=== PATIENT | female | born 1935 | race Caucasian/White ===

== ENCOUNTER 2019-09-18 09:57 | Outpatient (CLI) | payer MEDICARE, OTHER, SELFPAY ==
--- NOTE | 2019-09-18 09:59 | MM_ITS ---
WS: [id number] SCREENING DIGITAL MAMMOGRAM WITH CAD HISTORY: SCREENING COMPARISON: 08/20/2018, 07/25/2017 and 07/13/2016 Bilateral CC and MLO views submitted. Computer aided detection analyzed. Breast composition: The breasts are heterogeneously dense, which may obscure small masses. Biopsy cli p upper outer quadrant RIGHT breast. Benign breast arterial calcifications. MM/[place] [id number] IMPRESSION: BI-RADS: 2-Benign FOLLOW UP: 1 Year Follow-up
== END 2019-09-18 09:58 | disposition home or self-care (01) ==
LOC: RADSHAW 09:57
PROVIDERS: Family Provider Family Medicine; PCP Family Medicine; Visit Provider Family Medicine
DX: Z12.31 Encounter for screening mammogram for malignant neoplasm of breast (principal)
CPT/HCPCS: 77067

== ENCOUNTER 2020-02-05 11:27 | Emergency (ER) | payer MEDICARE, OTHER, SELFPAY ==
[2020-02-05] VITALS (12 sets, daily range): BP systolic 108–210; BP diastolic 47–86; PULSE 70–89; RESP 16–18; TEMP 36.6–36.8; O2SAT 94–98
--- NOTE | 2020-02-05 11:37 | CT_ITS ---
WS: [id number] CT HEAD TECHNIQUE: Noncontrast CT of the head obtained from the skullbase to the vertex. CLINICAL INFORMATION: Symptoms of Acute Stroke COMPARISON: None. DLP: 718.[address] scans at [facility] use at least one of these dose optimization techniques: automat ed exposure control; mA and/or kV adjustment per patient size (includes targeted exams where dose is matched to clinical indication); or iterative reconstruction. FINDINGS: No evidence of intracranial hemorrhage or mass effect. Ventricular system and basal cisterns are poe nt. Mild small vessel changes with moderate parenchymal volume loss. No extra-axial fluid collections . No evidence of mass or mass effect. Normal montanez-white differentiation. Paranasal sinuses and mastoid air cells are well aerated. .Normal visualized soft tissues. Attempted notification Miki Montanez DO at 02/05/2020 11:[address]/CT head wo con* [id number] IMPRESSION: 1. No evidence of intracranial hemorrhage or mass effect. 2. Mild small vessel changes moderate parenchymal volume loss. 3. No acute intracranial findings.
--- NOTE | 2020-02-05 11:37 | ECG_ITS ---
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 Measurements Intervals [place] Rate: 78 P: 45 [place]: 158 QRS: -44 QRSD: 92 T: 52 QT: 379 QTc: 433 Interpretive Statements SINUS RHYTHM LEFT AXIS DEVIATION [QRS AXIS < -30] MODERATE VOLTAGE CRITERIA FOR LVH, CONSIDER NORMAL VARIANT [MEETS CRITERIA IN ONE OF: R(aVL), S(V1), R(V5), R(V5/V6)+S(V1)] No previous ECG available for comparison Electronically Signed On 02-05-2020 23:33:22 CDT by Sallie Moon M.D. [id number] damion
--- NOTE | 2020-02-05 11:37 | XR_ITS ---
WS: [id number] Portable AP upright chest, 02/05/2020 Clinical Data: stroke symptoms Comparison: PA and lateral chest, 03/28/2006. Findings: No nodules, masses or effusions are seen. The heart is normal. The pulmonary vascularity is not increased. No pneumonia or pneumothorax is seen. The aortic arch and descending aorta are minima lly tortuous. There are monitor leads on the chest wall. XR/XR chest 1V portable [id number] Impression: Atherosclerosis.
--- NOTE | 2020-02-05 11:43 | ED_ITS ---
HPI - Weakness General: Chief complaint: Weakness Stated complaint: Possible stroke Time Seen by Provider: 02/05/20 11:37 History of Present Illness: HPI Narrative: 84 year old female in with stroke like symptoms. Just before 11:00 while shopping at [employer] she developed left sided weakness and inability to walk. She reports sensory loss on the left side as well. No facial droop or vision changes. MD Complaint: focal weakness, numbness and difficulty walking Onset (ago): minute(s) Duration: constant and improved Location: LUE, LLE and face Migration: none Severity: mild Quality: tingling and numbness Relieving factors: none Exacerbating factors: none Associated symptoms: Reports headache(s); Denies chest pain, confusion, decreased appetite, diaphoresis, fever(s), myalgias, nausea, rash or syncope Review of Systems General: Reports: 10 or more systems reviewed and unremarkable except in HPI and below Const: Denies: fever(s) or diaphoresis Eyes: Denies: change in vision or blurry vision ENMT: Denies: throat pain, enlarged tonsils or swelling of lips/tongue Card: Denies: chest pain or syncope GI: Denies: nausea Neuro: Reports: headache(s); Denies: confusion Physical Exam Const: COMMON NORMALS: no acute distress, average body habitus, patient oriented x3, no limitations, healthy appearing, alert and well nourished ORIENTATION/CONSCIOUSNESS: Yes oriented to person, Yes oriented to place and Yes oriented to time HENMT: COMMON NORMALS: normocephalic HEAD & SCALP: normocephalic Eye: COMMON NORMALS: Equal, round and reactive pupils present, EOMs intact bilaterally and conjunctivae normal CONJUNCTIVA: Yes conjunctivae normal PUPIL: Yes Equal, round and reactive pupils present Neck/C-Spine: COMMON NORMALS: full ROM, no lymphadenopathy, supple, no meningeal signs, no JVD, Thyroid normal and No carotid bruits THYROID: Thyroid normal Chest: COMMONS NORMALS: normal inspection of the chest and normal palpation of entire chest wall Resp: COMMON NORMALS: normal respiratory effort, No retractions, No use of accessory muscles, clear to auscultation bilaterally and percussion normal AUSCULTATION: clear to auscultation bilaterally PERCUSSION: percussion normal Cardio: COMMON NORMALS: no JVD GI: COMMON NORMALS: Normal to inspection, nondistended, normoactive bowel sounds present, Soft to palpation, non-tender, No hepatosplenomegaly present, no masses and no bruits PALPATION: Yes Soft to palpation and Yes No hepatosplenomegaly present : COMMON NORMALS: Yes no CVA tenderness BLADDER/KIDNEY EXAM: Yes no CVA tenderness Back/Pelvis: COMMON NORMALS: no CVA tenderness Extremity: COMMON NORMALS: normal to inspection, full ROM, capillary refill normal, no joint enlargement, no clubbing, cyanosis or edema, no calf tenderness and no pedal edema Neuro: COMMON NORMALS: patient oriented x3; negative for moves all extremities (Motor weakness on the left, sensory loss on the left upper and lower ext), negative for no focal motor deficits and negative for no sensory deficits noted SENSORIUM/ORIENTATION: Yes alert, Yes oriented to person, Yes oriented to place and Yes oriented to time MENINGEAL SIGNS: Yes no meningeal signs CRANIAL NERVES: Yes CN normal except as noted COORDINATION/BALANCE: No [id number] test normal GAIT: Yes Unable to assess gait SENSORY EXAM: Yes sensory level loss detected COORDINATION: [id number] test abnormal Skin: COMMON NORMALS: no rashes or lesions noted, no wounds, turgor normal, no jaundice, no petechiae and no mottling GENERAL SKIN EXAM: no rashes or lesions noted and turgor normal Course Vital Signs: Vital signs: Vital Signs Temperature 97.9 F 02/05/20 11:53 Pulse Rate 71 02/05/20 13:02 Respiratory Rate 16 02/05/20 13:17 Blood Pressure 180/80 02/05/20 13:17 Pulse Oximetry 95 02/05/20 13:17 MDM - Weakness MDM Narrative: Medical decision making narrative: 84-year-old female with abrupt onset of neurologic symptoms consistent with acute stroke. Immediate CT and neurology consultation via telemedicine will be obtained while we check labs. I talked with Dr. Maat neurologist from [facility] and he agreed that she was a good candidate her blood pressure came down without any intervention and we administer TPA and then subsequently sent her for a CTA that showed some focal stenosis of the cerebral artery but there is no large vessel occlusion. The patient was then transferred to [facility] under the care of Dr. Irene as we do not have neurology services here currently. The patient had total resolution of her symptoms on repeat examination. Lab Data: Labs: Lab Results 02/05/20 02/05/20 02/05/20 Range/Units 11:50 11:50 11:50 WBC 8.4 (4.0-10.0) 10^3/ uL RBC 4.63 (4.1-5.3) 10^6/u L Hgb 14.0 (11.5-15.3) g/dL Hct 43.1 (37.0-47.0) % MCV 93.1 (81-99) fL MCH 30.2 (28.0-34.0) pg MCHC 32.5 (30.0-36.0) g/dL RDW 12.9 (12.1-15.1) % Plt Count 248 (130-400) 10^3/c mm MPV 9.5 (7.4-10.4) fL Neut % (Auto) 50.4 % Lymph % (Auto) 38.9 % [place] % (Auto) 7.0 % Eos % (Auto) 3.0 % Baso % (Auto) 0.5 % Neut # (Auto) 4.23 (1.8-7.7) 10^3/u L Lymph # (Auto) 3.3 (0.8-4.8) 10^3/u L [place] # (Auto) 0.6 (0.2-0.9) 10^3/u L Eos # (Auto) 0.3 (0.0-0.8) 10^3/u L Baso # (Auto) 0.0 (0.0-0.1) 10^3/u L Nucleated RBC % (a uto) 0 % Nucleated RBCs # 0.0 /100WBC PT 12.00 (10.5-13.3) SECO NDS INR 0.86 (0.8-1.2) APTT 24.4 (23.9-36.7) SECO NDS Sodium 138 (136-145) mmol/L Potassium 4.1 (3.5-5.1) mmol/L Chloride 102 (98-107) mmol/L Carbon Dioxide 24 (22-29) mmol/L Anion Gap 16.1 (5-19) BUN 20 (8-23) mg/dL Creatinine 1.0 H (0.5-0.9) mg/dL Glucose 102 (65-115) mg/dL Calculated Osmolal ity 283 L (285-295) mOsm/k g Calcium 8.8 (8.5-10.5) mg/dL Total Bilirubin 0.4 (0.15-1.2) mg/dL AST 22 (0-32) U/L ALT 17 (0-33) U/L Alkaline Phosphata se 66 (35-105) IU/L Total Protein 6.7 (6.6-8.7) g/dL Albumin 4.1 (3.5-5.2) g/dL Globulin 2.6 (1.3-4.6) g/dL Urine Color (Yellow) Urine Appearance (CLEAR) Urine pH (5-7) Ur Specific Gravit y (1.005-1.030) Urine Protein (Negative) Urine Glucose (UA) (Normal) Urine Ketones (Negative) Urine Blood (Negative) Urine Nitrate (Negative) Urine Bilirubin (NEGATIVE) Urine Urobilinogen (Negative) mg/dL Ur Leukocyte Edda ase (Negative) Urine RBC (0-2) /hpf Urine WBC (0-5) /hpf Ur Squamous Epith Cells (0-5) Amorphous Sediment Urine Bacteria (NONE) Urine Mucus 02/05/20 Range/Units 12:23 WBC (4.0-10.0) 10^3/ uL RBC (4.1-5.3) 10^6/u L Hgb (11.5-15.3) g/dL Hct (37.0-47.0) % MCV (81-99) fL MCH (28.0-34.0) pg MCHC (30.0-36.0) g/dL RDW (12.1-15.1) % Plt Count (130-400) 10^3/c mm MPV (7.4-10.4) fL Neut % (Auto) % Lymph % (Auto) % [place] % (Auto) % Eos % (Auto) % Baso % (Auto) % Neut # (Auto) (1.8-7.7) 10^3/u L Lymph # (Auto) (0.8-4.8) 10^3/u L [place] # (Auto) (0.2-0.9) 10^3/u L Eos # (Auto) (0.0-0.8) 10^3/u L Baso # (Auto) (0.0-0.1) 10^3/u L Nucleated RBC % (a uto) % Nucleated RBCs # /100WBC PT (10.5-13.3) SECO NDS INR (0.8-1.2) APTT (23.9-36.7) SECO NDS Sodium (136-145) mmol/L Potassium (3.5-5.1) mmol/L Chloride (98-107) mmol/L Carbon Dioxide (22-29) mmol/L Anion Gap (5-19) BUN (8-23) mg/dL Creatinine (0.5-0.9) mg/dL Glucose (65-115) mg/dL Calculated Osmolal ity (285-295) mOsm/k g Calcium (8.5-10.5) mg/dL Total Bilirubin (0.15-1.2) mg/dL AST (0-32) U/L ALT (0-33) U/L Alkaline Phosphata se (35-105) IU/L Total Protein (6.6-8.7) g/dL Albumin (3.5-5.2) g/dL Globulin (1.3-4.6) g/dL Urine Color Yellow (Yellow) Urine Appearance Sl hazy (CLEAR) Urine pH 7 (5-7) Ur Specific Gravit y 1.005 (1.005-1.030) Urine Protein Neg (Negative) Urine Glucose (UA) Norm (Normal) Urine Ketones Negative (Negative) Urine Blood Neg (Negative) Urine Nitrate Negative (Negative) Urine Bilirubin Neg (NEGATIVE) Urine Urobilinogen Norm (Negative) mg/dL Ur Leukocyte Edda ase 1+ H (Negative) Urine RBC 0-4 H (0-2) /hpf Urine WBC 0-4 H (0-5) /hpf Ur Squamous Epith Cells 5-10 H (0-5) Amorphous Sediment Not Reportable Urine Bacteria 1+ H (NONE) Urine Mucus Trace Discharge Plan Discharge Patient Disposition: Transfer to ED Clinical Impression: Acute ischemic right MCA stroke Condition: Stable Referrals: Montana Carrington Jr, MD [Primary Care Provider] - Coding Level of Care Code ED Technical Sales Representatives for Chg Fwd Exam Comprehensive
[2020-02-05 11:58] LABS: Basophils % 0.5 %; Eosinophils # 0.3 10^3/uL (0.0-0.8); Hematocrit 43.1 % (37.0-47.0); Lymphocytes # 3.3 10^3/uL (0.8-4.8); Lymphocytes % 38.9 %; Mean Corpuscular HGB Conc 32.5 g/dL (30.0-36.0); Mean Corpuscular Hemoglobin 30.2 pg (28.0-34.0); Mean Corpuscular Volume 93.1 fL (81-99); Mean Platelet Volume 9.5 fL (7.4-10.4); Monocytes # 0.6 10^3/uL (0.2-0.9); Neutrophils # 4.23 10^3/uL (1.8-7.7); Neutrophils % 50.4 %; Nucleated Red Blood Cells % 0 %; Platelet Count 248 10^3/cmm (130-400); Red Blood Count 4.63 10^6/uL (4.1-5.3); Red Cell Distribution Width 12.9 % (12.1-15.1); White Blood Count 8.4 10^3/uL (4.0-10.0)
--- NOTE | 2020-02-05 12:00 | PC.NURSE ---
blood glucose is 103, nurse and doctor are aware
[2020-02-05 12:07] LABS: INR 0.86 (0.8-1.2)
[2020-02-05 12:08] LABS: Partial Thromboplastin Time 24.4 SECONDS (23.9-36.7)
[2020-02-05 12:12] LABS: Alanine Aminotransferase 17 U/L (0-33); Albumin Level 4.1 g/dL (3.5-5.2); Alkaline Phosphatase 66 IU/L (35-105); Anion Gap 16.1 (5-19); Aspartate Amino Transferase 22 U/L (0-32); Blood Urea Nitrogen 20 mg/dL (8-23); Calcium 8.8 mg/dL (8.5-10.5); Carbon Dioxide 24 mmol/L (22-29); Chloride 102 mmol/L (98-107); Globulin 2.6 g/dL (1.3-4.6); Glucose 102 mg/dL (65-115); Osmolality Calculated 283 mOsm/kg (285-295); Potassium 4.1 mmol/L (3.5-5.1); Sodium 138 mmol/L (136-145); Total Bilirubin 0.4 mg/dL (0.15-1.2); Total Protein 6.7 g/dL (6.6-8.7)
--- NOTE | 2020-02-05 12:12 | CTR_ITS ---
PROCEDURE INFORMATION: Exam: CT Angiography Head With Contrast Exam date and time: 02/05/2020 12:42 PM Age: 84 years old Clinical indication: Weakness; Additional info: Stroke S/P tpa TECHNIQUE: Imaging protocol: Computed tomography angiography of the head with intravenous contrast. 3D rendering: MIP and/or 3D reconstructed images were created by the technologist. Radiation optimization: All CT scans at this facility use at least one of these dose optimization techniques: automated exposure control; mA and/or kV adjustment per patient size (includes targeted exams where dose is matched to clinical indication); or iterative reconstruction. Contrast material: VISI; Contrast volume: 95 ml; Contrast route: INTRAVENOUS (IV); COMPARISON: CT head wo con* [id number] 02/05/2020 11:33 AM RADIATION DOSE METRICS: Total DLP (mGy-cm): 1835.97 FINDINGS: Anterior cerebral arteries: No occlusion or significant stenosis. No aneurysm. Right internal carotid artery: Intracranial segment is patent with no significant stenosis or occlusion. No aneurysm. Right middle cerebral artery: There is severe stenosis of the mid to distal M1 segment of the right middle cerebral artery. Right posterior cerebral artery: There is a origin of the right posterior cerebral artery. There is severe focal stenosis of the mid P2 segment of the right posterior cerebral artery. Right vertebral artery: No occlusion or significant stenosis. No aneurysm. Left internal carotid artery: Intracranial segment is patent with no significant stenosis or occlusion. No aneurysm. Left middle cerebral artery: No occlusion or significant stenosis. No aneurysm. Left posterior cerebral artery: No occlusion or significant stenosis. No aneurysm. Left vertebral artery: No occlusion or significant stenosis. No aneurysm. Basilar artery: No occlusion or significant stenosis. No aneurysm. IMPRESSION: 1. 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 2. Severe, focal stenosis of the mid P2 segment of the right posterior cerebral artery. PROCEDURE INFORMATION: Exam: CT Angiography Neck With Contrast Exam date and time: 02/05/2020 12:42 PM Age: 84 years old Clinical indication: Weakness; Additional info: Stroke S/P tpa TECHNIQUE: Imaging protocol: Computed tomography angiography of the neck with intravenous contrast. 3D rendering: MIP and/or 3D reconstructed images were created by the technologist. Radiation optimization: All CT scans at this facility use at least one of these dose optimization techniques: automated exposure control; mA and/or kV adjustment per patient size (includes targeted exams where dose is matched to clinical indication); or iterative reconstruction. Contrast material: VISI; Contrast volume: 95 ml; Contrast route: INTRAVENOUS (IV); COMPARISON: CT head wo con* [id number] 02/05/2020 11:33 AM RADIATION DOSE METRICS: Total DLP (mGy-cm): 1835.97 FINDINGS: Right common carotid artery: No stenosis. No dissection or occlusion. Right internal carotid artery: There are coarse calcific atherosclerotic changes of the right carotid bulb. Right external carotid artery: No occlusion or stenosis of the origin. Right vertebral artery: No stenosis. No dissection or occlusion. Left common carotid artery: No stenosis. No dissection or occlusion. Left internal carotid artery: There are coarse calcific atherosclerotic changes of the left carotid bulb. There is 30% stenosis of the left proximal internal carotid artery. Left external carotid artery: No occlusion or stenosis of the origin. Left vertebral artery: No stenosis. No dissection or occlusion. Thyroid: The left thyroid lobe is absent. The right thyroid lobe is heterogeneous. Bones/joints: No acute fracture. Soft tissues: Normal. No significant soft tissue swelling. Lymph nodes: Mild prevascular and AP window lymphadenopathy. CT/CT angio headneck* [id number] IMPRESSION: 30% stenosis of the left proximal internal carotid artery. REFERENCES: NASCET CRITERIA. The degree of internal carotid artery stenosis is based on NASCET criteria. Normal is no stenosis. Mild is less than 50% stenosis. Moderate is 50-69% stenosis. Severe is 70% to 99% stenosis. Total occlusion is no detectable patent lumen. Radiation Dose CTDIVOL = (mGy): DLP = 1835.97~1835.97 (mGy-cm)
[2020-02-05] MEDS: iodixanol 320 mg/mL 100mL Btl 95 ML IV (12:41)
[2020-02-05 12:59] LABS: Urine Appearance SL Hazy (CLEAR); Urine Color Yellow (Yellow); pH Urine 7 (5-7)
[2020-02-05 13:00] LABS: Add Urine Microscopic? YES; Bilirubin Urine Neg (NEGATIVE); Blood Urine Neg (Negative); Glucose Urine UA Norm (Normal); Ketones Urine Negative (Negative); Leukocyte Esterase Urine 1+ (Negative); Nitrate Urine Negative (Negative); Protein Urine Neg (Negative); Specific Gravity, Urine 1.005 (1.005-1.030); Urobilinogen Urine Norm (Negative)
--- NOTE | 2020-02-05 13:13 | PC.NURSE ---
Bolus 5.4 given at 1209 for one minute, then infused the rest at 54.0 over an hour.
[2020-02-05 13:20] LABS: Add Urine Culture? No; Bacteria Urine 1+; Mucus Urine TRACE; RBC Urine 0-4 /hpf (0-2); WBC Urine 0-4 /hpf (0-5)
== END 2020-02-05 19:05 ==
PROVIDERS: Emergency Provider Family Medicine; Family Provider Family Medicine; PCP Family Medicine
DX: I63.89 Other cerebral infarction (principal)
CPT/HCPCS: 12345; 70450; 70496; 70498; 71045; 80053; 81001; 81003; 85025; 85610; 85730; 93005; 96374; 99284; 99291; J2997; Q9967

== ENCOUNTER 2020-03-28 08:59 | Emergency (ER) | payer MEDICARE, OTHER, SELFPAY ==
[2020-03-28 09:06] VITALS: BP 168/52; PULSE 68; RESP 18; TEMP 36.6; O2SAT 96; BMI 23.8
--- NOTE | 2020-03-28 09:10 | XRR_ITS ---
PROCEDURE INFORMATION: Exam: XR Chest, 1 View Exam date and time: 03/28/2020 9:26 AM Age: 84 years old Clinical indication: Shortness of breath; Patient HX: SOB and hypertensive. History of colon cancer. ; Additional info: Dyspnea/cough TECHNIQUE: Imaging protocol: XR of the chest Views: 1 view. COMPARISON: CR XR chest 1V portable [id number] 02/05/2020 11:51 AM FINDINGS: Lungs: Emphysematous change and interstitial prominence. Pleural space: No pleural effusion. Heart/Mediastinum: No cardiomegaly. Bones/joints: Osteopenia and degenerative change. When correlating with the previous study, no significant interval changes are present. XR/XR chest 1V portable [id number] IMPRESSION: Stable appearance of the chest, not significantly changed from 02/05/20.
--- NOTE | 2020-03-28 09:10 | ECG_ITS ---
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 Measurements Intervals [place] Rate: 61 P: 44 [place]: 158 QRS: -38 QRSD: 97 T: 49 QT: 408 QTc: 414 Interpretive Statements SINUS RHYTHM LEFT AXIS DEVIATION [QRS AXIS < -30] Compared to ECG 02/05/2020 11:41:08 No significant changes Electronically Signed On 03-29-2020 17:17:27 CDT by Mary Kate Posada M.D. [id number] f
[2020-03-28 09:13] VITALS: BP 168/52; PULSE 67; RESP 18; O2SAT 96
--- NOTE | 2020-03-28 09:26 | PC.NURSE ---
Blood drawn at bedside by this nurse, labeled and sent to lab. EKG being done by tech at bedside. Pt with no needs, call light in reach.
--- NOTE | 2020-03-28 09:31 | ED_ITS ---
HPI - General Adult General: Chief complaint: General Medical Stated complaint: bp issues Time Seen by Provider: 03/28/20 09:06 History of Present Illness: HPI narrative: 84-year-old female presents to the emergency room with complaint of elevated blood pressure. She took hydrochloric thiazide and hydralazine as well as doxazosin before coming in today. Her blood pressure at home was recorded in the 190 systolic. She denies any chest pain any weakness in her arms or legs any difficulty speech or swallowing. Blood pressure on arrival here is 168/52 systolic. She did have a headache earlier. Onset (ago): hour(s) Location: head Radiation: non-radiation Severity: moderate Pain Consistency: intermittent Relieving factors: none Exacerbating factors: none Associated symptoms: Reports headache(s); Deny chest pain, confusion, cough, diaphoresis, decreased appetite, dyspnea, fevers/chills, malaise, nausea, rash, palpitations, seizures, short of breath, syncope, vomiting, weakness or other Treatments prior to arrival: none Review of Systems Const: Denies: malaise or diaphoresis Eyes: Denies: change in vision or blurry vision ENMT: Denies: throat pain, oral sores, dental pain, nasal discharge or nasal congestion Card: Denies: chest pain, palpitations or syncope Resp: Denies: dyspnea GI: Denies: nausea or vomiting : Denies: flank pain, dysuria, urinary frequency, urinary urgency, urinary incontinence or hematuria Musc: Denies: neck pain, back pain, extremity pain, extremity swelling, joint pain or joint swelling Skin/Breast: Denies: rash Neuro: Reports: headache(s); Denies: confusion Psych: Denies: anxiety, depression, loss of interest, visual hallucinations, auditory hallucinations, suicidal ideation or homicidal ideation Endo: Denies: polyuria, polydipsia, tired all the time or cold intolerance Justus/Lymph: Denies: easy bruising, easy bleeding, petechiae, enlarged lymph nodes or tender lymph nodes [facility] ED PFSH: Medical History (Updated 03/28/20 @ 09:51 by Cr Marie DO) Acute cystitis with hematuria Basal cell carcinoma of right forehead Female bladder prolapse Frequency of micturition History of colon cancer HTN (hypertension) Hyperlipidemia Hypothyroidism 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 Tendonitis Surgical History (Updated 03/28/20 @ 09:34 by Cr Marie DO) History of back surgery History of colon surgery RECONNECTED COLON Hx of bilateral cataract extraction Hx of hemorrhoidectomy Hx of hysterectomy Hx of partial thyroidectomy Social History Smoking and tobacco status: never smoked Alcohol intake: never Adopted: No Caregiver/support person: No Lives independently: No Household members: spouse Marital status: Current occupational status: retired Physical Exam Const: COMMON NORMALS: no acute distress GENERAL APPEARANCE: cooperative and comfortable ORIENTATION/CONSCIOUSNESS: Yes awake, Yes oriented to person, Yes oriented to place and Yes oriented to time HENMT: COMMON NORMALS: normocephalic, atraumatic, hearing grossly normal bilaterally, external ears normal, EAC's normal, TM's normal bilaterally, Normal nasal mucous membranes and turbinates present, moist oral mucous membranes and oropharynx normal HEAD & SCALP: normocephalic and atraumatic NOSE: Normal nasal mucous membranes and turbinates present EXTERNAL EAR: Yes external ears normal EXTERNAL AUDITORY CANAL: EAC's normal TYMPANIC MEMBRANE: TM's normal bilaterally Eye: COMMON NORMALS: Equal, round and reactive pupils present, EOMs intact bilaterally, conjunctivae normal and no scleral icterus CONJUNCTIVA: Yes conjunctivae normal PUPIL: Yes Equal, round and reactive pupils present Neck/C-Spine: COMMON NORMALS: full ROM, no lymphadenopathy, supple and no JVD Lymph: LYMPHATIC: no lymphadenopathy noted and no lymphedema noted Resp: COMMON NORMALS: normal respiratory effort, No retractions, No use of accessory muscles and clear to auscultation bilaterally AUSCULTATION: clear to auscultation bilaterally Cardio: COMMON NORMALS: no JVD, regular rate, regular rhythm and No murmurs present (Cardio) RATE: regular rate RHYTHM: regular rhythm GI: COMMON NORMALS: Soft to palpation and No hepatosplenomegaly present AUSCULTATION: Yes normoactive bowel sounds PALPATION: Yes Soft to palpation, No Tenderness to palpation present (GI), No Guarding due to palpation present (GI) and Yes No hepatosplenomegaly present Extremity: COMMON NORMALS: normal to inspection, capillary refill normal, no clubbing, cyanosis or edema, no calf tenderness and no pedal edema Neuro: SENSORIUM/ORIENTATION: Yes oriented to person, Yes oriented to place and Yes oriented to time Skin: COMMON NORMALS: no rashes or lesions noted GENERAL SKIN EXAM: no rashes or lesions noted Course Vital Signs: Vital signs: Vital Signs Temperature 97.8 F 03/28/20 09:06 Pulse Rate 65 03/28/20 09:41 Respiratory Rate 17 03/28/20 09:41 Blood Pressure 128/62 03/28/20 09:41 Pulse Oximetry 97 03/28/20 09:41 MDM - General Adult MDM Narrative: Medical decision making narrative: That she be better with off with her overall blood pressure management of avoiding the as needed's and using something regularly. We will start off on amlodipine 5 mg daily discontinue the hydrochlorothiazide also avoid the hydralazine. Recheck blood pressure with primary care doctor within the week. Lab Data: Labs: Lab Results 03/28/20 03/28/20 Range/Units 09:23 09:23 WBC 6.8 (4.0-10.0) 10^3/ uL RBC 4.46 (4.1-5.3) 10^6/u L Hgb 13.7 (11.5-15.3) g/dL Hct 42.1 (37.0-47.0) % MCV 94.4 (81-99) fL MCH 30.7 (28.0-34.0) pg MCHC 32.5 (30.0-36.0) g/dL RDW 13.5 (12.1-15.1) % Plt Count 226 (130-400) 10^3/c mm MPV 9.6 (7.4-10.4) fL Neut % (Auto) 65.5 % Lymph % (Auto) 24.2 % [place] % (Auto) 7.5 % Eos % (Auto) 2.2 % Baso % (Auto) 0.3 % Neut # (Auto) 4.43 (1.8-7.7) 10^3/u L Lymph # (Auto) 1.6 (0.8-4.8) 10^3/u L [place] # (Auto) 0.5 (0.2-0.9) 10^3/u L Eos # (Auto) 0.2 (0.0-0.8) 10^3/u L Baso # (Auto) 0.0 (0.0-0.1) 10^3/u L Nucleated RBC % (a uto) 0 % Nucleated RBCs # 0.0 /100WBC Sodium 140 (136-145) mmol/L Potassium 4.0 (3.5-5.1) mmol/L Chloride 105 (98-107) mmol/L Carbon Dioxide 26 (22-29) mmol/L Anion Gap 13.0 (5-19) BUN 35 H (8-23) mg/dL Creatinine 1.0 H (0.5-0.9) mg/dL GFR Calculation Not Reportable Glucose 120 H (65-115) mg/dL Calculated Osmolal ity 289 (285-295) mOsm/k g Calcium 8.8 (8.5-10.5) mg/dL Total Bilirubin 0.4 (0.15-1.2) mg/dL AST 20 (0-32) U/L ALT 27 (0-33) U/L Alkaline Phosphata se 61 (35-105) IU/L Total Protein 6.5 L (6.6-8.7) g/dL Albumin 4.1 (3.5-5.2) g/dL Globulin 2.4 (1.3-4.6) g/dL Discharge Plan Discharge Patient Disposition: Home Clinical Impression: Hypertension Condition: Stable Prescriptions: New amlodipine 5 mg tablet 5 mg PO DAILY Qty: 30 RF: 0 Discontinued hydrochlorothiazide 12.5 mg capsule 12.5 mg PO QAM RF: 0 No Action lorazepam 0.5 mg tablet 0.5 mg PO TID PRN (Reason: Anxiety) RF: 0 levothyroxine [Synthroid] 50 mcg tablet 50 mcg PO DAILY RF: 0 ezetimibe 10 mg tablet 10 mg PO DAILY RF: 0 Multiple Vitamins Tablet 1 tab PO DAILY RF: 0 Vitamin B-12 1,000 mcg tablet extended release 1,000 mcg PO DAILY RF: 0 Miralax 17 gram Powder In Packet 17 g PO DAILY PRN (Reason: Constipation) RF: 0 Stimulant Laxative Plus 8.6-50 mg tablet 1 tab PO BID PRN (Reason: Constipation) RF: 0 Plavix 75 mg Tablet 75 mg PO DAILY RF: 0 aspirin 81 mg Tablet,Delayed Release (Dr/Ec) 81 mg PO DAILY RF: 0 Zoloft 25 mg Tablet 25 mg PO DAILY RF: 0 doxazosin 4 mg tablet 4 mg PO DAILY RF: 0 gabapentin 100 mg capsule 100 mg PO TID RF: 0 Systane Complete 0.6 % Drops 1 drp OPHTHALMIC (EYE) TID PRN (Reason: unknown) RF: 0 baclofen 5 mg Tablet 5 mg PO DAILY RF: 0 Discharge Orders: Discharge Order (Routine); Ordered 03/28/20 Ordered By: Cr Marie Referrals: Montana Carrington Jr, MD [Primary Care Provider] - Discharge Diet: Usual diet Discharge Activity: Resume usual activity Activity Restrictions/Additional Instructions: Recheck blood pressure with your primary care physician within the next week. Start amlodipine 5 mg daily Coding Level of Care Code ED Roll Edge Stitcher Hand for Chg Fwd Exam Comprehensive
[2020-03-28 09:36] LABS: Basophils % 0.3 %; Eosinophils # 0.2 10^3/uL (0.0-0.8); Eosinophils % 2.2 %; Hematocrit 42.1 % (37.0-47.0); Hemoglobin 13.7 g/dL (11.5-15.3); Lymphocytes # 1.6 10^3/uL (0.8-4.8); Lymphocytes % 24.2 %; Mean Corpuscular HGB Conc 32.5 g/dL (30.0-36.0); Mean Corpuscular Hemoglobin 30.7 pg (28.0-34.0); Mean Corpuscular Volume 94.4 fL (81-99); Mean Platelet Volume 9.6 fL (7.4-10.4); Monocytes # 0.5 10^3/uL (0.2-0.9); Monocytes % 7.5 %; Neutrophils # 4.43 10^3/uL (1.8-7.7); Neutrophils % 65.5 %; Nucleated Red Blood Cells % 0 %; Platelet Count 226 10^3/cmm (130-400); Red Blood Count 4.46 10^6/uL (4.1-5.3); Red Cell Distribution Width 13.5 % (12.1-15.1); White Blood Count 6.8 10^3/uL (4.0-10.0)
[2020-03-28 09:41] VITALS: BP 128/62; PULSE 65; RESP 17; O2SAT 97
--- NOTE | 2020-03-28 09:41 | PC.NURSE ---
XR performed at bedside
[2020-03-28 09:58] LABS: Alanine Aminotransferase 27 U/L (0-33); Albumin Level 4.1 g/dL (3.5-5.2); Alkaline Phosphatase 61 IU/L (35-105); Aspartate Amino Transferase 20 U/L (0-32); Blood Urea Nitrogen 35 mg/dL (8-23); Calcium 8.8 mg/dL (8.5-10.5); Carbon Dioxide 26 mmol/L (22-29); Chloride 105 mmol/L (98-107); Globulin 2.4 g/dL (1.3-4.6); Glucose 120 mg/dL (65-115); Osmolality Calculated 289 mOsm/kg (285-295); Sodium 140 mmol/L (136-145); Total Bilirubin 0.4 mg/dL (0.15-1.2); Total Protein 6.5 g/dL (6.6-8.7)
[2020-03-28 10:38] VITALS: BP 149/74; PULSE 65; RESP 15; O2SAT 95
== END 2020-03-28 10:40 | disposition home or self-care (01) ==
PROVIDERS: Emergency Provider Family Medicine; PCP Family Medicine
DX: I10 Essential (primary) hypertension (principal); Z79.02 Long term (current) use of antithrombotics/antiplatelets; Z79.82 Long term (current) use of aspirin; Z85.828 Personal history of other malignant neoplasm of skin; E78.5 Hyperlipidemia, unspecified
CPT/HCPCS: 12345; 36415; 71045; 80053; 85025; 93005; 99282; 99283

== ENCOUNTER 2020-03-29 02:36 | Emergency (ER) | payer MEDICARE, OTHER, SELFPAY ==
[2020-03-29 02:46] VITALS: BP 139/66; PULSE 72; RESP 18; TEMP 36.8; O2SAT 97
--- NOTE | 2020-03-29 02:47 | CTR_ITS ---
PROCEDURE INFORMATION: Exam: CT Head Without Contrast Exam date and time: 03/29/2020 2:49 AM Age: 84 years old Clinical indication: Weakness, extremity; Left; Additional info: CVA TECHNIQUE: Imaging protocol: Computed tomography of the head without contrast. Radiation optimization: All CT scans at this facility use at least one of these dose optimization techniques: automated exposure control; mA and/or kV adjustment per patient size (includes targeted exams where dose is matched to clinical indication); or iterative reconstruction. Other technique: STROKE PROTOCOL was implemented. COMPARISON: CT head wo con* [id number] 02/05/2020 11:33 AM RADIATION DOSE METRICS: Total DLP (mGy-cm): 740.63 FINDINGS: Brain: Interval development of encephalomalacia right occipital lobe , right thalamus, and posterior limb right internal capsule. No findings of intracranial hemorrhage. Ventricles: Normal. No ventriculomegaly. Bones/joints: No acute findings. Sinuses: Visualized sinuses are unremarkable. No fluid levels. Mastoid air cells: Visualized mastoid air cells are well aerated. Soft tissues: Unremarkable. CT/CT head wo con* [id number] IMPRESSION: No findings of intracranial hemorrhage. New encephalomalacia right occipital lobe, right thalamus, and posterior limb right internal capsule. ASSESSMENT: ASPECTS ([place] Stroke Program Early CT Score) is 10. Radiation Dose CTDIVOL = (mGy): DLP = 740.63 (mGy-cm)
--- NOTE | 2020-03-29 02:47 | XR_ITS ---
WS: [id number] CHEST XRAY TECHNIQUE: Portable chest. CLINICAL INFORMATION: cva COMPARISON: March 28, 2020 FINDINGS: Heart: Normal cardiac silhouette. Aortic calcification. Tortuous thoracic aorta. Lungs: Chronic emphysematous changes. No acute pulmonary infiltrates. No focal pneumonia. Bones: Thoracic scoliosis convex left. Postoperative changes partially visualized and lumbar spine. O steopenia. XR/XR chest 1V portable [id number] IMPRESSION: No acute chest findings
--- NOTE | 2020-03-29 02:48 | CTR_ITS ---
PROCEDURE INFORMATION: Exam: CT Angiography Head With Contrast Exam date and time: 03/29/2020 2:49 AM Age: 84 years old Clinical indication: Weakness; Additional info: CVA TECHNIQUE: Imaging protocol: Computed tomography angiography of the head with intravenous contrast. 3D rendering (Not supervised by radiologist): MIP and/or 3D reconstructed images were created by the technologist. Radiation optimization: All CT scans at this facility use at least one of these dose optimization techniques: automated exposure control; mA and/or kV adjustment per patient size (includes targeted exams where dose is matched to clinical indication); or iterative reconstruction. Contrast material: VISI; Contrast volume: 95 ml; Contrast route: INTRAVENOUS (IV); COMPARISON: CT angio headneck* [id number] 02/05/2020 12:32 PM RADIATION DOSE METRICS: Total DLP (mGy-cm): 4103.85 FINDINGS: ANTERIOR CIRCULATION: Right internal carotid artery: Unremarkable. Intracranial segment is patent with no significant stenosis. No aneurysm. Right middle cerebral artery: Marked narrowing distal M1 segment right middle cerebral artery unchanged. Right anterior cerebral artery: Unremarkable. No occlusion or significant stenosis. No aneurysm. Left internal carotid artery: Unremarkable. Intracranial segment is patent with no significant stenosis. No aneurysm. Left middle cerebral artery: Moderate narrowing distal M1 segment left middle cerebral artery. Left anterior cerebral artery: Unremarkable. No occlusion or significant stenosis. No aneurysm. POSTERIOR CIRCULATION: Right vertebral artery: Hypoplastic segment of distal right vertebral artery unchanged. Left vertebral artery: Unremarkable. No occlusion or significant stenosis. No aneurysm. Basilar artery: Unremarkable. No occlusion or significant stenosis. No aneurysm. Right posterior cerebral artery: Mild narrowing in right posterior cerebral artery; interval improvement in caliber P2 segment right posterior cerebral artery. Left posterior cerebral artery: Moderate to marked narrowing proximal P1 segment left posterior cerebral artery. IMPRESSION: Interval improvement in caliber at the P2 segment right posterior cerebral artery. Areas of narrowing seen on today's exam are otherwise unchanged. No new abnormalities. PROCEDURE INFORMATION: Exam: CT Angiography Neck With Contrast Exam date and time: 03/29/2020 2:49 AM Age: 84 years old Clinical indication: Weakness; Additional info: CVA TECHNIQUE: Imaging protocol: Computed tomography angiography of the neck with intravenous contrast. 3D rendering (Not supervised by radiologist): MIP and/or 3D reconstructed images were created by the technologist. Radiation optimization: All CT scans at this facility use at least one of these dose optimization techniques: automated exposure control; mA and/or kV adjustment per patient size (includes targeted exams where dose is matched to clinical indication); or iterative reconstruction. Contrast material: VISI; Contrast volume: 95 ml; Contrast route: INTRAVENOUS (IV); COMPARISON: CT angio headneck* [id number] 02/05/2020 12:32 PM RADIATION DOSE METRICS: Total DLP (mGy-cm): 4103.85 FINDINGS: Right common carotid artery: No stenosis. No dissection or occlusion. Right internal carotid artery: No stenosis of the extracranial segment. No dissection or occlusion. Right external carotid artery: No occlusion or stenosis of the origin. Right vertebral artery: No stenosis. No dissection or occlusion. Left common carotid artery: No stenosis. No dissection or occlusion. Left internal carotid artery: Mild narrowing of proximal left internal carotid artery is less than 50% and unchanged . Left external carotid artery: No occlusion or stenosis of the origin. Left vertebral artery: No stenosis. No dissection or occlusion. Bones/joints: No acute fracture. Soft tissues: Normal. No significant soft tissue swelling. CT/CT angio headneck* [id number] IMPRESSION: No occlusion or interval change. REFERENCES: NASCET CRITERIA. The degree of internal carotid artery stenosis is based on NASCET criteria. Normal is no stenosis. Mild is less than 50% stenosis. Moderate is 50-69% stenosis. Severe is 70% to 99% stenosis. Total occlusion is no detectable patent lumen. Radiation Dose CTDIVOL = (mGy): DLP = 4103.85~4103.85 (mGy-cm)
--- NOTE | 2020-03-29 02:50 | W.ED.NEUROSD ---
HPI - Neuro Symptoms/Deficit General: Chief Complaint: Neuro Symptoms/Deficit Stated Complaint: numbing on left side Time Seen by Provider: 03/29/20 02:38 Source: patient Mode of arrival: ambulatory Limitations: no limitations History of Present Illness: HPI Narrative: 84-year-old female has a history of a stroke in January. Patient received TPA at that time. States went to bed at 9:00 and woke up this morning her left leg has felt heavy and she has had increased numbness in her left arm and leg. Denies any vomiting or diarrhea. She had a headache earlier but denies any headache currently. States she is having some chest fullness and felt like the water in her lungs. Patient states she always has numbness in her left extremity states it just seems worse tonight.. Associated symptoms: Deny chest pain, nausea or vomiting Review of Systems Const: Denies: fever(s), chills, body aches or change in appetite Eyes: Denies: blurry vision or eye discomfort ENMT: Denies: throat pain or dental pain Card: Denies: chest pain Resp: Denies: dyspnea GI: Denies: abdominal pain, nausea, vomiting or diarrhea : Denies: dysuria Musc: Denies: neck pain or back pain Skin/Breast: Denies: rash Neuro: Reports: numbness in extremities Psych: Denies: depression [place]/Lymph: Denies: easy bruising All/Imm: Denies: urticaria PFSH ED PFSH: Medical History (Updated 03/29/20 @ 05:07 by Inez Reece MD) Acute cystitis with hematuria Basal cell carcinoma of right forehead Female bladder prolapse Frequency of micturition History of colon cancer HTN (hypertension) Hyperlipidemia Hypothyroidism 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 Tendonitis Surgical History (Updated 03/28/20 @ 09:34 by Cr Marie DO) History of back surgery History of colon surgery RECONNECTED COLON Hx of bilateral cataract extraction Hx of hemorrhoidectomy Hx of hysterectomy Hx of partial thyroidectomy Social History Smoking and tobacco status: never smoked Alcohol intake: never Adopted: No Caregiver/support person: No Lives independently: No Household members: spouse Marital status: Current occupational status: retired NIH stroke score NIHSS: Level Of Consciousness - 1a: 0 Level Of Consciousness Questions - 1b: Both Correct Level Of Consciousness Commands - 1c: Both Correct Best Gaze - 2: Normal Visual Gomes - 3: No Visual Loss Facial Palsy - 4: Normal Motor Arm Right - 5: No Drift Motor Arm Left - 5: No Drift Motor Leg Right - 6: No Drift Motor Leg Left - 6: Effort Against [place] Limb Ataxia - 7: Absent Sensory - 8: Mild To Moderate Loss Best Language - 9: No Aphasia Dysarthia - 10: Normal Extinction And Inattention - 11: 0 Score: Total Score: 3 Physical Exam Const: COMMON NORMALS: no acute distress, patient oriented x3 and healthy appearing HENMT: COMMON NORMALS: normocephalic and atraumatic HEAD & SCALP: normocephalic and atraumatic Eye: COMMON NORMALS: Equal, round and reactive pupils present and EOMs intact bilaterally PUPIL: Yes Equal, round and reactive pupils present Neck/C-Spine: COMMON NORMALS: full ROM and supple Chest: COMMONS NORMALS: normal inspection of the chest and normal palpation of entire chest wall Resp: COMMON NORMALS: normal respiratory effort, No retractions, No use of accessory muscles and clear to auscultation bilaterally AUSCULTATION: clear to auscultation bilaterally Cardio: COMMON NORMALS: regular rate, regular rhythm and No murmurs present (Cardio) RATE: regular rate RHYTHM: regular rhythm GI: COMMON NORMALS: Normal to inspection, nondistended, normoactive bowel sounds present, Soft to palpation, non-tender and no masses PALPATION: Yes Soft to palpation Extremity: COMMON NORMALS: normal to inspection and full ROM Neuro: COMMON NORMALS: patient oriented x3, moves all extremities and no focal motor deficits Psych: COMMON NORMALS: mental status grossly normal, Normal thought process present and cooperative THOUGHT PROCESS: Normal thought process present Skin: COMMON NORMALS: no rashes or lesions noted and no wounds GENERAL SKIN EXAM: no rashes or lesions noted Course Vital Signs: Vital signs: Vital Signs Temperature 98.2 F 03/29/20 02:46 Pulse Rate 72 03/29/20 04:54 Respiratory Rate 20 H 03/29/20 04:54 Blood Pressure 129/60 03/29/20 04:54 Pulse Oximetry 97 03/29/20 04:54 MDM - Neuro Symptoms/Deficit MDM Narrative: Medical decision making narrative: Patient presents here with paresthesias to her left arm and leg. She states they have improved while she has been here. She states she has had periods of paresthesias to her left side after her stroke and has a constant numbness to that side. CT and CTA are normal and has no signs of acute stroke. Patient had also some mild chest pains and troponins are normal. Patient is stable for discharge and is to follow-up with primary care doctor in 3 to 5 days and return if worsening. Lab Data: Labs: Lab Results 03/29/20 03/29/20 03/29/20 Range/Units 02:46 02:53 02:53 WBC 8.5 (4.0-10.0) 10^3/ uL RBC 4.54 (4.1-5.3) 10^6/u L Hgb 13.9 (11.5-15.3) g/dL Hct 42.8 (37.0-47.0) % MCV 94.3 (81-99) fL MCH 30.6 (28.0-34.0) pg MCHC 32.5 (30.0-36.0) g/dL RDW 13.5 (12.1-15.1) % Plt Count 225 (130-400) 10^3/c mm MPV 9.6 (7.4-10.4) fL Neut % (Auto) 68.0 % Lymph % (Auto) 22.7 % [place] % (Auto) 7.0 % Eos % (Auto) 1.9 % Baso % (Auto) 0.2 % Neut # (Auto) 5.74 (1.8-7.7) 10^3/u L Lymph # (Auto) 1.9 (0.8-4.8) 10^3/u L [place] # (Auto) 0.6 (0.2-0.9) 10^3/u L Eos # (Auto) 0.2 (0.0-0.8) 10^3/u L Baso # (Auto) 0.0 (0.0-0.1) 10^3/u L Nucleated RBC % (a uto) 0 % Nucleated RBCs # 0.0 /100WBC PT 12.60 (12.1-14.9) SECO NDS INR 0.92 (0.8-1.2) Sodium (136-145) mmol/L Potassium (3.5-5.1) mmol/L Chloride (98-107) mmol/L Carbon Dioxide (22-29) mmol/L Anion Gap (5-19) BUN (8-23) mg/dL Creatinine (0.5-0.9) mg/dL GFR Calculation Glucose (65-115) mg/dL POC Glucose 97 (70-110) mg/dL Calculated Osmolal ity (285-295) mOsm/k g Calcium (8.5-10.5) mg/dL Total Bilirubin (0.15-1.2) mg/dL AST (0-32) U/L ALT (0-33) U/L Alkaline Phosphata se (35-105) IU/L Troponin T Baselin e (0-10) ng/L Troponin T 120 Min [place] (0-10) ng/L Delta Troponin T (0-10) ABS# Total Protein (6.6-8.7) g/dL Albumin (3.5-5.2) g/dL Globulin (1.3-4.6) g/dL 03/29/20 03/29/20 03/29/20 Range/Units 02:53 02:53 04:35 WBC (4.0-10.0) 10^3/ uL RBC (4.1-5.3) 10^6/u L Hgb (11.5-15.3) g/dL Hct (37.0-47.0) % MCV (81-99) fL MCH (28.0-34.0) pg MCHC (30.0-36.0) g/dL RDW (12.1-15.1) % Plt Count (130-400) 10^3/c mm MPV (7.4-10.4) fL Neut % (Auto) % Lymph % (Auto) % [place] % (Auto) % Eos % (Auto) % Baso % (Auto) % Neut # (Auto) (1.8-7.7) 10^3/u L Lymph # (Auto) (0.8-4.8) 10^3/u L [place] # (Auto) (0.2-0.9) 10^3/u L Eos # (Auto) (0.0-0.8) 10^3/u L Baso # (Auto) (0.0-0.1) 10^3/u L Nucleated RBC % (a uto) % Nucleated RBCs # /100WBC PT (12.1-14.9) SECO NDS INR (0.8-1.2) Sodium 141 (136-145) mmol/L Potassium 4.0 (3.5-5.1) mmol/L Chloride 104 (98-107) mmol/L Carbon Dioxide 25 (22-29) mmol/L Anion Gap 16.0 (5-19) BUN 29 H (8-23) mg/dL Creatinine 1.2 H (0.5-0.9) mg/dL GFR Calculation Not Reportable Glucose 108 (65-115) mg/dL POC Glucose (70-110) mg/dL Calculated Osmolal ity 290 (285-295) mOsm/k g Calcium 9.7 (8.5-10.5) mg/dL Total Bilirubin 0.5 (0.15-1.2) mg/dL AST 26 (0-32) U/L ALT 26 (0-33) U/L Alkaline Phosphata se 64 (35-105) IU/L Troponin T Baselin e 24 H (0-10) ng/L Troponin T 120 Min [place] 22.68 H (0-10) ng/L Delta Troponin T -1.32 L (0-10) ABS# Total Protein 6.4 L (6.6-8.7) g/dL Albumin 4.3 (3.5-5.2) g/dL Globulin 2.1 (1.3-4.6) g/dL Imaging Data^: CXR: Attestation: I personally reviewed and interpreted this imaging study as follows: My impression: no acute abnormality CT Head: Radiologist's impression: [address] [address] [address] Scan Report Signed Patient: Deanne Hankins Unit #: [id number] : 1935 Age/Sex: 84 / F ADM Date: 03/29/20 Loc: ER Room/Bed: Attending Dr: Ordering Provider/Ordering MD: Inez Reece MD Date of Service: 03/29/20 Procedure(s): CT head wo con* [id number] Accession Number(s): [id number] Report Number: [id number] PROCEDURE INFORMATION: Exam: CT Head Without Contrast Exam date and time: 03/29/2020 2:49 AM Age: 84 years old Clinical indication: Weakness, extremity; Left; Additional info: CVA TECHNIQUE: Imaging protocol: Computed tomography of the head without contrast. Radiation optimization: All CT scans at this facility use at least one of these dose optimization techniques: automated exposure control; mA and/or kV adjustment per patient size (includes targeted exams where dose is matched to clinical indication); or iterative reconstruction. Other technique: STROKE PROTOCOL was implemented. COMPARISON: CT head wo con* [id number] 02/05/2020 11:33 AM RADIATION DOSE METRICS: Total DLP (mGy-cm): 740.63 FINDINGS: Brain: Interval development of encephalomalacia right occipital lobe , right thalamus, and posterior limb right internal capsule. No findings of intracranial hemorrhage. Ventricles: Normal. No ventriculomegaly. Bones/joints: No acute findings. Sinuses: Visualized sinuses are unremarkable. No fluid levels. Mastoid air cells: Visualized mastoid air cells are well aerated. Soft tissues: Unremarkable. CT/CT head wo con* [id number] IMPRESSION: No findings of intracranial hemorrhage. New encephalomalacia right occipital lobe, right thalamus, and posterior limb right internal capsule. cta head: Attestation: I personally reviewed and interpreted this imaging study as follows: Radiologist's impression: [place] [address] CT Scan Report Signed Patient: Deanne Hankins Unit #: [id number] : 1935 Age/Sex: 84 / F ADM Date: 03/29/20 Loc: ER Room/Bed: Attending Dr: Ordering Provider/Ordering MD: Inez Reece MD Date of Service: 03/29/20 Procedure(s): CT angio headneck* [id number] Accession Number(s): [id number] Report Number: [id number] PROCEDURE INFORMATION: Exam: CT Angiography Head With Contrast Exam date and time: 03/29/2020 2:49 AM Age: 84 years old Clinical indication: Weakness; Additional info: CVA TECHNIQUE: Imaging protocol: Computed tomography angiography of the head with intravenous contrast. 3D rendering (Not supervised by radiologist): MIP and/or 3D reconstructed images were created by the technologist. Radiation optimization: All CT scans at this facility use at least one of these dose optimization techniques: automated exposure control; mA and/or kV adjustment per patient size (includes targeted exams where dose is matched to clinical indication); or iterative reconstruction. Contrast material: VISI; Contrast volume: 95 ml; Contrast route: INTRAVENOUS (IV); COMPARISON: CT angio headneck* [id number] 02/05/2020 12:32 PM RADIATION DOSE METRICS: Total DLP (mGy-cm): 4103.85 FINDINGS: ANTERIOR CIRCULATION: Right internal carotid artery: Unremarkable. Intracranial segment is patent with no significant stenosis. No aneurysm. Right middle cerebral artery: Marked narrowing distal M1 segment right middle cerebral artery unchanged. Right anterior cerebral artery: Unremarkable. No occlusion or significant stenosis. No aneurysm. Left internal carotid artery: Unremarkable. Intracranial segment is patent with no significant stenosis. No aneurysm. Left middle cerebral artery: Moderate narrowing distal M1 segment left middle cerebral artery. Left anterior cerebral artery: Unremarkable. No occlusion or significant stenosis. No aneurysm. POSTERIOR CIRCULATION: Right vertebral artery: Hypoplastic segment of distal right vertebral artery unchanged. Left vertebral artery: Unremarkable. No occlusion or significant stenosis. No aneurysm. Basilar artery: Unremarkable. No occlusion or significant stenosis. No aneurysm. Right posterior cerebral artery: Mild narrowing in right posterior cerebral artery; interval improvement in caliber P2 segment right posterior cerebral artery. Left posterior cerebral artery: Moderate to marked narrowing proximal P1 segment left posterior cerebral artery. IMPRESSION: Interval improvement in caliber at the P2 segment right posterior cerebral artery. Areas of narrowing seen on today's exam are otherwise unchanged. No new abnormalities. PROCEDURE INFORMATION: Exam: CT Angiography Neck With Contrast Exam date and time: 03/29/2020 2:49 AM Age: 84 years old Clinical indication: Weakness; Additional info: CVA TECHNIQUE: Imaging protocol: Computed tomography angiography of the neck with intravenous contrast. 3D rendering (Not supervised by radiologist): MIP and/or 3D reconstructed images were created by the technologist. Radiation optimization: All CT scans at this facility use at least one of these dose optimization techniques: automated exposure control; mA and/or kV adjustment per patient size (includes targeted exams where dose is matched to clinical indication); or iterative reconstruction. Contrast material: VISI; Contrast volume: 95 ml; Contrast route: INTRAVENOUS (IV); COMPARISON: CT angio headneck* [id number] 02/05/2020 12:32 PM RADIATION DOSE METRICS: Total DLP (mGy-cm): 4103.85 FINDINGS: Right common carotid artery: No stenosis. No dissection or occlusion. Right internal carotid artery: No stenosis of the extracranial segment. No dissection or occlusion. Right external carotid artery: No occlusion or stenosis of the origin. Right vertebral artery: No stenosis. No dissection or occlusion. Left common carotid artery: No stenosis. No dissection or occlusion. Left internal carotid artery: Mild narrowing of proximal left internal carotid artery is less than 50% and unchanged . Left external carotid artery: No occlusion or stenosis of the origin. Left vertebral artery: No stenosis. No dissection or occlusion. Bones/joints: No acute fracture. Soft tissues: Normal. No significant soft tissue swelling. CT/CT angio headneck* [id number] IMPRESSION: No occlusion or interval change. EKG Data^: EKG 1: Attestation: I personally reviewed and interpreted this EKG as follows: EKG interpretation date: 03/29/20 EKG interpretation time: 02:49 Interpretation: nsr hr [address] or t wave abnormalities qrs 93 qtc 408 Discharge Plan Discharge Patient Disposition: Home Clinical Impression: Paresthesia Condition: Stable Prescriptions: No Action lorazepam 0.5 mg tablet 0.5 mg PO TID PRN (Reason: Anxiety) RF: 0 levothyroxine [Synthroid] 50 mcg tablet 50 mcg PO DAILY RF: 0 ezetimibe 10 mg tablet 10 mg PO DAILY RF: 0 amlodipine 5 mg tablet 5 mg PO DAILY Qty: 30 RF: 0 Multiple Vitamins Tablet 1 tab PO DAILY RF: 0 Vitamin B-12 1,000 mcg tablet extended release 1,000 mcg PO DAILY RF: 0 Miralax 17 gram Powder In Packet 17 g PO DAILY PRN (Reason: Constipation) RF: 0 Stimulant Laxative Plus 8.6-50 mg tablet 1 tab PO BID PRN (Reason: Constipation) RF: 0 Plavix 75 mg Tablet 75 mg PO DAILY RF: 0 aspirin 81 mg Tablet,Delayed Release (Dr/Ec) 81 mg PO DAILY RF: 0 Zoloft 25 mg Tablet 25 mg PO DAILY RF: 0 doxazosin 4 mg tablet 4 mg PO DAILY RF: 0 gabapentin 100 mg capsule 100 mg PO TID RF: 0 Systane Complete 0.6 % Drops 1 drp OPHTHALMIC (EYE) TID PRN (Reason: unknown) RF: 0 baclofen 5 mg Tablet 5 mg PO DAILY RF: 0 Discharge Orders: Discharge Order (Routine); Ordered 03/29/20 Ordered By: Inez Reece Referrals: Montana Carrington Jr, MD [Primary Care Provider] - 1-3 days Discharge Diet: Advance as tolerated Discharge Activity: Resume usual activity Patient Instructions: Paresthesia (ED) Coding Level of Care Code ED Bryologist for [place] Fwd Exam Comprehensive
[2020-03-29 02:56] LABS: Glucose Point of Care 97 mg/dL (70-110)
[2020-03-29 03:01] LABS: Basophils % 0.2 %; Eosinophils # 0.2 10^3/uL (0.0-0.8); Eosinophils % 1.9 %; Hematocrit 42.8 % (37.0-47.0); Hemoglobin 13.9 g/dL (11.5-15.3); Lymphocytes # 1.9 10^3/uL (0.8-4.8); Lymphocytes % 22.7 %; Mean Corpuscular HGB Conc 32.5 g/dL (30.0-36.0); Mean Corpuscular Hemoglobin 30.6 pg (28.0-34.0); Mean Corpuscular Volume 94.3 fL (81-99); Mean Platelet Volume 9.6 fL (7.4-10.4); Monocytes # 0.6 10^3/uL (0.2-0.9); Neutrophils # 5.74 10^3/uL (1.8-7.7); Nucleated Red Blood Cells % 0 %; Platelet Count 225 10^3/cmm (130-400); Red Blood Count 4.54 10^6/uL (4.1-5.3); Red Cell Distribution Width 13.5 % (12.1-15.1); White Blood Count 8.5 10^3/uL (4.0-10.0)
[2020-03-29 03:18] LABS: INR 0.92 (0.8-1.2)
[2020-03-29 03:26] LABS: Troponin(5th) Baseline 24 ng/L (0-10)
[2020-03-29 03:27] LABS: Alanine Aminotransferase 26 U/L (0-33); Albumin Level 4.3 g/dL (3.5-5.2); Alkaline Phosphatase 64 IU/L (35-105); Aspartate Amino Transferase 26 U/L (0-32); Blood Urea Nitrogen 29 mg/dL (8-23); Calcium 9.7 mg/dL (8.5-10.5); Carbon Dioxide 25 mmol/L (22-29); Chloride 104 mmol/L (98-107); Globulin 2.1 g/dL (1.3-4.6); Glucose 108 mg/dL (65-115); Osmolality Calculated 290 mOsm/kg (285-295); Sodium 141 mmol/L (136-145); Total Bilirubin 0.5 mg/dL (0.15-1.2); Total Protein 6.4 g/dL (6.6-8.7)
[2020-03-29 03:47] VITALS: BP 126/63; PULSE 64; RESP 18; O2SAT 94
[2020-03-29 04:54] VITALS: BP 129/60; PULSE 72; RESP 20; O2SAT 97
[2020-03-29 05:00] LABS: Troponin 5 2HR 22.68 ng/L (0-10); Troponin 5 2HR Delta -1.32 ABS# (0-10)
== END 2020-03-29 05:19 | disposition home or self-care (01) ==
PROVIDERS: Emergency Provider Emergency Medicine; PCP Family Medicine
DX: R20.2 Paresthesia of skin (principal); Z79.82 Long term (current) use of aspirin; Z79.02 Long term (current) use of antithrombotics/antiplatelets; Z85.038 Personal history of other malignant neoplasm of large intestine; I10 Essential (primary) hypertension; E78.5 Hyperlipidemia, unspecified; I70.0 Atherosclerosis of aorta
CPT/HCPCS: 12345; 36416; 70450; 70496; 70498; 71045; 80053; 82962; 84484; 85025; 85610; 99283; 99284; Q9967

== ENCOUNTER 2020-04-15 00:38 | Emergency (ER) | payer MEDICARE, OTHER, SELFPAY ==
[2020-04-15 00:53] VITALS: BP 111/73; PULSE 68; RESP 16; TEMP 36.8; O2SAT 94; BMI 23.8
--- NOTE | 2020-04-15 01:11 | XR_ITS ---
WS: [id number] KUB, portable supine, 04/15/2020 Clinical Data: diarrhea Comparison: KUB, 08/07/2006. Findings: There are numerous right upper quadrant calcifications which have the appearance of gallstones. No genaro wel dilatation is seen. There is no evidence of obstruction. There are no abnormal intra-abdominal ma sses. There are surgical rola in the pelvis from colon surgery. There is a posterior fusion of the L3-L5 vertebral bodies bilaterally with laminectomies at L3 and L4. Degenerative change with disc space na rrowing at 1-L2 and L2-L3 is present. There is a levoscoliosis. XR/XR KUB portable [id number] Impression: 1. Cholelithiasis. 2. Intact posterior lumbar fusion L3-L5. 3. [place] from colon surgery in the pelvis.
--- NOTE | 2020-04-15 01:13 | ED_ITS ---
HPI - Nausea/Vomiting/Diarrhea General: Chief complaint: Nausea/Vomiting/Diarrhea Stated complaint: DIARRHEA X 3 DAYS Time Seen by Provider: 04/15/20 00:48 History of Present Illness: HPI Narrative: 84-year-old female who tested positive for COVID-19 earlier this week. Her only symptom has been diarrhea. She seemed to be doing well until last night, when she had more stool. She had had several stools throughout the day, and has become mildly weak. She denies any belly pain. States she had some nausea, but no vomiting. She denies any fever. No cough or shortness of breath MD elicited complaint: nausea and diarrhea Onset (ago): day(s) Description of vomiting: watery Description of diarrhea: watery Associated nausea: Yes Associated abdominal pain: No Location of pain: None Severity: moderate Associated symtoms: Reports fecal incontinence, anorexia, nausea and weakness; Denies altered mental status, anxiety, change in vision, chest pain, dizziness, dysuria, fevers/chills, headache(s), palpitations or short of breath Review of Systems Const: Denies: fever(s) or chills Eyes: Denies: change in vision ENMT: Denies: swelling of lips/tongue or sinus pain Card: Denies: chest pain or palpitations Resp: Denies: dyspnea, productive cough, non-productive cough or wheezing GI: Reports: nausea and fecal incontinence : Denies: dysuria or hematuria Musc: Denies: neck pain or back pain Skin/Breast: Denies: rash or erythema Neuro: Denies: headache(s), dizziness or vertigo Psych: Denies: anxiety PFSH ED PFSH: Medical History (Updated 04/15/20 @ 04:02 by Fausto Tristan DO) Acute cystitis with hematuria Basal cell carcinoma of right forehead Female bladder prolapse Frequency of micturition History of colon cancer HTN (hypertension) Hyperlipidemia Hypothyroidism 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 Tendonitis Surgical History (Updated 03/28/20 @ 09:34 by Cr Marie DO) History of back surgery History of colon surgery RECONNECTED COLON Hx of bilateral cataract extraction Hx of hemorrhoidectomy Hx of hysterectomy Hx of partial thyroidectomy Social History Smoking and tobacco status: never smoked Alcohol intake: never Adopted: No Caregiver/support person: No Lives independently: No Household members: spouse Marital status: Current occupational status: retired Physical Exam Const: EXAM LIMITATIONS: no altered mental status GENERAL APPEARANCE: well developed ORIENTATION/CONSCIOUSNESS: Yes oriented to person, Yes oriented to place and Yes oriented to time HENMT: COMMON NORMALS: normocephalic, external ears normal and Normal external nose present HEAD & SCALP: normocephalic NOSE: Normal external nose present and No nasal discharge present EXTERNAL EAR: Yes external ears normal Eye: COMMON NORMALS: Equal, round and reactive pupils present, EOMs intact bilaterally and conjunctivae normal EYELID: eyelids normal CONJUNCTIVA: Yes conjunctivae normal PUPIL: Yes Equal, round and reactive pupils present Neck/C-Spine: COMMON NORMALS: full ROM GENERAL: No tracheal deviation CERVICAL SPINE: Yes normal cervical lordosis and No Cervical spine tenderness Chest: COMMONS NORMALS: normal inspection of the chest CHEST: No tenderness Resp: EFFORT & INSPECTION: No tachypneic, No respiratory distress, No retractions, No uses accessory muscles and No tracheal deviation Cardio: COMMON NORMALS: regular rate and regular rhythm RATE: regular rate RHYTHM: regular rhythm HEART SOUNDS: no murmurs PERIPHERAL PULSES: radial pulses present GI: INSPECTION: No abdominal distension AUSCULTATION: No Hyperactive bowel sounds present and No Hypoactive bowel sounds present PALPATION: No Guarding due to palpation present (GI) and No Rigid due to palpation PERCUSSION: no dullness to percussion and no tympanic to percussion Neuro: SENSORIUM/ORIENTATION: Yes oriented to person, Yes oriented to place and Yes oriented to time Psych: COMMON NORMALS: mental status grossly normal Skin: COMMON NORMALS: no rashes or lesions noted GENERAL SKIN EXAM: no rashes or lesions noted Course Vital Signs: Vital signs: Vital Signs Temperature 98.2 F 04/15/20 00:53 Pulse Rate 65 04/15/20 04:40 Respiratory Rate 16 04/15/20 04:40 Blood Pressure 113/56 04/15/20 04:40 Pulse Oximetry 91 04/15/20 04:40 MDM - Nausea/Vomiting/Diarrhea MDM Narrative: Medical decision making narrative: 84-year-old female with a history of COVID-19. She presents with multiple episodes of diarrhea. She has had no diarrhea after administration of Lomotil here. She is feeling much better after IV fluid, less weak. Her laboratory is fairly benign. With improvement in her symptoms, and ability to treat the diarrhea at home, we will allow her home, with close observation by her to return for any worsening symptoms. Lab Data: Labs: Lab Results 04/15/20 04/15/20 04/15/20 Range/Units 01:56 01:56 01:56 WBC 6.8 (4.0-10.0) 10^3/ uL RBC 4.30 (4.1-5.3) 10^6/u L Hgb 12.9 (11.5-15.3) g/dL Hct 39.9 (37.0-47.0) % MCV 92.8 (81-99) fL MCH 30.0 (28.0-34.0) pg MCHC 32.3 (30.0-36.0) g/dL RDW 13.1 (12.1-15.1) % Plt Count 170 (130-400) 10^3/c mm MPV 10.0 (7.4-10.4) fL Neut % (Auto) 77.6 % Lymph % (Auto) 13.5 % [place] % (Auto) 7.5 % Eos % (Auto) 0.9 % Baso % (Auto) 0.1 % Neut # (Auto) 5.26 (1.8-7.7) 10^3/u L Lymph # (Auto) 0.9 (0.8-4.8) 10^3/u L [place] # (Auto) 0.5 (0.2-0.9) 10^3/u L Eos # (Auto) 0.1 (0.0-0.8) 10^3/u L Baso # (Auto) 0.0 (0.0-0.1) 10^3/u L Nucleated RBC % (a uto) 0 % Nucleated RBCs # 0.0 /100WBC Sodium 137 (136-145) mmol/L Potassium 3.7 (3.5-5.1) mmol/L Chloride 103 (98-107) mmol/L Carbon Dioxide 22 (22-29) mmol/L Anion Gap 15.7 (5-19) BUN 34 H (8-23) mg/dL Creatinine 1.0 H (0.5-0.9) mg/dL GFR Calculation Not Reportable Glucose 129 H (65-115) mg/dL Calculated Osmolal ity 293 (285-295) mOsm/k g Lactate 1.2 (0.5-2.2) mmol/L Calcium 9.0 (8.5-10.5) mg/dL Magnesium 1.9 (1.7-2.3) mg/dL Total Bilirubin 0.2 (0.15-1.2) mg/dL AST 18 (0-32) U/L ALT 12 (0-33) U/L Alkaline Phosphata se 65 (35-105) IU/L Total Protein 5.8 L (6.6-8.7) g/dL Albumin 3.6 (3.5-5.2) g/dL Globulin 2.2 (1.3-4.6) g/dL Lipase 57 (13-60) U/L Urine Color (Yellow) Urine Appearance (CLEAR) Urine pH (5-7) Ur Specific Gravit y (1.005-1.030) Urine Protein (Negative) Urine Glucose (UA) (Normal) Urine Ketones (Negative) Urine Blood (Negative) Urine Nitrate (Negative) Urine Bilirubin (Negative) Urine Urobilinogen (Negative) mg/dL Ur Leukocyte Edda ase (Negative) Urine RBC (0-2) /hpf Urine WBC (0-5) /hpf Ur Squamous Epith Cells (0-5) /hpf Amorphous Sediment Urine Bacteria (NONE) /hpf 04/15/ Range/Units 01:56 WBC (4.0-10.0) 10^3/ uL RBC (4.1-5.3) 10^6/u L Hgb (11.5-15.3) g/dL Hct (37.0-47.0) % MCV (81-99) fL MCH (28.0-34.0) pg MCHC (30.0-36.0) g/dL RDW (12.1-15.1) % Plt Count (130-400) 10^3/c mm MPV (7.4-10.4) fL Neut % (Auto) % Lymph % (Auto) % [place] % (Auto) % Eos % (Auto) % Baso % (Auto) % Neut # (Auto) (1.8-7.7) 10^3/u L Lymph # (Auto) (0.8-4.8) 10^3/u L [place] # (Auto) (0.2-0.9) 10^3/u L Eos # (Auto) (0.0-0.8) 10^3/u L Baso # (Auto) (0.0-0.1) 10^3/u L Nucleated RBC % (a uto) % Nucleated RBCs # /100WBC Sodium (136-145) mmol/L Potassium (3.5-5.1) mmol/L Chloride (98-107) mmol/L Carbon Dioxide (22-29) mmol/L Anion Gap (5-19) BUN (8-23) mg/dL Creatinine (0.5-0.9) mg/dL GFR Calculation Glucose (65-115) mg/dL Calculated Osmolal ity (285-295) mOsm/k g Lactate (0.5-2.2) mmol/L Calcium (8.5-10.5) mg/dL Magnesium (1.7-2.3) mg/dL Total Bilirubin (0.15-1.2) mg/dL AST (0-32) U/L ALT (0-33) U/L Alkaline Phosphata se (35-105) IU/L Total Protein (6.6-8.7) g/dL Albumin (3.5-5.2) g/dL Globulin (1.3-4.6) g/dL Lipase (13-60) U/L Urine Color Yellow (Yellow) Urine Appearance Cloudy (CLEAR) Urine pH 5 (5-7) Ur Specific Gravit y 1.020 (1.005-1.030) Urine Protein Neg (Negative) Urine Glucose (UA) Norm (Normal) Urine Ketones Negative (Negative) Urine Blood Neg (Negative) Urine Nitrate Negative (Negative) Urine Bilirubin Neg (Negative) Urine Urobilinogen Norm (Negative) mg/dL Ur Leukocyte Edda ase 2+ H (Negative) Urine RBC 0-4 H (0-2) /hpf Urine WBC 15-25 H (0-5) /hpf Ur Squamous Epith Cells 25-40 H (0-5) /hpf Amorphous Sediment Not Reportable Urine Bacteria 1+ H (NONE) /hpf Discharge Plan Discharge Patient Disposition: Home Clinical Impression: Diarrhea due to COVID-19 Condition: Stable Prescriptions: New Lomotil 2.5-0.025 mg tablet 1 tab PO Q6H PRN (Reason: diarrhea) Qty: 20 RF: 0 Zofran 4 mg tablet 4 mg PO Q6H PRN (Reason: nausea and vomiting) Qty: 10 RF: 0 No Action lorazepam 0.5 mg tablet 0.5 mg PO TID PRN (Reason: Anxiety) RF: 0 levothyroxine [Synthroid] 50 mcg tablet 50 mcg PO DAILY RF: 0 ezetimibe 10 mg tablet 10 mg PO DAILY RF: 0 amlodipine 5 mg tablet 5 mg PO DAILY Qty: 30 RF: 0 Multiple Vitamins Tablet 1 tab PO DAILY RF: 0 Vitamin B-12 1,000 mcg tablet extended release 1,000 mcg PO DAILY RF: 0 Miralax 17 gram Powder In Packet 17 g PO DAILY PRN (Reason: Constipation) RF: 0 Stimulant Laxative Plus 8.6-50 mg tablet 1 tab PO BID PRN (Reason: Constipation) RF: 0 Plavix 75 mg Tablet 75 mg PO DAILY RF: 0 aspirin 81 mg Tablet,Delayed Release (Dr/Ec) 81 mg PO DAILY RF: 0 Zoloft 25 mg Tablet 25 mg PO DAILY RF: 0 doxazosin 4 mg tablet 4 mg PO DAILY RF: 0 gabapentin 100 mg capsule 100 mg PO TID RF: 0 Systane Complete 0.6 % Drops 1 drp OPHTHALMIC (EYE) TID PRN (Reason: unknown) RF: 0 baclofen 5 mg Tablet 5 mg PO DAILY RF: 0 Discharge Orders: Discharge Order (Routine); Ordered 04/15/20 Ordered By: Fausto Tristan Referrals: Montana Carrington Jr, MD [Primary Care Provider] - 1-3 days Discharge Diet: Advance as tolerated Discharge Activity: Increase activity as tolerated Patient Instructions: Acute Diarrhea (ED) Activity Restrictions/Additional Instructions: Return for worsening diarrhea despite treatment, vomiting liquids or medications, development of belly pain, fever greater than 100, shortness of breath, other concerning symptoms. Discharge Date/Time: 04/15/20 04:41 Coding Level of Care Code ED Volunteer Patient Representative for Chg Fwd Exam Comprehensive
[2020-04-15] MEDS: diphenoxylate/atropine Tablet 2 TAB PO (01:36)
[2020-04-15] MEDS: ondansetron 2 mg/ML SDV 2 mL 4 MG IVP (01:36)
[2020-04-15] MEDS: sodium chloride 0.9% 1,000 ML 999 ML IV (01:37)
[2020-04-15 01:56] VITALS: BP 124/56; PULSE 65; RESP 18; O2SAT 93
[2020-04-15 02:07] LABS: Basophils % 0.1 %; Eosinophils # 0.1 10^3/uL (0.0-0.8); Eosinophils % 0.9 %; Hematocrit 39.9 % (37.0-47.0); Hemoglobin 12.9 g/dL (11.5-15.3); Lymphocytes # 0.9 10^3/uL (0.8-4.8); Lymphocytes % 13.5 %; Mean Corpuscular HGB Conc 32.3 g/dL (30.0-36.0); Mean Corpuscular Volume 92.8 fL (81-99); Monocytes # 0.5 10^3/uL (0.2-0.9); Monocytes % 7.5 %; Neutrophils # 5.26 10^3/uL (1.8-7.7); Neutrophils % 77.6 %; Nucleated Red Blood Cells % 0 %; Platelet Count 170 10^3/cmm (130-400); Red Cell Distribution Width 13.1 % (12.1-15.1); White Blood Count 6.8 10^3/uL (4.0-10.0)
[2020-04-15 02:27] LABS: Alanine Aminotransferase 12 U/L (0-33); Albumin Level 3.6 g/dL (3.5-5.2); Alkaline Phosphatase 65 IU/L (35-105); Anion Gap 15.7 (5-19); Aspartate Amino Transferase 18 U/L (0-32); Blood Urea Nitrogen 34 mg/dL (8-23); Carbon Dioxide 22 mmol/L (22-29); Chloride 103 mmol/L (98-107); Globulin 2.2 g/dL (1.3-4.6); Glucose 129 mg/dL (65-115); Lipase 57 U/L (13-60); Magnesium 1.9 mg/dL (1.7-2.3); Osmolality Calculated 293 mOsm/kg (285-295); Potassium 3.7 mmol/L (3.5-5.1); Sodium 137 mmol/L (136-145); Total Bilirubin 0.2 mg/dL (0.15-1.2); Total Protein 5.8 g/dL (6.6-8.7)
[2020-04-15 02:28] LABS: Lactate (Lactic Acid level) 1.2 mmol/L (0.5-2.2)
[2020-04-15 02:29] LABS: Add Urine Microscopic? YES; Bilirubin Urine Neg (Negative); Blood Urine Neg (Negative); Glucose Urine UA Norm (Normal); Ketones Urine Negative (Negative); Leukocyte Esterase Urine 2+ (Negative); Nitrate Urine Negative (Negative); Protein Urine Neg (Negative); Urine Appearance Cloudy (CLEAR); Urine Color Yellow (Yellow); Urobilinogen Urine Norm (Negative); pH Urine 5 (5-7)
[2020-04-15 02:34] LABS: Bacteria Urine 1+ /hpf; RBC Urine 0-4 /hpf (0-2); Squamous Epithelial Cell Urine 25-40 /hpf (0-5); WBC Urine 15-25 /hpf (0-5)
[2020-04-15 03:00] VITALS: BP 147/59; PULSE 78; RESP 16; O2SAT 95
--- NOTE | 2020-04-15 03:06 | PC.NURSE ---
pt assisted to commode with ED staff. New brief changed, pt assisted back to bed without difficulites
[2020-04-15 04:40] VITALS: BP 113/56; PULSE 65; RESP 16; O2SAT 91
== END 2020-04-15 04:41 | disposition home or self-care (01) ==
PROVIDERS: Emergency Provider Emergency Medicine; PCP Family Medicine
DX: U07.1 COVID-19 (principal); R19.7 Diarrhea, unspecified; Z79.02 Long term (current) use of antithrombotics/antiplatelets; Z79.82 Long term (current) use of aspirin; Z85.038 Personal history of other malignant neoplasm of large intestine; I10 Essential (primary) hypertension; E78.5 Hyperlipidemia, unspecified
CPT/HCPCS: 12345; 74018; 80053; 81001; 83605; 83690; 83735; 85025; 96361; 96374; 99283; J2405; J7030

== ENCOUNTER 2020-10-25 09:46 | Outpatient (CLI) | payer MEDICARE, OTHER, SELFPAY ==
--- NOTE | 2020-10-25 09:57 | MM_ITS ---
WS: [id number] BILATERAL SCREENING DIGITAL MAMMOGRAM WITH CAD HISTORY: SCREENING COMPARISON: 09/18/2019 and 08/20/2018 Bilateral CC and MLO views submitted. Computer aided detection analyzed. Breast composition: The breasts are heterogeneously dense, which may obscure small masses. No suspici ous masses, microcalcifications or architectural distortion. Biopsy clip upper outer quadrant of the RIGHT breast. Benign vascular calcifications. No interval change. MM/[place] [id number] IMPRESSION: BI-RADS: 2-Benign FOLLOW UP: 1 Year Follow-up
== END 2020-10-25 09:47 | disposition home or self-care (01) ==
PROVIDERS: PCP Nurse Practitioner Family; Visit Provider Family Medicine
DX: Z12.31 Encounter for screening mammogram for malignant neoplasm of breast (principal)
CPT/HCPCS: 77067

== ENCOUNTER 2020-11-29 06:00 | Outpatient (RCR) | payer MEDICARE, OTHER, SELFPAY | END 2020-12-19 23:59 | disposition home or self-care (01) | LOC: SPT 06:00 | PROVIDERS: PCP Nurse Practitioner Family; Referring Provider Psychiatry & Neurology Neurology; Visit Provider Psychiatry & Neurology Neurology | DX: R26.89 Other abnormalities of gait and mobility (principal) | CPT/HCPCS: 97110; 97162; 97530 ==

== ENCOUNTER 2020-12-20 06:00 | Outpatient (RCR) | payer MEDICARE, OTHER, SELFPAY | END 2021-01-18 23:59 | disposition home or self-care (01) | LOC: SPT 06:00 | PROVIDERS: PCP Nurse Practitioner Family; Referring Provider Psychiatry & Neurology Neurology; Visit Provider Psychiatry & Neurology Neurology | DX: R26.89 Other abnormalities of gait and mobility (principal) | CPT/HCPCS: 97110; 97530 ==

== ENCOUNTER 2021-01-07 20:01 | Emergency (ER) | payer MEDICARE, OTHER, SELFPAY ==
[2021-01-07 20:26] VITALS: BP 187/48; PULSE 66; RESP 16; TEMP 36.7; O2SAT 92; BMI 25.0
--- NOTE | 2021-01-07 22:59 | XRR_ITS ---
PROCEDURE INFORMATION: Exam: XR Right Hip Exam date and time: 01/07/2021 10:59 PM Age: 85 years old Clinical indication: Injury or trauma; Fall; Blunt trauma (contusions or hematomas); Right; Hip TECHNIQUE: Imaging protocol: XR Right hip. Views: 1 view hip with pelvis when performed. COMPARISON: CT Abdomen/Pelvis Renal [id number] 09/29/2016 11:10 AM FINDINGS: Bones/joints: No acute fractures. Unremarkable joint space alignment. 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 There is partial visualization of lower lumbar spine posterior fusion hardware. Soft tissues: Unremarkable. Gastrointestinal tract: Surgical anastomotic staple line in the midline of the lower pelvis. XR/XR hip RT 2-3V wo/w pel* [id number] IMPRESSION: Negative for acute right hip fracture.
--- NOTE | 2021-01-07 22:59 | XRR_ITS ---
PROCEDURE INFORMATION: Exam: XR Right Shoulder Exam date and time: 01/07/2021 10:59 PM Age: 85 years old Clinical indication: Injury or trauma; Fall; Blunt trauma (contusions or hematomas); Shoulder; Right TECHNIQUE: Imaging protocol: XR Right shoulder. Views: 2 or more views. COMPARISON: CR XR chest 1V portable [id number] 03/29/2020 2:51 AM FINDINGS: Bones/joints: No acute fractures. No joint space malalignment. Mild hypertrophic osseous spurring of the acromioclavicular joint. Narrowing of the lateral subacromial space. Bones are demineralized. 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 Soft tissues: Normal. XR/XR shoulder RT min 2V* [id number] IMPRESSION: Negative for acute fracture.
[2021-01-08 01:59] VITALS: BP 124/86; PULSE 80; RESP 16; TEMP 36.6; O2SAT 98
--- NOTE | 2021-01-08 02:33 | ED_ITS ---
HPI - Fall General: Chief Complaint: Fall Stated Complaint: Fall Time Seen by Provider: 01/07/21 22:36 History of Present Illness: HPI Narrative: 85-year-old female who fell in the bathroom tonight. She remembers the fall. She did not get knocked out. She jara d a brief head pain, which is gone. There were no tender spots on her head. She continues to complain of some right shoulder and right hip pain. She could bear weight. complaint: fall Onset (ago): hour(s) (7 PM) Fall from: standing Fall witnessed: no Place fall occurred: home Loss of consciousness: None Prolonged down time: no Symptoms prior to fall: none Context: tripped/slipped (She is unsure but believes) Location of injury - extremities: Right: shoulder and thigh Quality: aching Associated symptoms-after fall: Denies abdominal pain, chest pain, confusion, difficulty walking, headache(s) or neck pain Review of Systems Const: Denies: fever(s) or chills Card: Denies: chest pain GI: Denies: abdominal pain Musc: Denies: neck pain Neuro: Denies: headache(s), difficulty walking or confusion PFSH ED PFSH: Medical History (Updated 01/08/21 @ 00:18 by Fausto Tristan DO) Acute cystitis with hematuria Basal cell carcinoma of right forehead Female bladder prolapse Frequency of micturition History of colon cancer HTN (hypertension) Hyperlipidemia Hypothyroidism 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 Tendonitis Surgical History (Updated 03/28/20 @ 09:34 by Cr Marie DO) History of back surgery History of colon surgery RECONNECTED COLON Hx of bilateral cataract extraction Hx of hemorrhoidectomy Hx of hysterectomy Hx of partial thyroidectomy Social History Smoking and tobacco status: never smoked Alcohol intake: never Adopted: No Caregiver/support person: No Lives independently: No Household members: spouse Marital status: Current occupational status: retired Physical Exam Const: GENERAL APPEARANCE: well developed ORIENTATION/CONSCIOUSNESS: Yes oriented to person, Yes oriented to place and Yes oriented to time HENMT: COMMON NORMALS: external ears normal and Normal external nose present NOSE: Normal external nose present and No nasal discharge present EXTERNAL EAR: Yes external ears normal MOUTH: tongue normal TEETH & GINGIVA: no abnormal tooth and associated gingiva THROAT: posterior oropharynx normal; no peritonsillar mass Eye: COMMON NORMALS: Equal, round and reactive pupils present and EOMs intact bilaterally PUPIL: Yes Equal, round and reactive pupils present Neck/C-Spine: COMMON NORMALS: full ROM GENERAL: No tracheal deviation CERVICAL SPINE: Yes normal cervical lordosis and No Cervical spine tenderness Chest: COMMONS NORMALS: normal inspection of the chest CHEST: No tenderness Resp: COMMON NORMALS: clear to auscultation bilaterally EFFORT & INSPECTION: No tachypneic, No respiratory distress, No retractions, No uses accessory muscles and No tracheal deviation AUSCULTATION: clear to auscultation bilaterally, no rhonchi, no wheezes and lung sounds not diminished Cardio: COMMON NORMALS: regular rate and regular rhythm RATE: regular rate RHYTHM: regular rhythm HEART SOUNDS: no murmurs PERIPHERAL PULSES: radial pulses present GI: INSPECTION: No abdominal distension AUSCULTATION: No Hyperactive bowel sounds present and No Hypoactive bowel sounds present PALPATION: No Guarding due to palpation present (GI) and No Rigid due to palpation PERCUSSION: no dullness to percussion and no tympanic to percussion Neuro: SENSORIUM/ORIENTATION: Yes oriented to person, Yes oriented to place and Yes oriented to time Psych: COMMON NORMALS: mental status grossly normal Skin: COMMON NORMALS: no rashes or lesions noted GENERAL SKIN EXAM: no rashes or lesions noted Course Vital Signs: Vital signs: Vital Signs Temperature 98 F 01/08/21 01:59 Pulse Rate 80 01/08/21 01:59 Respiratory Rate 16 01/08/21 01:59 Blood Pressure 124/86 01/08/21 01:59 Pulse Oximetry 98 01/08/21 01:59 MDM - Fall MDM Narrative: Medical decision making narrative: Patient has no neurological symptoms. X-rays of the shoulder and hip are negative. She can bear weight. She will be allowed home. Discharge Plan Discharge Patient Disposition: Home Clinical Impression: Contusion of right shoulder Qualifiers: Encounter type: initial encounter Qualified Code(s): S40.011A - Contusion of right shoulder, initial encounter Contusion of hip, right Qualifiers: Encounter type: initial encounter Qualified Code(s): S70.01XA - Contusion of right hip, initial encounter Condition: Stable Prescriptions: No Action lorazepam 0.5 mg tablet 0.5 mg PO TID PRN (Reason: Anxiety) RF: 0 levothyroxine [Synthroid] 50 mcg tablet 50 mcg PO DAILY RF: 0 ezetimibe 10 mg tablet 10 mg PO DAILY RF: 0 Lomotil 2.5-0.025 mg tablet 1 tab PO Q6H PRN (Reason: diarrhea) Qty: 20 RF: 0 Zofran 4 mg tablet 4 mg PO Q6H PRN (Reason: nausea and vomiting) Qty: 10 RF: 0 amlodipine 5 mg tablet 5 mg PO DAILY Qty: 30 RF: 0 Multiple Vitamins Tablet 1 tab PO DAILY RF: 0 Vitamin B-12 1,000 mcg tablet extended release 1,000 mcg PO DAILY RF: 0 Miralax 17 gram Powder In Packet 17 g PO DAILY PRN (Reason: Constipation) RF: 0 Stimulant Laxative Plus 8.6-50 mg tablet 1 tab PO BID PRN (Reason: Constipation) RF: 0 Plavix 75 mg Tablet 75 mg PO DAILY RF: 0 aspirin 81 mg Tablet,Delayed Release (Dr/Ec) 81 mg PO DAILY RF: 0 Zoloft 25 mg Tablet 25 mg PO DAILY RF: 0 doxazosin 4 mg tablet 4 mg PO DAILY RF: 0 gabapentin 100 mg capsule 100 mg PO TID RF: 0 Systane Complete 0.6 % Drops 1 drp OPHTHALMIC (EYE) TID PRN (Reason: unknown) RF: 0 baclofen 5 mg Tablet 5 mg PO DAILY RF: 0 Discharge Orders: Discharge ED (Routine); Ordered 01/08/21 Ordered By: Fausto Tristan Referrals: Dior De La Garza CALENDER INSPECTOR [Primary Care Provider] - 4-7 days Discharge Diet: Advance as tolerated Discharge Activity: Increase activity as tolerated Patient Instructions: Contusion in Adults (ED) Activity Restrictions/Additional Instructions: Return for worsening frequency of falls, altered mental status, headache, weakness, any other concerning symptoms. Coding Level of Care Code ED International Controller for Uche Burnett
== END 2021-01-08 02:01 | disposition home or self-care (01) ==
PROVIDERS: Emergency Provider Emergency Medicine; PCP Nurse Practitioner Family
DX: S40.011A Contusion of right shoulder, initial encounter (principal); S70.01XA Contusion of right hip, initial encounter; Z79.82 Long term (current) use of aspirin; Z79.02 Long term (current) use of antithrombotics/antiplatelets; Z85.038 Personal history of other malignant neoplasm of large intestine; I10 Essential (primary) hypertension; E78.5 Hyperlipidemia, unspecified; W19.XXXA Unspecified fall, initial encounter
CPT/HCPCS: 73030; 73502; 99282

== ENCOUNTER 2021-01-18 15:45 | Outpatient (CLI) | payer MEDICARE, OTHER, SELFPAY ==
--- NOTE | 2021-01-18 | CT_ITS ---
WS: [id number] CT HEAD NONCONTRAST HISTORY: WEAKNESS, FALL TECHNIQUE: Contiguous axial imaging performed through the brain in 2.5 mm imaging. Bone and soft tiss ue windows. All CT scans at [facility] use at least one of these dose optimization techniq ues: automated exposure control; mA and/or kV adjustment per patient size (includes targeted exams wh ere dose is matched to clinical indication); or iterative reconstruction. DLP: 992.04 mGycm COMPARISON: 03/29/2020 No acute intracranial hemorrhage, midline shift or mass effect. Moderate atrophy is symmetric bilaterally. Focal area of encephalomalacia from a prior infarct in the RIGHT occipital lobe, RIGHT thalamus and posterior limb of the internal capsule. No significant prog ression of ischemia or encephalomalacia. Ventricles: Mild enlargement of the ventricles from encephalomalacia and atrophy. Paranasal sinuses: As visualized are clear. Mastoid air cells: Well pneumatized. Calvarium and scalp: Skull is intact with no soft tissue edema or swelling. Moderate atherosclerotic plaque in the intracranial carotid arteries. CT/CT head wo con* [id number] IMPRESSION: 1. Stable noncontrast head CT. No interval change since 03/29/2020. 2. 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 Prior infarct i n the RIGHT thalamus and posterior RIGHT internal capsule.
== END 2021-01-18 15:46 | disposition home or self-care (01) ==
LOC: RADWPI 15:57
PROVIDERS: PCP Nurse Practitioner Family; Visit Provider Nurse Practitioner Family
DX: R53.1 Weakness (principal); W19.XXXA Unspecified fall, initial encounter; G93.89 Other specified disorders of brain
CPT/HCPCS: 70450

== ENCOUNTER 2021-01-19 06:00 | Outpatient (RCR) | payer MEDICARE, OTHER, SELFPAY | END 2021-02-10 23:00 | disposition home or self-care (01) | LOC: SPT 06:00 | PROVIDERS: PCP Nurse Practitioner Family; Referring Provider Psychiatry & Neurology Neurology; Visit Provider Psychiatry & Neurology Neurology | DX: R26.89 Other abnormalities of gait and mobility (principal) | CPT/HCPCS: 97110 ==

== ENCOUNTER → 2021-05-08 13:32 | Outpatient (BNVA) | payer MEDICARE, OTHER, SELFPAY | PROVIDERS: PCP Nurse Practitioner Family; Referring Provider Nurse Practitioner Family; Visit Provider Nurse Practitioner Family | DX: R35.0 Frequency of micturition (principal); N39.41 Urge incontinence | CPT/HCPCS: 81003 ==

== ENCOUNTER 2021-06-22 08:55 | Outpatient (CLI) | payer MEDICARE, OTHER, SELFPAY ==
--- NOTE | 2021-06-22 | CT_ITS ---
WS: [id number] CT HEAD NONCONTRAST HISTORY: FALL WITH HEAD INJURY TECHNIQUE: Contiguous axial imaging performed through the brain in 2.5 mm imaging. Bone and soft tiss ue windows. All CT scans at [facility] use at least one of these dose optimization techniques: automated exposure control; mA and/or kV adjustment per patient size (includes targeted exams where dose is matched to clinical indication); or iterative reconstruction. DLP: 1172.07 mGycm COMPARISON: 01/18/2021, 03/29/2020 No acute intracranial hemorrhage, midline shift or mass effect. Moderate symmetric atrophy. Remote large RIGHT occipital lobe infarct with encephalomalacia. Prior la cunar infarct involving the RIGHT thalamus and posterior limb of the internal capsule. No new infarct s. Ventricles: There is mild diffuse ventriculomegaly based on central and peripheral atrophy. No inferior displacement of cerebellar tonsils. Paranasal sinuses: As visualized are clear. Mastoid air cells: Well pneumatized. Calvarium and scalp: Skull is intact with no soft tissue edema or swelling. CT/CT head wo con* [id number] IMPRESSION: 1. No acute intracranial hemorrhage or edema. 2. Moderate atrophy with a large RIGHT occipital lobe remote infarct and prior lacunar infarct in the RIGHT thalamus and posterior limb of internal capsule w hich are stable. 3. No skull fracture.
== END 2021-06-22 08:56 | disposition home or self-care (01) ==
PROVIDERS: PCP Nurse Practitioner Family; Visit Provider Nurse Practitioner Family
DX: S09.90XA Unspecified injury of head, initial encounter (principal); W19.XXXA Unspecified fall, initial encounter; G31.9 Degenerative disease of nervous system, unspecified; I63.81 Other cerebral infarction due to occlusion or stenosis of small artery
CPT/HCPCS: 70450

== ENCOUNTER → 2021-06-27 16:16 | Outpatient (BNVA) | payer MEDICARE, OTHER, SELFPAY | PROVIDERS: PCP Nurse Practitioner Family; Visit Provider Urology | DX: R35.0 Frequency of micturition (principal) | CPT/HCPCS: 81003 ==

== ENCOUNTER 2021-07-22 02:50 | Emergency (ER) | payer MEDICARE, OTHER, SELFPAY ==
[2021-07-22 02:51] VITALS: BP 143/59; PULSE 75; RESP 18; TEMP 36.8; O2SAT 96; BMI 24.7
--- NOTE | 2021-07-22 02:55 | ED_ITS ---
HPI - Nausea/Vomiting/Diarrhea General: Chief complaint: Abdominal Pain Stated complaint: N/V/D Time Seen by Provider: 07/22/21 02:52 Source: patient Mode of arrival: ambulatory Limitations: no limitations History of Present Illness: HPI Narrative: 86-year-old female states that she woke up this morning 2 hours ago with severe nausea vomiting and diarrhea. She states that yesterday her actually had the same symptoms but then improved. She states she has vomited multiple times. Patient called EMS they gave her Zofran in route she states she feels much improved her nausea is abated. She denies ever having any abdominal pain or chest pain denies any fevers. Associated nausea: Yes Associated symtoms: Reports nausea; Denies chest pain, dysuria or headache(s) Review of Systems Const: Denies: fever(s), chills, body aches or change in appetite Eyes: Denies: blurry vision or eye discomfort ENMT: Denies: throat pain or dental pain Card: Denies: chest pain Resp: Denies: dyspnea GI: Reports: nausea, vomiting and diarrhea : Denies: dysuria Musc: Denies: neck pain or back pain Skin/Breast: Denies: rash Neuro: Denies: headache(s) Psych: Denies: depression [place]/Lymph: Denies: easy bruising All/Imm: Denies: urticaria PFSH ED PFSH: Medical History Acute cystitis with hematuria Basal cell carcinoma of right forehead Female bladder prolapse History of colon cancer HTN (hypertension) Hyperlipidemia Hypothyroidism 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 Tendonitis Urgency incontinence Urinary frequency Surgical History History of back surgery History of colon surgery RECONNECTED COLON Hx of bilateral cataract extraction Hx of hemorrhoidectomy Hx of hysterectomy Hx of partial thyroidectomy Family History Father , AT AGE 91 Diabetes MOTHER AT AGE 95 NATURAL CAUSES Social History Alcohol intake: never Household members: spouse Marital status: Current occupational status: retired Physical Exam Const: COMMON NORMALS: no acute distress, patient oriented x3 and healthy appe maria HENMT: COMMON NORMALS: normocephalic and atraumatic HEAD & SCALP: normocephalic and atraumatic Eye: COMMON NORMALS: Equal, round and reactive pupils present and EOMs intact bilaterally PUPIL: Yes Equal, round and reactive pupils present Neck/C-Spine: COMMON NORMALS: full ROM and supple Chest: COMMONS NORMALS: normal inspection of the chest and normal palpation of entire chest wall Resp: COMMON NORMALS: normal respiratory effort, No retractions, No use of accessory muscles and clear to auscultation bilaterally AUSCULTATION: clear to auscultation bilaterally Cardio: COMMON NORMALS: regular rate, regular rhythm and No murmurs present (Cardio) RATE: regular rate RHYTHM: regular rhythm GI: COMMON NORMALS: Normal to inspection, nondistended, normoactive bowel sounds present, Soft to palpation, non-tender and no masses PALPATION: Yes Soft to palpation Extremity: COMMON NORMALS: normal to inspection and full ROM Neuro: COMMON NORMALS: patient oriented x3, moves all extremities and no focal motor deficits Psych: COMMON NORMALS: mental status grossly normal, Normal thought process present and cooperative THOUGHT PROCESS: Normal thought process present Skin: COMMON NORMALS: no rashes or lesions noted and no wounds GENERAL SKIN EXAM: no rashes or lesions noted Course Vital Signs: Vital signs: Vital Signs Temperature 98.3 F 07/22/21 02:51 Pulse Rate 88 07/22/21 04:35 Respiratory Rate 18 07/22/21 04:35 Blood Pressure 140/61 07/22/21 04:35 Pulse Oximetry 93 07/22/21 04:35 MDM - Nausea/Vomiting/Diarrhea MDM Narrative: Medical decision making narrative: Patient presents here with vomiting history sounds like a viral gastroenteritis and she been contacted same . Slightly elevated white count likely due to her vomiting as well. CT scan did show a 2 mm stone in the distal common bile duct no signs of common bile duct dilatation or blockage. Liver enzymes and bilirubin here are normal and she has no abdominal pain no abdominal tenderness I did speak to Dr. Moreland of surgery who recommended follow-up with him 2 to 3 days I did inform her she has any worsening vomiting or any pain at all she is to return to the ER she understands and agrees to plan Lab Data: Labs: Lab Results 07/22/21 07/22/21 07/22/21 02:59 02:59 04:44 WBC 16.6 10^3/uL H 10 ^3/uL (4.0-10.0) RBC 5.04 10^6/uL 10^6 /uL (4.1-5.3) Hgb 14.9 g/dL g/dL (11.5-15.3) Hct 46.8 % % (37.0-47.0) MCV 92.9 fl fl (81-99) MCH 29.6 pg pg (28.0-34.0) MCHC 31.8 g/dL g/dL (30.0-36.0) RDW 13.8 % % (12.1-15.1) Plt Count 247 10^3/cmm 10^3 /cmm (130-400) MPV 9.9 fL fL (7.4-10.4) Neut % (Auto) 84.4 % % Lymph % (Auto) 7.9 % % [place] % (Auto) 5.5 % % Eos % (Auto) 1.7 % % Baso % (Auto) 0.2 % % Neut # (Auto) 13.99 10^3/uL H 1 0^3/uL (1.8-7.7) Lymph # (Auto) 1.3 10^3/uL 10^3/ uL (0.8-4.8) [place] # (Auto) 0.9 10^3/uL 10^3/ uL (0.2-0.9) Eos # (Auto) 0.3 10^3/uL 10^3/ uL (0.0-0.8) Baso # (Auto) 0.0 10^3/uL 10^3/ uL (0.0-0.1) Nucleated RBC % (a uto) 0 % % Nucleated RBCs # 0.0 /100WBC /100W BC Sodium 141 mmol/L mmol/L (136-145) Potassium 4.2 mmol/L mmol/L (3.5-5.1) Chloride 105 mmol/L mmol/L (98-107) Carbon Dioxide 23 mmol/L mmol/L (22-29) Anion Gap 17.2 (5-19) BUN 28 mg/dL H mg/dL (8-23) Creatinine 1.0 mg/dL H mg/dL (0.5-0.9) GFR Calculation Not Reportable Glucose 153 mg/dL H mg/dL (65-115) Calculated Osmolal ity 301 mOsm/kg H mOs m/kg (285-295) Calcium 8.6 mg/dL mg/dL (8.5-10.5) Total Bilirubin 0.3 mg/dL mg/dL (0.15-1.2) AST 17 U/L U/L (0-32) ALT 14 U/L U/L (0-33) Alkaline Phosphata se 75 IU/L IU/L (35-105) Total Protein 6.8 g/dL g/dL (6.6-8.7) Albumin 4.2 g/dL g/dL (3.5-5.2) Globulin 2.6 g/dL g/dL (1.3-4.6) Lipase 193 U/L H U/L (13-60) Urine Color Yellow (Yellow) Urine Appearance Hazy A (CLEAR) Urine pH 5 (5-7) Ur Specific [place] y 1.020 (1.005-1.030) Urine Protein 2+ H (Negative) Urine Glucose (UA) Norm (Normal) Urine Ketones Negative (Negative) Urine Blood Neg (Negative) Urine Nitrate Negative (Negative) Urine Bilirubin Neg (Negative) Urine Urobilinogen Norm mg/dL mg/dL (Negative) Ur Leukocyte [place] ase 1+ H (Negative) Urine RBC 0-4 /hpf H /hpf (0-2) Urine WBC 10-15 /hpf H /hpf (0-5) Ur Squamous Epith Cells 25-40 /hpf H /hpf (0-5) Amorphous Sediment Not Reportable Urine Bacteria 2+ /hpf H /hpf (NONE) Discharge Plan Discharge Patient Disposition: Home Clinical Impression: Vomiting Qualifiers: Vomiting type: unspecified Nausea presence: with nausea Qualified Code(s): R11.2 - Nausea with vomiting, unspecified Gallstone Qualifiers: Cholecystitis presence: without cholecystitis Biliary obstruction: without biliary obstruction Qualified Code(s): K80.20 - Calculus of gallbladder without cholecystitis without obstruction Condition: Stable Prescriptions: New ondansetron 4 mg tablet,disintegrating 4 mg PO Q6H PRN (Reason: nausea and vomiting) Qty: 14 RF: 0 No Action amlodipine 5 mg tablet 2.5 mg PO DAILY RF: 0 levothyroxine [Synthroid] 50 mcg tablet 50 mcg PO DAILY RF: 0 ezetimibe 10 mg tablet 10 mg PO DAILY RF: 0 Multiple Vitamins Tablet 1 tab PO DAILY RF: 0 Vitamin B-12 1,000 mcg tablet extended release 1,000 mcg PO DAILY RF: 0 Miralax 17 gram Powder In Packet 17 g PO DAILY PRN (Reason: Constipation) RF: 0 Stimulant Laxative Plus 8.6-50 mg tablet 1 tab PO BID PRN (Reason: Constipation) RF: 0 aspirin 81 mg Tablet,Delayed Release (Dr/Ec) 81 mg PO DAILY RF: 0 Zoloft 25 mg Tablet 25 mg PO DAILY RF: 0 Systane Complete 0.6 % Drops 1 drp OPHTHALMIC (EYE) TID PRN (Reason: unknown) RF: 0 baclofen 5 mg Tablet 5 mg PO DAILY RF: 0 gabapentin 100 mg capsule 300 mg PO DAILY RF: 0 Discharge Orders: Discharge ED (Routine); Ordered 07/22/21 Ordered By: Inez Reece Referrals: Dior De La Garza BLOW TORCH BURNER [Primary Care Provider] - 1-3 days Discharge Diet: Advance as tolerated Discharge Activity: Resume usual activity Patient Instructions: Gallstones (ED), Acute Nausea and Vomiting (ED) Coding Level of Care Code ED Panel Flow Machine Operator for Chg Fwd Exam Comprehensive
[2021-07-22] MEDS: diphenoxylate/atropine Tablet 1 TAB PO (03:08)
[2021-07-22] MEDS: sodium chloride 0.9% 500 ML IV (03:08)
[2021-07-22 03:31] LABS: Basophils % 0.2 %; Eosinophils # 0.3 10^3/uL (0.0-0.8); Eosinophils % 1.7 %; Hematocrit 46.8 % (37.0-47.0); Hemoglobin 14.9 g/dL (11.5-15.3); Lymphocytes # 1.3 10^3/uL (0.8-4.8); Lymphocytes % 7.9 %; Mean Corpuscular HGB Conc 31.8 g/dL (30.0-36.0); Mean Corpuscular Hemoglobin 29.6 pg (28.0-34.0); Mean Corpuscular Volume 92.9 fl (81-99); Mean Platelet Volume 9.9 fL (7.4-10.4); Monocytes # 0.9 10^3/uL (0.2-0.9); Monocytes % 5.5 %; Neutrophils # 13.99 10^3/uL (1.8-7.7); Neutrophils % 84.4 %; Nucleated Red Blood Cells % 0 %; Platelet Count 247 10^3/cmm (130-400); Red Blood Count 5.04 10^6/uL (4.1-5.3); Red Cell Distribution Width 13.8 % (12.1-15.1); White Blood Count 16.6 10^3/uL (4.0-10.0)
--- NOTE | 2021-07-22 03:32 | CTR_ITS ---
PROCEDURE INFORMATION: Exam: CT Abdomen And Pelvis With Contrast Exam date and time: 07/22/2021 3:32 AM Age: 86 years old Clinical indication: Nausea and vomiting; Abdominal pain; Generalized; Prior surgery; Surgery type: Colon. Hysterectomy. Lumbar fusion. ; Patient HX: C/O diffuse abd pain with n/v/d. Elevated wbc and lipase. History of colon cancer. TECHNIQUE: Imaging protocol: Computed tomography of the abdomen and pelvis with contrast. Radiation optimization: All CT scans at this facility use at least one of these dose optimization techniques: automated exposure control; mA and/or kV adjustment per patient size (includes targeted exams where dose is matched to clinical indication); or iterative reconstruction. Contrast material: VISI 320; Contrast volume: 95 ml; Contrast route: INTRAVENOUS (IV); COMPARISON: CT Abdomen/Pelvis Renal [id number] 09/29/2016 11:10 AM RADIATION DOSE METRICS: Total DLP (mGy-cm): 1971.63 FINDINGS: Lungs: The lung bases are clear. No effusion Liver: Normal. No mass. Gallbladder and bile ducts: There is cholelithiasis without wall thickening or pericholecystic fluid. 2 mm stone present in the distal common bile duct. Pancreas: Normal. No ductal dilation. Spleen: Normal. No splenomegaly. Adrenal glands: Normal. No mass. Kidneys and ureters: There is a subcentimeter low-attenuation lesion/lesions, of the right kidney which are too small to accurately characterize by CT. Stomach and bowel: There are changes of prior rectosigmoid resection. Multiple loops of dilated small bowel are present in the abdomen with a relative caliber change in the right lower quadrant and fluid in the right side of the colon. Diverticulosis without diverticulitis. Appendix: No evidence of appendicitis. Intraperitoneal space: Unremarkable. No free air. No significant fluid collection. Vasculature: Unremarkable. No abdominal aortic aneurysm. Lymph nodes: Unremarkable. No enlarged lymph nodes. Urinary bladder: Unremarkable as visualized. Reproductive: There has been a hysterectomy. Bones/joints: Intact posterior fusion hardware L3-L5. Soft tissues: Unremarkable. CT/CT abdomen pelvis w con* [id number] IMPRESSION: 1. 2 mm stone present in the distal common bile duct. 2. Cholelithiasis without cholecystitis. 3. Ileus versus developing small bowel obstruction. 4. Diverticulosis without diverticulitis. COMMENTS: Consistent with the [employer]'s Incidental Findings Committee white paper (J Am Ted Radiol 2018): Any incidental renal lesion less than 1 cm or classified as too small to characterize, or any incidental cystic renal lesion characterized as simple-appearing, is likely benign. No follow-up imaging is recommended for these lesions per consensus recommendations based on imaging criteria.
[2021-07-22 03:47] VITALS: BP 143/59; PULSE 86; RESP 18; O2SAT 93
[2021-07-22 03:58] LABS: Alanine Aminotransferase 14 U/L (0-33); Albumin Level 4.2 g/dL (3.5-5.2); Alkaline Phosphatase 75 IU/L (35-105); Anion Gap 17.2 (5-19); Aspartate Amino Transferase 17 U/L (0-32); Blood Urea Nitrogen 28 mg/dL (8-23); Calcium 8.6 mg/dL (8.5-10.5); Carbon Dioxide 23 mmol/L (22-29); Chloride 105 mmol/L (98-107); Globulin 2.6 g/dL (1.3-4.6); Glucose 153 mg/dL (65-115); Lipase 193 U/L (13-60); Osmolality Calculated 301 mOsm/kg (285-295); Potassium 4.2 mmol/L (3.5-5.1); Sodium 141 mmol/L (136-145); Total Bilirubin 0.3 mg/dL (0.15-1.2); Total Protein 6.8 g/dL (6.6-8.7)
[2021-07-22] MEDS: iodixanol 320 mg/mL 100mL Btl IV (04:20)
[2021-07-22 04:35] VITALS: BP 140/61; PULSE 88; RESP 18; O2SAT 93
[2021-07-22] MEDS: ondansetron 4 MG Tablet 8 MG PO (05:31)
[2021-07-22 05:35] LABS: Add Urine Microscopic? YES; Bilirubin Urine Neg (Negative); Blood Urine Neg (Negative); Glucose Urine UA Norm (Normal); Ketones Urine Negative (Negative); Leukocyte Esterase Urine 1+ (Negative); Nitrate Urine Negative (Negative); Protein Urine 2+ (Negative); Urine Appearance Hazy (CLEAR); Urine Color Yellow (Yellow); Urobilinogen Urine Norm (Negative); pH Urine 5 (5-7)
[2021-07-22 05:36] LABS: Add Urine Culture? No; Bacteria Urine 2+ /hpf; RBC Urine 0-4 /hpf (0-2); Squamous Epithelial Cell Urine 25-40 /hpf (0-5)
== END 2021-07-22 05:32 | disposition home or self-care (01) ==
PROVIDERS: Emergency Provider Emergency Medicine; PCP Nurse Practitioner Family
DX: K80.20 Calculus of gallbladder without cholecystitis without obstruction (principal); R11.2 Nausea with vomiting, unspecified; I10 Essential (primary) hypertension; E78.5 Hyperlipidemia, unspecified; E03.9 Hypothyroidism, unspecified
CPT/HCPCS: 74177; 80053; 81001; 83690; 85025; 96360; 99284; J7040; Q0162; Q9967

== ENCOUNTER → 2021-09-05 15:35 | Outpatient (BNVA) | payer MEDICARE, OTHER, SELFPAY | PROVIDERS: PCP Nurse Practitioner Family; Visit Provider Nurse Practitioner Family | DX: R35.89 Other polyuria (principal); N39.41 Urge incontinence; R35.0 Frequency of micturition | CPT/HCPCS: 81003 ==

== ENCOUNTER 2021-10-18 22:45 | Emergency (ER) | payer MEDICARE, OTHER, SELFPAY ==
[2021-10-18 23:08] VITALS: BP 193/77; PULSE 86; RESP 16; TEMP 36.6; O2SAT 96; BMI 25.4
--- NOTE | 2021-10-18 23:26 | W.ED.GENADLT ---
HPI - General Adult General: Chief complaint: General Medical Stated complaint: Face feels swollen/pain after stroke History of Present Illness: Patient states that she has had swelling in her left ankle last few days. Also she did a lot activity today and then her face felt swelling on the left side for little while but now that feeling is gone. She denies any chest pain shortness of breath. She denies any change in her ability to do normal activities. Associated symptoms: Deny chest pain, dyspnea, headache(s), nausea, rash or vomiting Review of Systems Const: Denies: fever(s), chills or body aches Eyes: Denies: eye discomfort ENMT: Denies: throat pain Card: Reports: other (Edema to left foot x2 days); Denies: chest pain Resp: Denies: dyspnea GI: Denies: abdominal pain, nausea or vomiting Skin/Breast: Denies: rash Neuro: Reports: other (Face felt tingly earlier today.); Denies: headache(s) Psych: Denies: depression or suicidal ideation PFSH ED PFSH: Medical History Acute cystitis with hematuria Basal cell carcinoma of right forehead Female bladder prolapse History of colon cancer HTN (hypertension) Hyperlipidemia Hypothyroidism 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 Tendonitis Urgency incontinence Urinary frequency Surgical History History of back surgery History of colon surgery RECONNECTED COLON Hx of bilateral cataract extraction Hx of hemorrhoidectomy Hx of hysterectomy Hx of partial thyroidectomy Family History Father , AT AGE 91 Diabetes MOTHER AT AGE 95 NATURAL CAUSES Social History Smoking and tobacco status: never smoked Alcohol intake: never Household members: spouse Marital status: Current occupational status: retired Physical Exam Const: COMMON NORMALS: no acute distress, patient oriented x3 and alert HENMT: COMMON NORMALS: normocephalic and external ears normal HEAD & SCALP: normocephalic EXTERNAL EAR: Yes external ears normal Eye: COMMON NORMALS: EOMs intact bilaterally Neck/C-Spine: COMMON NORMALS: no JVD Resp: COMMON NORMALS: normal respiratory effort and No use of accessory muscles Cardio: COMMON NORMALS: no JVD OTHER: Nonpitting edema to the left foot. Calf is normal full range of motion of the leg. GI: INSPECTION: Yes normal to inspection Extremity: COMMON NORMALS: normal to inspection and full ROM Neuro: COMMON NORMALS: patient oriented x3 SENSORIUM/ORIENTATION: Yes alert OTHER: No neuro deficits noted. [id number] is fine [id number] normal right side left side he has problems due to pain and arm. Speech is normal , mouth movements normal , eyes with normal movements Psych: COMMON NORMALS: mental status grossly normal Skin: COMMON NORMALS: no rashes or lesions noted GENERAL SKIN EXAM: no rashes or lesions noted Course Vital Signs: Vital signs: Vital Signs Temperature 97.8 F 10/18/21 23:08 Pulse Rate 86 10/18/21 23:08 Respiratory Rate 16 10/18/21 23:08 Blood Pressure 193/77 10/18/21 23:08 Pulse Oximetry 96 10/18/21 23:08 [facility] - General Adult Medical Decision Making Presents with mild nonpitting edema to left ankle has been present for a few days. Patient taken off her water pill a few months ago. Patient also states that earlier today after she exerted herself cleaning for wand her left face had some tingling or pressure and that it resolved soon after she rested she presented [facility] for evaluation for previous symptoms. Patient take amlodipine 5 mg daily for blood pressure and not taking water pill presently. Patient placed back on water pill take every other day and asked to follow-up with PCP next week Lab Data : 10/18/21 23:37 10/18/21 23:37 Laboratory Results WBC 9.9 10^3/uL (4.0-10.0) 10/18/21 23:37 RBC 4.52 10^6/uL (4.1-5.3) 10/18/21 23:37 Hgb 13.8 g/dL (11.5-15.3) 10/18/21 23:37 Hct 42.4 % (37.0-47.0) 10/18/21 23:37 MCV 93.8 fl (81-99) 10/18/21 23:37 MCH 30.5 pg (28.0-34.0) 10/18/21 23:37 MCHC 32.5 g/dL (30.0-36.0) 10/18/21 23:37 RDW 13.2 % (12.1-15.1) 10/18/21 23:37 Plt Count 260 10^3/cmm (130-400) 10/18/21 23:37 MPV 9.4 fL (7.4-10.4) 10/18/21 23:37 Neut % (Auto) 59.5 % 10/18/21 23:37 Lymph % (Auto) 28.8 % 10/18/21 23:37 [place] % (Auto) 8.1 % 10/18/21 23:37 Eos % (Auto) 3.0 % 10/18/21 23:37 Baso % (Auto) 0.3 % 10/18/21 23:37 Neut # (Auto) 5.89 10^3/uL (1.8-7.7) 10/18/21 23:37 Lymph # (Auto) 2.9 10^3/uL (0.8-4.8) 10/18/21 23:37 [place] # (Auto) 0.8 10^3/uL (0.2-0.9) 10/18/21 23:37 Eos # (Auto) 0.3 10^3/uL (0.0-0.8) 10/18/21 23:37 Baso # (Auto) 0.0 10^3/uL (0.0-0.1) 10/18/21 23:37 Nucleated RBC % (auto) 0 % 10/18/21 23:37 Nucleated RBCs # 0.0 /100WBC 10/18/21 23:37 Sodium 139 mmol/L (136-145) 10/18/21 23:37 Potassium 4.3 mmol/L (3.5-5.1) 10/18/21 23:37 Chloride 107 mmol/L (98-107) 10/18/21 23:37 Carbon Dioxide 21 mmol/L (22-29) L 10/18/21 23:37 Anion Gap 15.3 (5-19) 10/18/21 23:37 BUN 22 mg/dL (8-23) 10/18/21 23:37 Creatinine 1.1 mg/dL (0.5-0.9) H 10/18/21 23:37 GFR Calculation Not Reportable 10/18/21 23:37 Glucose 134 mg/dL (65-115) H 10/18/21 23:37 Calculated Osmolality 293 mOsm/kg (285-295) 10/18/21 23:37 Calcium 9.7 mg/dL (8.5-10.5) 10/18/21 23:37 Urine Color Yellow (Yellow) 10/18/21 23:05 Urine Appearance Clear (CLEAR) 10/18/21 23:05 Urine pH 6 (5-7) 10/18/21 23:05 Ur Specific [place] 1.010 (1.005-1.030) 10/18/21 23:05 Urine Protein 2+ (Negative) H 10/18/21 23:05 Urine Glucose (UA) Norm (Normal) 10/18/21 23:05 Urine Ketones Negative (Negative) 10/18/21 23:05 Urine Blood Neg (Negative) 10/18/21 23:05 Urine Nitrate Negative (Negative) 10/18/21 23:05 Urine Bilirubin Neg (Negative) 10/18/21 23:05 Urine Urobilinogen Norm mg/dL (Negative) 10/18/21 23:05 Ur Leukocyte Esterase Negative (Negative) 10/18/21 23:05 Urine RBC Rare /hpf (0-2) 10/18/21 23:05 Urine WBC None /hpf (0-5) 10/18/21 23:05 Ur Squamous Epith Cells None /hpf (0-5) 10/18/21 23:05 Amorphous Sediment Not Reportable 10/18/21 23:05 Urine Bacteria Trace /hpf (NONE) 10/18/21 23:05 Discharge Plan Discharge Patient Disposition: Home Clinical Impression: Edema leg Condition: Stable Prescriptions: New hydrochlorothiazide 12.5 mg tablet 12.5 mg PO DAILY PRN (Reason: fluid build up) Qty: 14 0RF No Action amlodipine 5 mg tablet 2.5 mg PO DAILY 0RF vit C-vit [id number] Capsule PO 0RF levothyroxine [Synthroid] 50 mcg tablet 50 mcg PO DAILY 0RF ezetimibe 10 mg tablet 10 mg PO DAILY 0RF Vitamin B-12 1,000 mcg tablet extended release 1,000 mcg PO DAILY 0RF aspirin 81 mg Tablet,Delayed Release (Dr/Ec) 81 mg PO DAILY 0RF Zoloft 25 mg Tablet 25 mg PO DAILY 0RF Systane Complete 0.6 % Drops 1 drp OPHTHALMIC (EYE) TID PRN (Reason: unknown) 0RF Rx Instructions: pt states sometimes she only uses bid baclofen 5 mg Tablet 5 mg PO DAILY 0RF Discharge Orders: Discharge ED (Routine); Ordered 10/19/21 Ordered By: Naveed Keene Referrals: Dior De La Garza FNP [Primary Care Provider] - Discharge Diet: Usual diet Discharge Activity: Increase activity as tolerated Patient Instructions: Edema (ED) Activity Restrictions/Additional Instructions: Follow-up with medical provider as directed. Take medications as prescribed. Return to the ER or your medical provider if condition worsens. Please read and understand discharge instructions. If any questions ask please. Coding Level of Care Code ED Mortgage Collector for Uche Fwwalter Exam Comprehensive
[2021-10-18 23:41] LABS: Basophils % 0.3 %; Eosinophils # 0.3 10^3/uL (0.0-0.8); Hematocrit 42.4 % (37.0-47.0); Hemoglobin 13.8 g/dL (11.5-15.3); Lymphocytes # 2.9 10^3/uL (0.8-4.8); Lymphocytes % 28.8 %; Mean Corpuscular HGB Conc 32.5 g/dL (30.0-36.0); Mean Corpuscular Hemoglobin 30.5 pg (28.0-34.0); Mean Corpuscular Volume 93.8 fl (81-99); Mean Platelet Volume 9.4 fL (7.4-10.4); Monocytes # 0.8 10^3/uL (0.2-0.9); Monocytes % 8.1 %; Neutrophils # 5.89 10^3/uL (1.8-7.7); Neutrophils % 59.5 %; Nucleated Red Blood Cells % 0 %; Platelet Count 260 10^3/cmm (130-400); Red Blood Count 4.52 10^6/uL (4.1-5.3); Red Cell Distribution Width 13.2 % (12.1-15.1); White Blood Count 9.9 10^3/uL (4.0-10.0)
[2021-10-19 00:02] LABS: Anion Gap 15.3 (5-19); Blood Urea Nitrogen 22 mg/dL (8-23); Calcium 9.7 mg/dL (8.5-10.5); Carbon Dioxide 21 mmol/L (22-29); Chloride 107 mmol/L (98-107); Glucose 134 mg/dL (65-115); Osmolality Calculated 293 mOsm/kg (285-295); Potassium 4.3 mmol/L (3.5-5.1); Sodium 139 mmol/L (136-145)
[2021-10-19 00:11] LABS: Bilirubin Urine Neg (Negative); Blood Urine Neg (Negative); Glucose Urine UA Norm (Normal); Ketones Urine Negative (Negative); Leukocyte Esterase Urine Negative (Negative); Nitrate Urine Negative (Negative); Protein Urine 2+ (Negative); Urine Appearance Clear (CLEAR); Urine Color Yellow (Yellow); Urobilinogen Urine Norm (Negative); pH Urine 6 (5-7)
[2021-10-19 00:12] LABS: Add Urine Microscopic? YES; Bacteria Urine TRACE /hpf; RBC Urine RARE /hpf (0-2)
[2021-10-19 00:32] VITALS: BP 154/82; PULSE 81; RESP 16; TEMP 36.6; O2SAT 95
== END 2021-10-19 00:34 | disposition home or self-care (01) ==
PROVIDERS: Emergency Provider Nurse Practitioner Family; PCP Nurse Practitioner Family
DX: R60.0 Localized edema (principal); Z79.82 Long term (current) use of aspirin; I10 Essential (primary) hypertension
CPT/HCPCS: 80048; 81001; 81003; 85025; 99282

== ENCOUNTER 2021-11-21 06:00 | Outpatient (RCR) | payer MEDICARE, OTHER, SELFPAY | END 2021-12-19 23:59 | disposition home or self-care (01) | LOC: SPO 06:00 | PROVIDERS: PCP Nurse Practitioner Family; Referring Provider Nurse Practitioner Family; Visit Provider Nurse Practitioner Family | DX: I69.354 Hemiplegia and hemiparesis following cerebral infarction affecting left non-dominant side (principal); R53.1 Weakness | CPT/HCPCS: 97110; 97112; 97161; 97166; 97530; 97535 ==

== ENCOUNTER 2021-12-20 06:00 | Outpatient (RCR) | payer MEDICARE, OTHER, SELFPAY | END 2022-01-18 23:59 | disposition home or self-care (01) | LOC: SPO 06:00 | PROVIDERS: PCP Nurse Practitioner Family; Referring Provider Nurse Practitioner Family; Visit Provider Nurse Practitioner Family | DX: I69.354 Hemiplegia and hemiparesis following cerebral infarction affecting left non-dominant side (principal); R53.1 Weakness | CPT/HCPCS: 97110; 97535 ==

== ENCOUNTER 2022-01-19 06:00 | Outpatient (RCR) | payer MEDICARE, OTHER, SELFPAY | END 2022-02-18 23:59 | disposition home or self-care (01) | LOC: SPO 06:00 | PROVIDERS: PCP Nurse Practitioner Family; Referring Provider Nurse Practitioner Family; Visit Provider Nurse Practitioner Family | DX: I69.354 Hemiplegia and hemiparesis following cerebral infarction affecting left non-dominant side (principal) | CPT/HCPCS: 97110; 97112; 97535 ==

== ENCOUNTER 2022-03-05 14:03 | Outpatient (CLI) | payer MEDICARE, OTHER, SELFPAY ==
--- NOTE | 2022-03-05 14:26 | MM_ITS ---
WS: [id number] BILATERAL 3D TOMOSYNTHESIS DIGITAL SCREENING MAMMOGRAPHY WITH CAD CLINICAL INFORMATION: SCREENING HISTORY: Screening mammogram. No current complaints. COMPARISON: None. TECHNIQUE: Bilateral CC and MLO views. FINDINGS: The breasts are composed of heterogeneous fibroglandular density tissue, which can limit the detectio n of small underlying mass lesions. Biopsy clip upper outer RIGHT breast. Vascular calcification. Pun ctate and lucent centered calcifications. No suspicious mass, asymmetry, calcifications, or principal systems architect ural distortion. No evidence of malignancy. MM/[place] [id number] IMPRESSION: BI-RADS: 2-Benign FOLLOW UP: 1 Year Follow-up Recommend return to annual screening mammography.
== END 2022-03-05 14:04 | disposition home or self-care (01) ==
LOC: RAD 14:03
PROVIDERS: PCP Nurse Practitioner Family; Visit Provider Nurse Practitioner Family
DX: Z12.31 Encounter for screening mammogram for malignant neoplasm of breast (principal)
CPT/HCPCS: 77063; 77067

== ENCOUNTER → 2022-03-12 14:49 | Outpatient (BNVA) | payer MEDICARE, OTHER, SELFPAY | PROVIDERS: PCP Nurse Practitioner Family; Visit Provider Urology | DX: N39.41 Urge incontinence (principal); R35.0 Frequency of micturition | CPT/HCPCS: 81003; 99213 ==

== ENCOUNTER → 2022-06-21 15:13 | Outpatient (BNVA) | payer MEDICARE, OTHER, SELFPAY | PROVIDERS: PCP Nurse Practitioner Family; Visit Provider Podiatrist Foot & Ankle Surgery | DX: I73.9 Peripheral vascular disease, unspecified (principal); L60.3 Nail dystrophy; Z86.73 Personal history of transient ischemic attack (TIA), and cerebral infarction without residual deficits | CPT/HCPCS: 11721 ==

== ENCOUNTER 2022-08-28 19:37 | Emergency (ER) | payer MEDICARE, OTHER, SELFPAY ==
[2022-08-28 19:54] VITALS: BP 183/84; PULSE 83; RESP 19; TEMP 36.8; O2SAT 95; BMI 24.7
--- NOTE | 2022-08-28 22:09 | CTR_ITS ---
PROCEDURE INFORMATION: Exam: CT Head Without Contrast Exam date and time: 08/28/2022 10:16 PM Age: 87 years old Clinical indication: Injury or trauma; Blunt trauma (contusions or hematomas); Patient HX: Fall at home striking occiput against fridge door. History of posterior CVA three years ago. Takes daily aspirin. ; Additional info: Fell and hit head. On baby asa daily TECHNIQUE: Imaging protocol: Computed tomography of the head without contrast. Radiation optimization: All CT scans at this facility use at least one of these dose optimization techniques: automated exposure control; mA and/or kV adjustment per patient size (includes targeted exams where dose is matched to clinical indication); or iterative reconstruction. Other protocol: This patient has received 0 known CTs and 0 known cardiac [id number] medicine studies in the 12 months prior to the current study. COMPARISON: CT head wo con* [id number] 06/22/2021 9:11 AM RADIATION DOSE METRICS: Total DLP (mGy-cm): 960.68 FINDINGS: Brain: There is no evidence of intracranial hemorrhage. No mass effect or midline shift. There are mild confluent periventricular hypodensities consistent with chronic microischemic changes of white matter. There are a remote lacunar infarct in the right anterior thalamus and internal capsule as well as a remote right occipital lacunar infarct with encephalomalacia. This remains stable from the comparison study. There is mild cerebellar atrophy. Cerebral ventricles: There is moderate volume loss and commensurate ventricular dilatation, consistent with the patient's age. This demonstrates mild progression from the comparison examination. Paranasal sinuses: There are no air-fluid levels. Mastoid air cells: The visualized mastoid air cells are well aerated. Orbital cavities: There are postoperative changes of the ocular lenses. Bones/joints: No acute fracture. Soft tissues: Unremarkable. CT/CT head wo con* [id number] IMPRESSION: 1. No acute findings. 2. Mild cerebral small-vessel disease. 3. Age-related involutional changes of the brain. 4. Remote right thalamic and internal capsule lacunar infarct, unchanged from comparison. 5. Remote right occipital lobe infarct, stable.
--- NOTE | 2022-08-28 22:09 | ED_ITS ---
Documented by User: ALIRIO Guerra 08/29/22 01:32 HPI - Fall General: Chief Complaint: Fall Stated Complaint: fall hit head has knot Time Seen by Provider: 08/28/22 21:49 History of Present Illness: Patient reports that she fell tonight and hit her head on the refrigerator. She reports feeling a knot back there. She denies any loss of consciousness. She denies vomiting or vision changes. Patient reports that she was scared because she had a stroke 2-1/2 years ago and she does have frequent falls but never has really hit her head and had a knot. She does take baby aspirin every day. 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 She reports having some weakness and decreased mobility with her left upper extremity. She walks at home with the aid of a walker. 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 Associated symptoms-after fall: Reports headache(s); Denies abdominal pain, chest pain or vertigo Review of Systems Const: Denies: fever(s) or chills Card: Denies: chest pain or palpitations Resp: Denies: dyspnea, productive cough, non-productive cough or pain on inspiration GI: Denies: abdominal pain, nausea or vomiting : Denies: flank pain, difficulty voiding or dysuria Neuro: Reports: headache(s), weakness in extremities (Chronic left side weakness) and frequent falls; Denies: numbness in extremities, dizziness, vertigo or behavioral changes PFSH ED PFSH: Medical History Acute cystitis with hematuria Basal cell carcinoma of right forehead Female bladder prolapse History of colon cancer HTN (hypertension) Hyperlipidemia Hypothyroidism 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 Tendonitis Urgency incontinence Urinary frequency Surgical History History of back surgery History of colon surgery RECONNECTED COLON Hx of bilateral cataract extraction Hx of hemorrhoidectomy Hx of hysterectomy Hx of partial thyroidectomy Family History Father , AT AGE 91 Diabetes MOTHER AT AGE 95 NATURAL CAUSES Social History Smoking and tobacco status: never smoked Alcohol intake: never Household members: spouse Marital status: Current occupational status: retired History of recent travel: No Physical Exam Const: COMMON NORMALS: no acute distress, patient oriented x3 and alert HENMT: HEAD & SCALP: hematoma (Right parietal) Eye: PUPIL: Yes pupil size - right (2) and Yes pupil size - left (2.5) Neck/C-Spine: COMMON NORMALS: no meningeal signs Resp: COMMON NORMALS: normal respiratory effort and No use of accessory muscles : COMMON NORMALS: Yes no CVA tenderness BLADDER/KIDNEY EXAM: Yes no CVA tenderness Back/Pelvis: COMMON NORMALS: no CVA tenderness, thoracic and lumbar spine normal to inspection and no thoracic nor lumbar tenderness Neuro: COMMON NORMALS: patient oriented x3 SENSORIUM/ORIENTATION: Yes alert MENINGEAL SIGNS: Yes no meningeal signs COORDINATION/BALANCE: [id number]-[id number] se test normal (Decreased coordination with left hand-chronic) SPEECH: speech normal GAIT: Yes Assistive device used walker SENSORY EXAM: Yes extremities (Decree sensation left hand/fingers-chronic) COORDINATION: [id number]-[id number] test normal (Decreased coordination with left hand-chronic) Right pupil size (mm): 2 Left pupil size (mm): 2.5 OTHER: Patient reports chronic decreased peripheral vision in left eye from her previous stroke Course Vital Signs: Vital signs: Vital Signs Temperature 98.3 F 08/28/22 19:54 Pulse Rate 83 08/28/22 19:54 Respiratory Rate 19 H 08/28/22 19:54 Blood Pressure 183/84 08/28/22 19:54 Pulse Oximetry 95 08/28/22 19:54 Oxygen Delivery Me thod 08/28/22 19:54 MDM - Fall Medical Decision Making Differentials include closed head injury, concussion, hematoma, intracranial injury While patient is here she started complaining of general body pain and soreness from the fall. She requested a dose of pain medication to help with that [address] head without contrast shows no acute findings. We will discharge patient home. Advised her of CT results. Recommend conservative treatment at home and close monitoring. Follow-up with primary care provider. Return to the ER for any new or worsening symptoms. Lab Data Radiology Impressions Head CT 08/28/22 22:09 IMPRESSION: 1. No acute findings. 2. Mild cerebral small-vessel disease. 3. Age-related involutional changes of the brain. 4. Remote right thalamic and internal capsule lacunar infarct, unchanged from comparison. 5. Remote right occipital lobe infarct, stable. Discharge Plan Discharge Patient Disposition: Home Clinical Impression: Mild closed head injury Condition: Stable Prescriptions: No Action amlodipine 5 mg tablet 2.5 mg PO DAILY acetaminophen [Tylenol] 325 mg tablet 325 mg PO QID PRN cholecalciferol (vitamin D3) 10 mcg (400 unit) capsule 10 mcg PO DAILY levothyroxine [Synthroid] 50 mcg tablet 50 mcg PO DAILY ezetimibe 10 mg tablet 10 mg PO DAILY Vitamin B-12 1,000 mcg tablet extended release 1,000 mcg PO DAILY aspirin 81 mg Tablet,Delayed Release (Dr/Ec) 81 mg PO DAILY Zoloft 25 mg Tablet 25 mg PO DAILY Systane Complete 0.6 % Drops 1 drp OPHTHALMIC (EYE) TID PRN (Reason: unknown) Rx Instructions: pt states sometimes she only uses bid baclofen 5 mg Tablet 5 mg PO DAILY hydrochlorothiazide 12.5 mg tablet 12.5 mg PO DAILY PRN (Reason: fluid build up) Qty: 14 0RF Discharge Orders: Discharge ED (Routine); Ordered 08/28/22 Ordered By: Indira De La Garza Referrals: Dior De La Garza FNP [Primary Care Provider] - Discharge Diet: Usual diet Discharge Activity: Increase activity as tolerated Patient Instructions: Head Injury (ED) Activity Restrictions/Additional Instructions: Your CT scan today did not show any acute changes. I recommend conservative management at home including rest. Follow-up with primary care provider as needed. Return to the ER for any new or worsening symptoms. Coding Level of Care Code ED Mailroom Associate for Chg Fwd Documented by User: Cr Marie DO 08/29/22 06:10 HPI - Fall General: Chief Complaint: Fall Stated Complaint: fall hit head has knot Time Seen by Provider: 08/28/22 21:49 PFSH ED PFSH: Medical History Acute cystitis with hematuria Basal cell carcinoma of right forehead Female bladder prolapse History of colon cancer HTN (hypertension) Hyperlipidemia Hypothyroidism 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 Tendonitis Urgency incontinence Urinary frequency Surgical History History of back surgery History of colon surgery RECONNECTED COLON Hx of bilateral cataract extraction Hx of hemorrhoidectomy Hx of hysterectomy Hx of partial thyroidectomy Family History Father , AT AGE 91 Diabetes MOTHER AT AGE 95 NATURAL CAUSES Social History Smoking and tobacco status: never smoked Alcohol intake: never Household members: spouse Marital status: Current occupational status: retired History of recent travel: No Course Vital Signs: Vital signs: Vital Signs Temperature 98.3 F 08/28/22 19:54 Pulse Rate 83 08/28/22 19:54 Respiratory Rate 19 H 08/28/22 19:54 Blood Pressure 183/84 08/28/22 19:54 Pulse Oximetry 95 08/28/22 19:54 Oxygen Delivery Me thod 08/28/22 19:54 MDM - Fall Medical Decision Making Differentials include closed head injury, concussion, hematoma, intracranial injury While patient is here she started complaining of general body pain and soreness from the fall. She requested a dose of pain medication to help with that [address] head without contrast shows no acute findings. We will discharge patient home. Advised her of CT results. Recommend conservative treatment at home and close monitoring. Follow-up with primary care provider. Return to the ER for any new or worsening symptoms. Chart reviewed and patient discussed with midlevel. Agree with assessment and plan. Lab Data Radiology Impressions Head CT 08/28/22 22:09 IMPRESSION: 1. No acute findings. 2. Mild cerebral small-vessel disease. 3. Age-related involutional changes of the brain. 4. Remote right thalamic and internal capsule lacunar infarct, unchanged from comparison. 5. Remote right occipital lobe infarct, stable. Discharge Plan Discharge Patient Disposition: Home Clinical Impression: Mild closed head injury Condition: Stable Prescriptions: No Action amlodipine 5 mg tablet 2.5 mg PO DAILY acetaminophen [Tylenol] 325 mg tablet 325 mg PO QID PRN cholecalciferol (vitamin D3) 10 mcg (400 unit) capsule 10 mcg PO DAILY levothyroxine [Synthroid] 50 mcg tablet 50 mcg PO DAILY ezetimibe 10 mg tablet 10 mg PO DAILY Vitamin B-12 1,000 mcg tablet extended release 1,000 mcg PO DAILY aspirin 81 mg Tablet,Delayed Release (Dr/Ec) 81 mg PO DAILY Zoloft 25 mg Tablet 25 mg PO DAILY Systane Complete 0.6 % Drops 1 drp OPHTHALMIC (EYE) TID PRN (Reason: unknown) Rx Instructions: pt states sometimes she only uses bid baclofen 5 mg Tablet 5 mg PO DAILY hydrochlorothiazide 12.5 mg tablet 12.5 mg PO DAILY PRN (Reason: fluid build up) Qty: 14 0RF Discharge Orders: Discharge ED (Routine); Ordered 08/28/22 Ordered By: Indira De La Garza Referrals: Dior De La Garza FNP [Primary Care Provider] - Discharge Diet: Usual diet Discharge Activity: Increase activity as tolerated Patient Instructions: Head Injury (ED) Activity Restrictions/Additional Instructions: Your CT scan today did not show any acute changes. I recommend conservative m anagement at home including rest. Follow-up with primary care provider as needed. Return to the ER for any new or worsening symptoms. Coding Level of Care Code ED Mailroom Associate for Uche Burnett
[2022-08-28] MEDS: HYDROcodone-acetaminophen 5-325 mg Tablet 1 TAB PO (23:05)
== END 2022-08-28 23:41 | disposition home or self-care (01) ==
PROVIDERS: Emergency Provider Nurse Practitioner Family; PCP Nurse Practitioner Family
DX: S09.8XXA Other specified injuries of head, initial encounter (principal); Z79.82 Long term (current) use of aspirin; I10 Essential (primary) hypertension; E78.5 Hyperlipidemia, unspecified; Z86.73 Personal history of transient ischemic attack (TIA), and cerebral infarction without residual deficits; W18.30XA Fall on same level, unspecified, initial encounter
CPT/HCPCS: 70450; 99284

== ENCOUNTER → 2022-09-13 15:55 | Outpatient (BNVA) | payer MEDICARE, OTHER, SELFPAY | PROVIDERS: PCP Nurse Practitioner Family; Visit Provider Podiatrist Foot & Ankle Surgery | DX: E11.8 Type 2 diabetes mellitus with unspecified complications (principal); I73.9 Peripheral vascular disease, unspecified; L60.3 Nail dystrophy; Z86.73 Personal history of transient ischemic attack (TIA), and cerebral infarction without residual deficits | CPT/HCPCS: 11721 ==

== ENCOUNTER 2022-12-10 09:57 | Emergency (ER) | payer MEDICARE, OTHER, SELFPAY ==
[2022-12-10 10:10] VITALS: BP 155/74; PULSE 76; RESP 16; TEMP 36.5; O2SAT 96; BMI 24.7
--- NOTE | 2022-12-10 10:36 | XRR_ITS ---
PROCEDURE INFORMATION: Exam: XR Left Wrist Exam date and time: 12/10/2022 10:47 AM Age: 87 years old Clinical indication: Pain; Wrist; Left; Additional info: Trauma TECHNIQUE: Imaging protocol: Radiologic exam of the left wrist. Views: 1 or 2 views. COMPARISON: CR XR wrist LT min 3V* [id number] 08/12/2018 12:00 PM FINDINGS: Bones/joints: The carpal bones maintain normal alignment. No dislocation identified. No abnormality at the radiocarpal or ulnocarpal joints. No fracture identified. Soft tissues: Unremarkable. XR/XR wrist LT w scaphoid [id number] IMPRESSION: No evidence of fracture or dislocation.
--- NOTE | 2022-12-10 10:36 | XRR_ITS ---
PROCEDURE INFORMATION: Exam: XR Cervical Spine Exam date and time: 12/10/2022 10:47 AM Age: 87 years old Clinical indication: Neck pain; Prior surgery; Surgery date: 6+ months; Surgery type: Thyroid; Additional info: Trauma TECHNIQUE: Imaging protocol: Radiologic exam of the cervical spine. Views: 2 or 3 views. COMPARISON: CT angio headneck* [id number] 03/29/2020 3:05 AM FINDINGS: Bones/joints: The cervical spine maintains a normal lordotic curvature. No spondylolisthesis identified. C1 and C2 maintain normal alignment. The base of the odontoid is unremarkable. The C2 through C6 vertebral bodies maintain normal height; limited evaluation of C7 on the lateral view. The intervertebral discs maintain normal height. Multilevel facet arthropathy. Soft tissues: Calcifications in the neck likely related atherosclerotic disease. XR/XR cervical spine 3V* [id number] IMPRESSION: 1. No vertebral body height loss or traumatic malalignment identified within the limitations of this exam. 2. Mild multilevel degenerative changes identified.
--- NOTE | 2022-12-10 10:36 | XRR_ITS ---
PROCEDURE INFORMATION: Exam: XR Left Ribs with PA Chest Exam date and time: 12/10/2022 10:47 AM Age: 87 years old Clinical indication: Injury or trauma; Fall; Rib area, left side; Blunt trauma TECHNIQUE: Imaging protocol: Radiologic exam of the left ribs with PA chest. Views: 3 views COMPARISON: CR XR chest 1V portable [id number] 03/29/2020 2:51 AM FINDINGS: Lungs: Emphysematous changes noted. Pleural spaces: No pneumothorax. No pleural effusion. Heart/Mediastinum: The cardiomediastinal silhouette is within normal limits. Bones/joints: No displaced left-sided rib fractures identified. XR/XR ribs LT mn 3V w CXR1V [id number] IMPRESSION: No displaced left-sided rib fractures identified.
--- NOTE | 2022-12-10 10:37 | CT_ITS ---
WS: [id number] CT HEAD TECHNIQUE: Noncontrast CT of the head obtained from the skullbase to the vertex. CLINICAL INFORMATION: Closed head injury COMPARISON: CT August 28, 2022 DLP: 993.[address] scans at [facility] use at least one of these dose optimization techniques: automated e xposure control; mA and/or kV adjustment per patient size (includes targeted exams where dose is matc hed to clinical indication); or iterative reconstruction. FINDINGS: No evidence of intracranial hemorrhage or mass effect. Ventricular system and basal cisterns are poe nt. Moderate small vessel changes with moderate parenchymal volume loss. Chronic RIGHT occipital infa rct. Chronic lacunar infarcts described below. No extra-axial fluid collections. No evidence of mass or mass effect. Paranasal sinuses and mastoid air cells are well aerated. .Normal visualized soft tissues. CT/CT head wo con* [id number] IMPRESSION: 1. No evidence of intracranial hemorrhage or mass effect. 2. Moderate small vessel changes with moderate parenchymal volume loss. 3. 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 This is unchanged. 4. Chronic lacunar infarcts in the RIGHT dailey radiata. 5. Vascular calcification. 6. No acute intracranial findings.
--- NOTE | 2022-12-10 10:50 | PC.NURSE ---
PT STATES SHE HAS A HX OF STROKE. PT STATES SHE HAS SOME LEFT SIDED WEAKNESS. PT STATES YESTERDAY AFTERNOON SHE SLID OFF OF HER BEDSIDE STOOL AND HIT HER HEAD ON THE CLOSET . PT DID NOT SPECIFY PART OF CLOSET.
--- NOTE | 2022-12-10 11:44 | ED_ITS ---
HPI - Fall General: Chief Complaint: Fall Stated Complaint: fall Time Seen by Provider: 12/10/22 10:12 Source: patient Mode of arrival: wheelchair History of Present Illness: 87-year-old female presents emergency room she previous had a stroke a left- sided weakness has difficulty with walking can walk a few feet at home but otherwise uses a walker yesterday she slipped and fell in her home hit her head she complaining of left wrist pain and left rib pain. MD complaint: fall Onset (ago): minute(s) Fall from: standing Fall witnessed: yes, by family Place fall occurred: home Loss of consciousness: None Associated symptoms-after fall: Denies abdominal pain, chest pain, confusion, difficulty walking, headache(s), hematuria, lightheadedness, neck pain, numbness, short of breath, vertigo or weakness Review of Systems Const: Denies: fever(s), chills, body aches, change in appetite, fatigue or malaise Card: Denies: chest pain or lightheadedness Resp: Denies: dyspnea, productive cough or non-productive cough GI: Denies: abdominal pain, nausea or vomiting : Denies: dysuria, urinary frequency, urinary urgency or hematuria Musc: Denies: neck pain or back pain Skin/Breast: Denies: rash or pruritus Neuro: Denies: headache(s), difficulty walking, vertigo or confusion PFSH ED PFSH: Medical History Acute cystitis with hematuria Basal cell carcinoma of right forehead Female bladder prolapse History of colon cancer HTN (hypertension) Hyperlipidemia Hypothyroidism 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 Tendonitis Urgency incontinence Urinary frequency Surgical History History of back surgery History of colon surgery RECONNECTED COLON Hx of bilateral cataract extraction Hx of hemorrhoidectomy Hx of hysterectomy Hx of partial thyroidectomy Family History Father , AT AGE 91 Diabetes MOTHER AT AGE 95 NATURAL CAUSES Social History Smoking and tobacco status: never smoked Alcohol intake: never Household members: spouse Marital status: Current occupational status: retired Physical Exam Const: GENERAL APPEARANCE: cooperative and comfortable ORIENTATION/CONSCIOUSNESS: Yes awake, Yes oriented to person, Yes oriented to place and Yes oriented to time HENMT: COMMON NORMALS: normocephalic, atraumatic and hearing grossly normal bilaterally HEAD & SCALP: normocephalic and atraumatic Resp: COMMON NORMALS: normal respiratory effort, No retractions, No use of accessory muscles and clear to auscultation bilaterally AUSCULTATION: clear to auscultation bilaterally Cardio: COMMON NORMALS: regular rate, regular rhythm and No murmurs present (Cardio) RATE: regular rate RHYTHM: regular rhythm GI: COMMON NORMALS: Soft to palpation and No hepatosplenomegaly present AUSCULTATION: Yes normoactive bowel sounds PALPATION: Yes Soft to palpation, No Tenderness to palpation present (GI), No Guarding due to palpation present (GI) and Yes No hepatosplenomegaly present Extremity: COMMON NORMALS: normal to inspection, capillary refill normal, no clubbing, cyanosis or edema, no calf tenderness and no pedal edema Neuro: SENSORIUM/ORIENTATION: Yes oriented to person, Yes oriented to place and Yes oriented to time Skin: COMMON NORMALS: no rashes or lesions noted GENERAL SKIN EXAM: no rashes or lesions noted Course Vital Signs: Vital signs: Vital Signs Temperature 97.7 F 12/10/22 10:10 Pulse Rate 69 12/10/22 11:59 Respiratory Rate 19 H 12/10/22 11:59 Blood Pressure 151/77 12/10/22 11:59 Pulse Oximetry 94 12/10/22 11:59 Oxygen Delivery Me thod Room Air 12/10/22 10:10 MDM - Fall Medical Decision Making Labs reviewed. No acute fracture CT head negative. Reviewed findings with the patient discharge home use Tylenol for pain follow-up as needed encouraged to use her walker whenever up and ambulating Medical Records I reviewed the patient's medical records. Lab Data I reviewed the patient's lab results. Radiology Impressions Cervical Spine X-Ray 12/10/22 10:36 IMPRESSION: 1. No vertebral body height loss or traumatic malalignment identified within the limitations of this exam. 2. Mild multilevel degenerative changes identified. Ribs X-Ray 12/10/22 10:36 IMPRESSION: No displaced left-sided rib fractures identified. Wrist X-Ray 12/10/22 10:36 IMPRESSION: No evidence of fracture or dislocation. Head CT 12/10/22 10:37 IMPRESSION: 1. No evidence of intracranial hemorrhage or mass effect. 2. Moderate small vessel changes with moderate parenchymal volume loss. 3. Chronic infarct RIGHT parasagittal parietal and occipital lobes with encephalomalacia. This is unchanged. 4. Chronic lacunar infarcts in the RIGHT dailey radiata. 5. Vascular calcification. 6. No acute intracranial findings. Discharge Plan Discharge Patient Disposition: Home Clinical Impression: Left wrist sprain, Contusion of rib on left side, Fall Condition: Stable Prescriptions: No Action amlodipine 5 mg tablet 5 mg PO QAM levothyroxine [Synthroid] 50 mcg tablet 50 mcg PO QAM ezetimibe 10 mg tablet 10 mg PO QAM aspirin 81 mg Tablet,Delayed Release (Dr/Ec) 81 mg PO QAM sertraline [Zoloft] 25 mg Tablet 25 mg PO QAM Systane Complete 0.6 % Drops 1 drp OPHTHALMIC (EYE) BID hydrochlorothiazide 12.5 mg tablet 12.5 mg PO DAILY PRN (Reason: fluid build up) Qty: 14 0RF Vitamin B-12 1,000 mcg Tablet 1,000 mcg PO QAM Tylenol Ex Str Rapid Release 500 mg Tablet 500 mg PO BID oxybutynin chloride 5 mg tablet 5 mg PO DAILY@12 Ocuvite Tablet 1 tab PO QAM Discharge Orders: Discharge ED (Routine); Ordered 12/10/22 Ordered By: Cr Marie Referrals: Dior De La Garza FNP [Primary Care Provider] - Patient Instructions: Opioid Safety, Pain Management Activity Restrictions/Additional Instructions: You were seen after a fall CT of your head x-rays your neck left wrist and your ribs were all normal and there is no acute fractures use Tylenol or ibuprofen for pain follow-up with your primary care doctor as needed. Coding Level of Care Code ED Triple Valve Tester for Uche Burnett
[2022-12-10 11:59] VITALS: BP 151/77; PULSE 69; RESP 19; O2SAT 94
== END 2022-12-10 12:00 | disposition home or self-care (01) ==
PROVIDERS: Emergency Provider Family Medicine; PCP Nurse Practitioner Family
DX: S63.502A Unspecified sprain of left wrist, initial encounter (principal); S20.212A Contusion of left front wall of thorax, initial encounter; Z79.82 Long term (current) use of aspirin; Z85.038 Personal history of other malignant neoplasm of large intestine; I10 Essential (primary) hypertension; E78.5 Hyperlipidemia, unspecified; Z86.73 Personal history of transient ischemic attack (TIA), and cerebral infarction without residual deficits; W01.0XXA Fall on same level from slipping, tripping and stumbling without subsequent striking against object, initial encounter
CPT/HCPCS: 70450; 71101; 72040; 73110; 99284

== ENCOUNTER 2022-12-15 03:34 | Emergency (ER) | payer MEDICARE, OTHER, SELFPAY ==
[2022-12-15 03:40] VITALS: BP 162/66; PULSE 67; RESP 16; TEMP 36.9; O2SAT 94; BMI 25.6
[2022-12-15 03:52] VITALS: BP 162/66; PULSE 72; RESP 16; TEMP 36.8; O2SAT 94
--- NOTE | 2022-12-15 03:53 | XRR_ITS ---
PROCEDURE INFORMATION: Exam: XR Left Shoulder Exam date and time: 12/15/2022 4:06 AM Age: 87 years old Clinical indication: Injury or trauma; Fall; Blunt trauma (contusions or hematomas); Shoulder; Left; Additional info: Pain TECHNIQUE: Imaging protocol: Radiologic exam of the left shoulder. Views: 2 or more views. COMPARISON: CR (NECK, ) 12/10/2022 10:47 AM FINDINGS: Bones/joints: Acromioclavicular joint osseous spurring. Diffuse osseous demineralization. Negative for acute fracture. Negative for joint malalignment. Soft tissues: Normal. XR/XR shoulder LT min 2V* [id number] IMPRESSION: Negative for acute left shoulder pathology.
--- NOTE | 2022-12-15 03:53 | W.ED.EXTPRO ---
HPI - Extremity Problem General: Chief complaint: Extremity Injury, Upper Stated complaint: RIB PAIN Time Seen by Provider: 12/15/22 03:37 Source: patient and EMS Mode of arrival: EMS Limitations: no limitations History of Present Illness: 87-year-old female has had a fall on Saturday states she had landed on her left side she was seen here on Saturday had an x-ray of her neck left wrist and a CT of her head they were all normal states she been doing well but states yesterday she had done a lot of housework cleaning was lifting her left arm above her head a lot and started having pain in her left shoulder blade. States it hurts to touch along with movement if she is at rest she has no pain she rates her pain a 1 out of 10 currently Associated symptoms: Deny chest pain, fever(s) or rash Review of Systems Const: Denies: fever(s) or chills ENMT: Denies: throat pain or dental pain Card: Denies: chest pain Resp: Denies: dyspnea GI: Denies: abdominal pain, nausea, vomiting or diarrhea Musc: Reports: extremity pain; Denies: neck pain Skin/Breast: Denies: rash Neuro: Denies: headache(s) PFSH ED PFSH: Medical History Acute cystitis with hematuria Basal cell carcinoma of right forehead Female bladder prolapse History of colon cancer HTN (hypertension) Hyperlipidemia Hypothyroidism 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 Tendonitis Urgency incontinence Urinary frequency Surgical History History of back surgery History of colon surgery RECONNECTED COLON Hx of bilateral cataract extraction Hx of hemorrhoidectomy Hx of hysterectomy Hx of partial thyroidectomy Family History Father , AT AGE 91 Diabetes MOTHER AT AGE 95 NATURAL CAUSES Social History Smoking and tobacco status: never smoked Alcohol intake: never Household members: spouse Marital status: Current occupational status: retired Physical Exam Const: COMMON NORMALS: no acute distress and patient oriented x3 HENMT: COMMON NORMALS: normocephalic and atraumatic HEAD & SCALP: normocephalic and atraumatic Eye: COMMON NORMALS: conjunctivae normal CONJUNCTIVA: Yes conjunctivae normal Neck/C-Spine: COMMON NORMALS: full ROM and supple CERVICAL SPINE: Yes cervical ROM normal and No Cervical spine tenderness Chest: COMMONS NORMALS: normal inspection of the chest Resp: COMMON NORMALS: normal respiratory effort Cardio: COMMON NORMALS: regular rate and regular rhythm RATE: regular rate RHYTHM: regular rhythm GI: INSPECTION: Yes normal to inspection Back/Pelvis: OTHER: Tenderness over left rhomboid muscle no tenderness over her scapula no midline spine tenderness over thoracic spine Extremity: COMMON NORMALS: normal to inspection and full ROM OTHER: Full range of motion of her left arm no tenderness in the wrist or elbow or shoulder she does have some pain in her rhomboid when she moves her arm Neuro: COMMON NORMALS: patient oriented x3 Psych: COMMON NORMALS: mental status grossly normal Skin: COMMON NORMALS: no rashes or lesions noted GENERAL SKIN EXAM: no rashes or lesions noted Course Vital Signs: Vital signs: Vital Signs Temperature 98.2 F 12/15/22 03:52 Pulse Rate 72 12/15/22 03:52 Respiratory Rate 16 12/15/22 03:52 Blood Pressure 162/66 12/15/22 03:52 Pulse Oximetry 94 12/15/22 03:52 Oxygen Delivery Me thod Room Air 12/15/22 03:52 MDM - Extremity (Nontraumatic) Medical Decision Making Patient presents here with left shoulder pain over her rhomboid muscle she is point tender over that muscle no bony tenderness x-ray of her shoulder is normal she had imaging on Saturday that was normal as well likely due to overuse yesterday she is to ice take it easy we will place her on Naprosyn and Robaxin she is to follow-up with PCP and return if worsening. Medical Records I reviewed the patient's medical records. Imaging Data xr l shoulder: I personally reviewed and interpreted this imaging study as follows: My impression: no acute abnormality Discharge Plan Discharge Patient Disposition: Home Clinical Impression: Left shoulder pain Condition: Stable Prescriptions: New methocarbamol 750 mg tablet 750 mg PO Q6H PRN (Reason: spasms) Qty: 20 0RF Naprosyn 500 mg tablet 500 mg PO BID PRN (Reason: pain) Qty: 20 0RF No Action amlodipine 5 mg tablet 5 mg PO QAM levothyroxine [Synthroid] 50 mcg tablet 50 mcg PO QAM ezetimibe 10 mg tablet 10 mg PO QAM aspirin 81 mg Tablet,Delayed Release (Dr/Ec) 81 mg PO QAM sertraline [Zoloft] 25 mg Tablet 25 mg PO QAM Systane Complete 0.6 % Drops 1 drp OPHTHALMIC (EYE) BID hydrochlorothiazide 12.5 mg tablet 12.5 mg PO DAILY PRN (Reason: fluid build up) Qty: 14 0RF Vitamin B-12 1,000 mcg Tablet 1,000 mcg PO QAM Tylenol Ex Str Rapid Release 500 mg Tablet 500 mg PO BID oxybutynin chloride 5 mg tablet 5 mg PO DAILY@12 Ocuvite Tablet 1 tab PO QAM Discharge Orders: Discharge ED (Routine); Ordered 12/15/22 Ordered By: Inez Reece Referrals: Dior De La Garza FNP [Primary Care Provider] - 1-3 days Discharge Diet: Advance as tolerated Discharge Activity: Resume usual activity Patient Instructions: Shoulder Pain (ED) Coding Level of Care Code ED Grain Elevator Clerk for Uche Burnett
[2022-12-15] MEDS: ketorolac 30 mg/mL INJ 10 MG IVP (04:02)
[2022-12-15 04:41] VITALS: BP 153/93; PULSE 76; RESP 16; O2SAT 94
== END 2022-12-15 04:34 | disposition home or self-care (01) ==
PROVIDERS: Emergency Provider Emergency Medicine; PCP Nurse Practitioner Family
DX: M25.512 Pain in left shoulder (principal); Z85.038 Personal history of other malignant neoplasm of large intestine; I10 Essential (primary) hypertension; E78.5 Hyperlipidemia, unspecified
CPT/HCPCS: 73030; 96374; 99284; J1885

== ENCOUNTER 2023-02-03 04:43 | Emergency (ER) | payer MEDICARE, OTHER, SELFPAY ==
[2023-02-03 04:57] VITALS: BP 141/78; PULSE 94; RESP 18; TEMP 36.6; O2SAT 96; BMI 25.2
[2023-02-03 05:00] VITALS: BP 141/72; PULSE 82; RESP 18; O2SAT 93
--- NOTE | 2023-02-03 05:09 | XRR_ITS ---
PROCEDURE INFORMATION: Exam: XR Sacrum and Coccyx, 2 or More Views Exam date and time: 02/03/2023 5:19 AM Age: 87 years old Clinical indication: Injury or trauma; Blunt trauma (contusions or hematomas); Prior surgery; Surgery date: 6+ months; Surgery type: Lumbar fusion. Pelvic; Patient HX: Fall at home. C/O sacral/coccygeal pain. Bruising to sacral region. ; Additional info: Fall left posterior hip pain TECHNIQUE: Imaging protocol: XR of the sacrum and coccyx, 2 or more views. COMPARISON: CR XR hip LT 2-3V wo/w pel* [id number] 02/03/2023 5:15 AM FINDINGS: Bones/joints: Mild sclerosis of the left sacroiliac joint. No evidence of fracture or dislocation Soft tissues: Normal. XR/XR sacrum coccyx min 2V [id number] IMPRESSION: Mild sclerosis of the left sacroiliac joint. No evidence of fracture or dislocation
--- NOTE | 2023-02-03 05:09 | XRR_ITS ---
PROCEDURE INFORMATION: Exam: XR Left Hip Exam date and time: 02/03/2023 5:15 AM Age: 87 years old Clinical indication: Injury or trauma; Blunt trauma (contusions or hematomas); Prior surgery; Surgery date: 6+ months; Surgery type: Lumbar fusion; Patient HX: Fall at home. C/O left hip pain. ; Additional info: Fall posterior hip pain TECHNIQUE: Imaging protocol: Radiologic exam of the left hip. Views: 2 or 3 views hip with pelvis when performed. COMPARISON: CT abdomen pelvis w con* [id number] 07/22/2021 4:19 AM FINDINGS: Bones/joints: Osteopenia. No evidence of fracture or dislocation Soft tissues: Unremarkable. XR/XR hip LT 2-3V wo/w pel* [id number] IMPRESSION: Osteopenia. No evidence of fracture or dislocation
--- NOTE | 2023-02-03 05:10 | ED_ITS ---
HPI - Fall General: Chief Complaint: Fall Stated Complaint: fall Time Seen by Provider: 02/03/23 04:59 Source: patient and family History of Present Illness: 87-year-old female who fell last night at home in the bathroom brushing her teeth. She says that her feet get tangled together, and she fell backwards in the floor. She did not hit her head. She struck her posterior left hip on the floor. She has a bruise. She is having pain in the area. No radicular pain. No loss of sensation. MD complaint: fall Onset (ago): hour(s) Fall from: standing Fall witnessed: no Place fall occurred: home Loss of consciousness: None Prolonged down time: no Symptoms prior to fall: none Context: tripped/slipped Location of injury: buttocks Severity: moderate Associated symptoms-after fall: Denies abdominal pain, chest pain, confusion, headache(s), neck pain, short of breath, vertigo or weakness Review of Systems Const: Denies: fever(s) ENMT: Denies: throat pain Card: Denies: chest pain Resp: Denies: dyspnea, productive cough or non-productive cough GI: Denies: abdominal pain : Denies: flank pain Musc: Denies: neck pain Neuro: Reports: 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); Denies: headache(s), numbness in extremities, vertigo or confusion PFS ED PFSH: Medical History Acute cystitis with hematuria Basal cell carcinoma of right forehead Female bladder prolapse History of colon cancer HTN (hypertension) Hyperlipidemia Hypothyroidism 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 Tendonitis Urgency incontinence Urinary frequency Surgical History History of back surgery History of colon surgery RECONNECTED COLON Hx of bilateral cataract extraction Hx of hemorrhoidectomy Hx of hysterectomy Hx of partial thyroidectomy Family History Father , AT AGE 91 Diabetes MOTHER AT AGE 95 NATURAL CAUSES Social History Smoking and tobacco status: never smoked Alcohol intake: never Household members: spouse Marital status: Current occupational status: retired Physical Exam Const: COMMON NORMALS: no acute distress GENERAL APPEARANCE: frail appearing; not ill appearing HENMT: COMMON NORMALS: normocephalic and atraumatic HEAD & SCALP: normocephalic and atraumatic FACE & SINUS: normal facial exam Neck/C-Spine: GENERAL: Yes trachea midline Chest: CHEST: Yes Symmetrical chest wall rise Resp: COMMON NORMALS: normal respiratory effort, No use of accessory muscles and clear to auscultation bilaterally AUSCULTATION: clear to auscultation bilaterally Cardio: COMMON NORMALS: regular rate and regular rhythm RATE: regular rate RHYTHM: regular rhythm GI: COMMON NORMALS: Normal to inspection, nondistended, normoactive bowel sounds present, Soft to palpation and non-tender PALPATION: Yes Soft to palpation : COMMON NORMALS: Yes no CVA tenderness BLADDER/KIDNEY EXAM: Yes no CVA tenderness Back/Pelvis: COMMON NORMALS: no CVA tenderness OTHER: Ecchymosis to posterior left hip/buttocks. No lumbar spine tenderness. Minimal tenderness over ecchymotic site. No deformity. Movement of the hip does not seem to cause significant pain. Course Vital Signs: Vital signs: Vital Signs Temperature 98 F 02/03/23 07:20 Pulse Rate 82 02/03/23 07:20 Respiratory Rate 18 02/03/23 07:20 Blood Pressure 141/72 02/03/23 07:20 Pulse Oximetry 93 02/03/23 07:20 Oxygen Delivery Me thod Room Air 02/03/23 05:00 MDM - Fall Medical Decision Making X-rays of the hip and sacrum/coccyx are negative for fracture. She does have a large contusion of the left posterior hip. Evidently, her urine was pungent on urination here, so urine has been sent to the lab. Lab Data Radiology Impressions Hip/Pelvis X-Ray 02/03/23 05:09 IMPRESSION: Osteopenia. No evidence of fracture or dislocation Sacrum and Coccyx X-Ray 02/03/23 05:09 IMPRESSION: Mild sclerosis of the left sacroiliac joint. No evidence of fracture or dislocation Laboratory Results Urine Color Yellow (Yellow) 02/03/23 06:15 Urine Appearance Cloudy (CLEAR) A 02/03/23 06:15 Urine pH 6 (5-7) 02/03/23 06:15 Ur Specific [place] 1.015 (1.005-1.030) 02/03/23 06:15 Urine Protein 3+ (Negative) H 02/03/23 06:15 Urine Glucose (UA) Norm (Normal) 02/03/23 06:15 Urine Ketones Negative (Negative) 02/03/23 06:15 Urine Blood 2+ (Negative) H 02/03/23 06:15 Urine Nitrate Negative (Negative) 02/03/23 06:15 Urine Bilirubin Neg (Negative) 02/03/23 06:15 Urine Urobilinogen Norm mg/dL (Negative) 02/03/23 06:15 Ur Leukocyte Esterase 2+ (Negative) H 02/03/23 06:15 Urine RBC 40-50 /hpf (0-2) H 02/03/23 06:15 Urine WBC Too numerous to cnt /hpf (0-5) H 02/03/23 06:15 Ur Squamous Epith Cells 0-4 /hpf (0-5) H 02/03/23 06:15 Ur Transition Epith Cell 0-4 /hpf 02/03/23 06:15 Amorphous Sediment Not Reportable 02/03/23 06:15 Urine Bacteria 4+ /hpf (NONE) H 02/03/23 06:15 Urine Mucus 1+ /hpf 02/03/23 06:15 Discharge Plan Discharge Patient Disposition: Home Clinical Impression: Contusion of hip, left Urinary tract infection Qualifiers: Urinary tract infection type: acute cystitis Hematuria presence: with hematuria Qualified Code(s): N30.01 - Acute cystitis with hematuria Condition: Stable Prescriptions: New hydrocodone-acetaminophen 5-325 mg tablet 1 tab PO Q8H PRN (Reason: pain) Qty: 7 0RF ciprofloxacin HCl 500 mg tablet 500 mg PO Q12H Qty: 20 0RF No Action amlodipine 5 mg tablet 5 mg PO QAM levothyroxine [Synthroid] 50 mcg tablet 50 mcg PO QAM ezetimibe 10 mg tablet 10 mg PO QAM aspirin 81 mg Tablet,Delayed Release (Dr/Ec) 81 mg PO QAM sertraline [Zoloft] 25 mg Tablet 25 mg PO QAM Systane Complete 0.6 % Drops 1 drp OPHTHALMIC (EYE) BID hydrochlorothiazide 12.5 mg tablet 12.5 mg PO DAILY PRN (Reason: fluid build up) Qty: 14 0RF Vitamin B-12 1,000 mcg Tablet 1,000 mcg PO QAM Tylenol Ex Str Rapid Release 500 mg Tablet 500 mg PO BID oxybutynin chloride 5 mg tablet 5 mg PO DAILY@12 Ocuvite Tablet 1 tab PO QAM methocarbamol 750 mg tablet 750 mg PO Q6H PRN (Reason: spasms) Qty: 20 0RF Naprosyn 500 mg tablet 500 mg PO BID PRN (Reason: pain) Qty: 20 0RF Discharge Orders: Discharge ED (Routine); Ordered 02/03/23 Ordered By: Fausto Tristan Referrals: De La Garza,Dior, ENGINE MAINTENANCE MECHANIC [Primary Care Provider] - 1-3 days Patient Instructions: Hip Contusion (ED), Opioid Safety, Pain Management, Urinary Tract Infection - Women Activity Restrictions/Additional Instructions: Ice may help with pain. Use pain medication sparingly for significant pain. Follow-up with your doctor. Return for any concerning symptoms. Coding Level of Care Code ED Geophysical Party Chief for Uche Burnett
[2023-02-03] MEDS: oxyCODONE-APAP 5-325 mg Tablet 1 TAB PO (06:36)
[2023-02-03 06:48] LABS: Blood Urine 2+ (Negative); Glucose Urine UA Norm (Normal); Ketones Urine Negative (Negative); Protein Urine 3+ (Negative); Specific Gravity, Urine 1.015 (1.005-1.030); Urine Appearance Cloudy (CLEAR); Urine Color Yellow (Yellow); pH Urine 6 (5-7)
[2023-02-03 06:49] LABS: Add Urine Microscopic? YES; Bilirubin Urine Neg (Negative); Leukocyte Esterase Urine 2+ (Negative); Nitrate Urine Negative (Negative); Urobilinogen Urine Norm (Negative)
[2023-02-03 06:53] LABS: Bacteria Urine 4+ /hpf; Mucus Urine 1+ /hpf; Squamous Epithelial Cell Urine 0-4 /hpf (0-5); Transitional Epi Cells Urine 0-4 /hpf; WBC Urine TOO NUMEROUS TO CNT /hpf (0-5)
[2023-02-03 06:54] LABS: RBC Urine 40-50 /hpf (0-2)
[2023-02-03 06:56] LABS: Add Urine Culture? Yes
[2023-02-03 07:20] VITALS: BP 141/72; PULSE 82; RESP 18; TEMP 36.6; O2SAT 93
== END 2023-02-03 07:22 | disposition home or self-care (01) ==
PROVIDERS: Emergency Provider Emergency Medicine; PCP Nurse Practitioner Family
DX: S70.02XA Contusion of left hip, initial encounter (principal); N30.01 Acute cystitis with hematuria; Z79.82 Long term (current) use of aspirin; Z87.440 Personal history of urinary (tract) infections; Z85.038 Personal history of other malignant neoplasm of large intestine; I10 Essential (primary) hypertension; E78.5 Hyperlipidemia, unspecified; W01.0XXA Fall on same level from slipping, tripping and stumbling without subsequent striking against object, initial encounter
CPT/HCPCS: 72220; 73502; 81001; 87077; 87086; 87186; 99284

== ENCOUNTER → 2023-02-13 13:06 | Outpatient (BNVA) | payer MEDICARE, OTHER, SELFPAY | PROVIDERS: PCP Nurse Practitioner Family; Visit Provider Podiatrist Foot & Ankle Surgery | DX: L60.8 Other nail disorders (principal); Z86.73 Personal history of transient ischemic attack (TIA), and cerebral infarction without residual deficits; I73.9 Peripheral vascular disease, unspecified; L60.3 Nail dystrophy | CPT/HCPCS: 11721 ==

== ENCOUNTER 2023-03-08 09:57 | Outpatient (CLI) | payer MEDICARE, OTHER, SELFPAY ==
--- NOTE | 2023-03-08 10:14 | MM_ITS ---
WS: [id number] Bilateral screening 3D tomosynthesis digital mammogram, 03/08/2023 Clinical Data: SCREENING Comparison: 03/05/2022, 10/25/2020, 03/18/2020, 08/20/2018, 07/25/2017, 07/13/2016, 08/12/2014, 06/25/2014, , 05/22/2013, 04/30/2012, 03/20/2011, 02/26/2010, 04/13/2009, 03/30/2008, 03/27/2007. Findings: The breast parenchymal pattern shows heterogeneous density. No spiculated masses or clustered calcifi cations are seen. There are no secondary signs of carcinoma. There is a biopsy clip in the upper oute r quadrant of the right breast. There are vascular calcifications in the right breast. Impression: 1. Negative bilateral mammogram unchanged. 2. Recommend annual screening mammograms. MM/[place] [id number] BIRADS: 1-Negative FOLLOW UP: 1 Year Follow-up The CAD toolroom checker was used.
== END 2023-03-08 09:58 | disposition home or self-care (01) ==
LOC: RAD 09:59 → MOBLMAM 10:09 → RAD 10:14
PROVIDERS: PCP Nurse Practitioner Family; Visit Provider Nurse Practitioner Family
DX: Z12.31 Encounter for screening mammogram for malignant neoplasm of breast (principal)
CPT/HCPCS: 77063; 77067

== ENCOUNTER → 2023-04-17 12:08 | Outpatient (BNVA) | payer MEDICARE, OTHER, SELFPAY | PROVIDERS: PCP Nurse Practitioner Family; Visit Provider Podiatrist Foot & Ankle Surgery | DX: L60.8 Other nail disorders (principal); Z86.73 Personal history of transient ischemic attack (TIA), and cerebral infarction without residual deficits; I73.9 Peripheral vascular disease, unspecified; L60.3 Nail dystrophy | CPT/HCPCS: 11721 ==

== ENCOUNTER → 2023-07-17 13:01 | Outpatient (BNVA) | payer MEDICARE, OTHER, SELFPAY | PROVIDERS: PCP Nurse Practitioner Family; Visit Provider Podiatrist Foot & Ankle Surgery | DX: L60.8 Other nail disorders (principal); Z86.73 Personal history of transient ischemic attack (TIA), and cerebral infarction without residual deficits; I73.9 Peripheral vascular disease, unspecified; L60.3 Nail dystrophy | CPT/HCPCS: 11721 ==

== ENCOUNTER → 2023-08-26 07:47 | Outpatient (BNVA) | payer MEDICARE, SELFPAY | PROVIDERS: PCP Nurse Practitioner Family; Visit Provider Nurse Practitioner Family | DX: L57.0 Actinic keratosis (principal); L57.8 Other skin changes due to chronic exposure to nonionizing radiation; D22.5 Melanocytic nevi of trunk; L81.4 Other melanin hyperpigmentation; Z85.828 Personal history of other malignant neoplasm of skin | CPT/HCPCS: 17000; 99203 ==

== ENCOUNTER → 2023-09-25 14:26 | Outpatient (BNVA) | payer MEDICARE, OTHER, SELFPAY | PROVIDERS: Visit Provider Podiatrist Foot & Ankle Surgery | DX: Z86.73 Personal history of transient ischemic attack (TIA), and cerebral infarction without residual deficits; I73.9 Peripheral vascular disease, unspecified; L60.3 Nail dystrophy | CPT/HCPCS: 11721 ==

== ENCOUNTER 2023-10-01 15:33 | Inpatient (IN) | payer MEDICARE, OTHER, SELFPAY ==
--- NOTE | 2023-09-30 13:19 | ECG_ITS ---
[facility] Test Date: 2023-09-30 Pat Name: Deanne Hankins Department: Room: Gender: Female Treasury Representative: : 1935 Requested By: Kat Mendiola Order Number: [id number] Michael MD: Colton Goldberg M.D. Measurements Intervals [place] Rate: 76 P: 55 NH: 164 QRS: -39 QRSD: 91 T: 9 QT: 341 QTc: 385 Interpretive Statements SINUS RHYTHM LEFT AXIS DEVIATION [QRS AXIS < -30] PATTERN CONSISTENT WITH PULMONARY DISEASE Compared to ECG 03/28/2020 09:29:22 No significant changes Electronically Signed On 09-30-2023 14:24:35 CDT by Colton Goldberg M.D. [email or web address]
--- NOTE | 2023-09-30 13:59 | ANES.PREANE2 ---
Pre-Anesthetic Assessment Height/Weight: Height 1.57 m Operation Date: 10/01/23 11:25 Proposed Procedures p Anterior colporrhaphy 91964, Single incision sling 34817 N81.10(Not Applicable) - Michael Cabral MD s Sling Single Incision Sling(Not Applicable) - Michael Cabral MD Familial anesthetic complications: None Social No alcohol and No tobacco Exam alert, oriented x 3, clear to auscultation bilaterally and regular rate & rhythm Airway Mallampati: Class II Dentition: other (1 missing tooth) CV/HEM Hypertension PFO Metabolic Thyroid Disease Neuropsych Cerebrovascular Accident Anesthetic Plan ASA status: 3 Anesthesia: General Risk of > 500 ml blood loss (7ml/kg in children): No Medications/Allergies Home Medications Medication Instructions Recorded Confirmed Last Taken Type ezetimibe 10 mg tablet 10 mg PO QAM 02/05/20 09/30/23 12/10/22 History levothyroxine 50 mcg tablet 50 mcg PO QAM 02/05/20 09/30/23 09/29/23 History (Synthroid) aspirin 81 mg tablet,delayed 81 mg PO QAM 03/28/20 09/30/23 09/29/23 History release propylene glycol 0.6 % eye drops 1 drp ophthalmic (eye) BID 03/28/20 09/30/23 03/27/20 History (Systane Complete) sertraline 25 mg tablet (Zoloft) 25 mg PO QAM 03/28/20 09/30/23 12/10/22 History amlodipine 5 mg tablet 5 mg PO QAM 05/08/21 09/30/23 09/29/23 History hydrochlorothiazide 12.5 mg tablet 12.5 mg PO DAILY PRN fluid build 10/19/21 09/30/23 Unknown Rx up #14 tabs acetaminophen 500 mg tablet 500 mg PO BID 12/10/22 09/30/23 12/10/22 History cyanocobalamin (vitamin B-12) 1,000 mcg PO QAM 12/10/22 09/30/23 09/29/23 History 1,000 mcg tablet (Vitamin B-12) oxybutynin chloride 5 mg tablet 5 mg PO DAILY@12 12/10/22 09/30/23 12/09/22 History vitamin A-vitamin C-vit E-min 1 tab PO QAM 12/10/22 09/30/23 Unknown History tablet naproxen 500 mg tablet (Naprosyn) 500 mg PO BID PRN pain #20 tabs 12/15/22 09/30/23 Unknown Rx hydrocodone 5 mg-acetaminophen 325 1 tab PO Q8H PRN pain #7 tabs 02/03/23 09/30/23 Unknown Rx mg tablet nitrofurantoin 100 mg PO Q12H 7 days #14 caps 09/23/23 09/30/23 Unknown Rx monohydrate/macrocrystals 100 mg capsule Allergies Allergy/AdvReac Type Severity Reaction Status Date / Time cephalexin [From Keflex] Allergy Unknown ADR-Diarrhe Verified 09/25/23 14:30 a chlorthalidone Allergy Unknown Unknown Verified 09/25/23 14:30 clindamycin Allergy Unknown Unknown Verified 09/25/23 14:30 lisinopril Allergy Unknown Unknown Verified 09/25/23 14:30 Iajieln-ROR-NzD Reductase Allergy Unknown Verified 09/25/23 14:30 Inhibitor [Pwkyxky-Vzn-Gfa Reductase Inhibitor] Sulfa (Sulfonamide Allergy ALGY-Rash Verified 09/30/23 13:24 Antibiotics) gemfibrozil [From Lopid] AdvReac Unknown ADR-Diarrhe Verified 09/25/23 14:30 a guaifenesin [From Mucinex] AdvReac Unknown ADR-Diarrhe Verified 09/25/23 14:30 a cefuroxime [From Ceftin] AdvReac ADR-Diarrhe Verified 09/25/23 14:30 a PFS Anesthesia Medical History Urinary frequency Urgency incontinence Female bladder prolapse 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 Acute cystitis with hematuria Basal cell carcinoma of right forehead History of colon cancer Hyperlipidemia Hypothyroidism HTN (hypertension) Tendonitis Surgical History History of colon surgery RECONNECTED COLON History of back surgery Hx of bilateral cataract extraction Hx of hemorrhoidectomy Hx of hysterectomy Hx of partial thyroidectomy Family History Father , AT AGE 91 Diabetes MOTHER AT AGE 95 NATURAL CAUSES Grandmother Breast cancer Social History Smoking and tobacco/nicotine status: never used tobacco/nicotine Alcohol intake: never Household members: spouse Marital status: Current occupational status: retired Data Anesthesia Cardiac Studies: No Data to Display
[2023-10-01] VITALS (16 sets, daily range): BP systolic 101–189; BP diastolic 53–78; PULSE 73–89; RESP 14–20; TEMP 36.7–37.5; O2SAT 92–99; BMI 24.5
[2023-10-01] MEDS: sodium chloride 0.9% 1,000 ML 30 ML IV (10:21)
[2023-10-01] MEDS: scopolamine 1.5 Patch 1 PATCH TRANSDERMA (10:31)
[2023-10-01] MEDS: enoxaparin 40 mg/0.4 mL Syringe SUBCUT (10:31)
--- NOTE | 2023-10-01 10:53 | P.ANESUD_ITS ---
Pre-Anesthetic Update Pre-Anesthetic Assessment: Date of Surgery/Procedure: 10/01/23 Preop Jael gnosis: CYstocele stage 3 Proposed Procedure: Operation Date: 10/01/23 11:25 Proposed Procedures p Anterior colporrhaphy 55863, Single incision sling 37358 N81.10(Not Applicable) - Michael Cabral MD s Sling Single Incision Sling(Not Applicable) - Michael Cabral MD Any changes to Pre-Anesthetic Assessment?: No Last Intake: Intake Last Liquid Date 09/30/23 Last Liquid Time 19:00 Last Solid Date 09/30/23 Last Solid Time 19:00 Vitals: Temperature 98.3 F 10/01/23 10:10 Temperature Source Temporal Artery S can 10/01/23 10:10 Pulse Rate 76 10/01/23 10:10 Respiratory Rate 16 10/01/23 10:10 Blood Pressure 189/78 10/01/23 10:10 Blood Pressure Karla n 115 10/01/23 10:10 Pulse Oximetry 97 10/01/23 10:10 Oxygen Delivery Me thod Room Air 10/01/23 10:10 Exam: Pre-Anes Outpt Exam: alert, oriented x 3, clear to auscultation bilaterally and regular rate & rhythm Cardiac Studies: No Data to Display
[2023-10-01 11:16] LABS: Basophils # 0.1 10^3/uL (0.0-0.1); Basophils % 0.5 %; Eosinophils # 0.4 10^3/uL (0.0-0.8); Hematocrit 42.9 % (36-47); Lymphocytes # 2.7 10^3/uL (0.8-4.8); Lymphocytes % 27.7 %; Mean Corpuscular HGB Conc 32.6 g/dL (30-55); Mean Corpuscular Hemoglobin 29.9 pg (27-33); Mean Corpuscular Volume 91.5 fl (85-98); Mean Platelet Volume 9.6 fL (7.4-10.4); Monocytes # 0.7 10^3/uL (0.2-0.9); Monocytes % 6.8 %; Neutrophils # 5.96 10^3/uL (1.8-7.7); Neutrophils % 60.3 %; Nucleated Red Blood Cells % 0 %; Platelet Count 269 10^3/cmm (157-399); Red Blood Count 4.69 10^6/uL (3.85-5.65); Red Cell Distribution Width 13.3 % (12.1-15.1); White Blood Count 9.87 10^3/uL (3.29-11.43)
[2023-10-01 11:31] LABS: Alanine Aminotransferase 15 U/L (0-33); Albumin Level 3.8 g/dL (3.5-5.2); Alkaline Phosphatase 86 U/L (35-105); Aspartate Amino Transferase 23 U/L (0-32); Blood Urea Nitrogen 19 mg/dL (8-23); Calcium 8.9 mg/dL (8.5-10.5); Carbon Dioxide 24 mmol/L (22-29); Chloride 104 mmol/L (98-107); Creatinine Clr Calc Pharmacy 33.3786; Glucose 147 mg/dL (65-115); Osmolality Calculated 293 mOsm/kg (285-295); Sodium 139 mmol/L (136-145); Total Bilirubin 0.4 mg/dL (0.15-1.2); Total Protein 6.8 g/dL (6.6-8.7)
[2023-10-01 11:36] LABS: INR 0.93 (0.8-1.2)
[2023-10-01 11:36] LABS: Bilirubin Urine Neg (Negative); Blood Urine 2+ (Negative); Glucose Urine UA Norm (Normal); Ketones Urine Negative (Negative); Nitrate Urine Negative (Negative); Protein Urine 2+ (Negative); Urine Appearance Cloudy (CLEAR); Urine Color Yellow (Yellow); pH Urine 6 (5-7)
[2023-10-01 11:37] LABS: Add Urine Microscopic? YES; Leukocyte Esterase Urine 2+ (Negative); Urobilinogen Urine Norm (Negative)
[2023-10-01 11:46] LABS: Add Urine Culture? Yes; Bacteria Urine 1+ /hpf; Mucus Urine 1+ /hpf; Squamous Epithelial Cell Urine 0-4 /hpf (0-5); Transitional Epi Cells Urine 0-4 /hpf; WBC Urine TOO NUMEROUS TO CNT /hpf (0-5)
--- NOTE | 2023-10-01 12:07 | W.PM.OPSUD ---
Surgery/Procedure H&P Update DATE OF PROCEDURE: October 01, 2023 DATE H&P PERFORMED: 09/23/23 H&P UPDATE INFORMATION: I have reviewed H&P completed within last 30 days, I have examined patient prior to procedure and No changes to prior documentation PREOP DIAGNOSIS: CYstocele stage 3 PLANNED PROCEDURE: Operation Date: 10/01/23 11:25 Proposed Procedures p Anterior colporrhaphy 25251, Single incision sling 64920 N81.10(Not Applicable) - Michael Cabral MD s Sling Single Incision Sling(Not Applicable) - Michael Cabral MD
[2023-10-01] MEDS: vancomycin 1,000 MG in sodium chloride 0.9% 250 ML 250 MG IV (12:46)
[2023-10-01] MEDS: levofloxacin-dextrose 5 % 750 MG/150 ML PREMIX 100 MG IV (13:27)
[2023-10-01] MEDS: lidocaine-epi 2% PF 1:200,000 20 mL SDV INJECTION (13:49)
--- NOTE | 2023-10-01 15:04 | P.OP_ITS ---
Operative Report Date of procedure: October 01, 2023 Pre-op diagnosis: Cystocele stage III Urinary incontinence Post-op diagnosis: same Procedure done: Anterior colporrhaphy augmented with allograft Single incision mid urethral sling. Surgeon: Michael Cabral MD Estimated blood loss (mL): 20 IV fluids (mL): 500 Urine output (mL): 325 Procedure: After obtaining informed consent, the patient was taken to the operating room and placed in the supine position, given general anesthesia, and prepped and draped in sterile fashion. The abdomen, vulva and vagina were prepped and draped in a sterile manner. A time out procedure was performed. The vaginal mucosa was then injected in the midline with 2% lidocaine with epinephrine. The vaginal mucosa was scored in the midline with the Bovie approximately 1 cm medial to the urethral meatus to 1 cm distal to the vaginal cuff. This vaginal mucosa was then undermined and then incised in the midline with the Metzenbaum scissors. The lateral aspects of the vaginal mucosa were then grasped with the Allis clamps and the vaginal mucosa was then dissected off the underlying fascia with the Metzenbaum scissors. Again, there was noted to be quite a bit of oozing at the incision, which was controlled with cautery. After adequate dissection was performed, bilaterally. An Coloplast dermis allograft was modified at time of application to fit spacea, 4 x 4 cm piece . The Coloplast allograft was placed in front of cystocele ready to be implanted facing the vagina mucosa. Suture is placed at distal end of graft and placed towards vaginal cuff. Final suture is placed on proximal portion of the graft to complete the placement overlying the bladder. Then Interrupted vertical mattress sutures of 0 Vicryl were used to elevate the cystocele superiorly. The excessive vaginal mucosa was then trimmed with the Metzenbaum scissors and the vaginal mucosa was then reapproximated in the running interlocking fashion with 2-0 Vicryl. Then the Madden catheter was removed and cystoscope was inserted. T he bladder was filled with sterile water. Complete evaluation of the bladder mucosa was performed noting no lacerations, dimpling, tears, bleeding of the mucosa or muscular layers. Both ureteral orifices were identified. Prompt excretion of urine from both ureteral orifices was noted. Cystoscope was withdrawn. The Madden catheter was replaced. Excellent hemostasis was obtained. A vaginal pack is placed overnight as postoperative support for the vaginal tissues after graft placement and closure of vaginal incisions. Sponge, lap, needle, and instrument counts were correct times three. The patient was taken to the recovery room, awake and in stable condition. The anterior vaginal mucosa beneath the midurethra was infiltrated with 2% lidocaine with epinephrine. A vertical midline incision was made beneath the midurethra, nearly 1.5 cm length. Careful submucosal dissection was performed bilaterally up to the interior portion of the inferior pubic ramus. The insertion of adductor longus tendon on the patient?s pubic ramus was identified as reference land rachel. Palpated the notch along the internal edge of ischiopubic ramus where the adductor longus tendon and the inferior pubic ramus meet. The Altis single incision sling (SIS) was selected. Then the needle of the SIS inserted aiming at the location of this notch. One of the integrated self- fixating tips place onto the needle by sliding it over the end of the needle. The needle/sling assembly was inserted toward the location of identified reference notch making sure that the flat of the handle is perpendicular to the desired path. The needle was tracked along the posterior surface of the ischiopubic ramus until the midline rachel on the mesh is approximately at the midline position under the urethra. The needle was removed and the same was repeated on the contralateral side until the appropriate sling tension under the urethra was achieved ensuring that the mesh lays flat. The needle was removed and vaginal incision was closed in a running interlocking fashion with 2-0 Vicryl.
--- NOTE | 2023-10-01 16:05 | ANE.PACU2 ---
Inpatient post-anesthesia follow up: Airway intact: Yes Vital signs: Temperature 98.0 F Pulse Rate 82 Respiratory Rate 18 Blood Pressure 118/62 Pulse Oximetry 95 Oxygen Delivery Me thod Nasal Cannula Oxygen Flow Rate 4 Fraction of Inspir ed Oxygen Hydration adequate: Yes Nausea and vomiting: No Pain level: 1 Mental status: Baseline
[2023-10-01] MEDS: ketorolac 30 mg/mL INJ IVP ×2 (16:23→21:56)
[2023-10-01] MEDS: dextrose 5%-lactated ringers 1,000 ML 125 ML IV (16:23)
[2023-10-02] MEDS: sodium chloride 0.9% 500 ML IV (02:50)
[2023-10-02] MEDS: dextrose 5%-lactated ringers 1,000 ML 125 ML IV ×2 (02:51→23:50)
[2023-10-02] MEDS: ketorolac 30 mg/mL INJ IVP ×2 (03:54→09:52)
[2023-10-02 03:56] VITALS: BP 135/61; PULSE 94; RESP 22; TEMP 36.7; O2SAT 95
[2023-10-02] MEDS: simethicone 80 mg Chew PO (03:56)
[2023-10-02] MEDS: ezetimibe 10 mg Tablet PO (06:16)
[2023-10-02] MEDS: sertraline 50 mg Tablet 25 MG PO (06:16)
[2023-10-02] MEDS: cyanocobalamin 1,000 mcg Tablet 1000 MCG PO (06:16)
[2023-10-02] MEDS: aspirin 81 mg EC Tablet PO (06:16)
--- NOTE | 2023-10-02 06:25 | PC.NURSE ---
Vaginal packing removed, patient tolerated procedure well; will continue to monitor.
[2023-10-02 06:39] LABS: Hematocrit 37.5 % (36-47); Mean Corpuscular HGB Conc 32.8 g/dL (30-55); Mean Corpuscular Hemoglobin 29.9 pg (27-33); Platelet Count 251 10^3/cmm (157-399); Red Blood Count 4.12 10^6/uL (3.85-5.65); Red Cell Distribution Width 13.1 % (12.1-15.1); White Blood Count 12.82 10^3/uL (3.29-11.43)
[2023-10-02] MEDS: levothyroxine 50 mcg Tablet PO (06:53)
[2023-10-02] MEDS: amlodipine 5 mg Tablet PO (06:53)
[2023-10-02] MEDS: nitrofurantoin SR (BID) 100 mg Capsule PO ×2 (09:52→18:29)
[2023-10-02] MEDS: docusate sodium 100 mg Capsule PO ×2 (09:52→18:30)
[2023-10-02] MEDS: acetaminophen 500 mg Tablet PO ×2 (09:52→18:29)
[2023-10-02 10:25] VITALS: BP 152/66; PULSE 96; RESP 16; TEMP 36.7; O2SAT 94
[2023-10-02] MEDS: FUROsemide 10 mg/mL SDV 4mL 40 MG IVP (13:43)
[2023-10-02] MEDS: sodium chloride 0.9% 1,000 ML 999 ML IV (13:44)
--- NOTE | 2023-10-02 14:25 | P.PN_ITS ---
Subjective 2 Subjective: Mrs. Hankins 80-year-old female, status post anterior colporrhaphy and single incision mid urethral sling postoperative day 1. disoriented Vitals/I&O/Wt Last Vital Signs Temp 98.1 F 10/02/23 10:25 Pulse 96 10/02/23 10:25 Resp 16 10/02/23 10:25 BP 152/66 10/02/23 10:25 Pulse Ox 94 10/02/23 10:25 O2 Del Method Room Air 10/02/23 10:25 O2 Flow Rate 2 10/02/23 03:56 10/01/23 10/02/23 10/02/23 22:59 06:59 14:59 Intake Total 100 / 350 1000 / 1350 2960 / 2960 Output Total 880 / 880 910 / 1790 0 / 0 Balance -780 / -530 90 / -440 2960 / 2960 Weight last 48 hrs Weight 65.317 kg Weight 60.781 kg Weight 60.781 kg Physical Exam 2 Narrative: GA: Alert and oriented ?3. HEENT: WNL. Heart: Regular rate and rhythm. Lungs: Clear to auscultation bilaterally. Abdomen: Bowel sounds present, nontender. PHOTOGRAPHY COORDINATOR: spotting bleeding. Extremities: No edema, no cyanosis, no calves pain. Urinary Catheter Management: Madden: Cath Placed During This Visit: yes, but has since been removed by the nurse Reason for Continuing Indwelling Catheter: Decision to DC Catheter Urinary Catheter Date of Insertion: 10/01/23 Date Urinary Catheter Removed: 10/02/23 Time Urinary Catheter Discontinued: 08:15 Data 10/02/23 06:15 10/01/23 10:27 Micro: Microbiology 10/01/23 13:34 Urine Culture - Preliminary Urine Catheterized 10/01/23 11:10 Urine Culture - Preliminary Urine,Clean Catch A&P Assessment and plan (1) Status post anterior colporrhaphy: Mrs. Hankins 88-year-old female is status post anterior colporrhaphy and single incision mid urethral sling postoperative day 1. Had abnormal PVR and Madden catheter was reinstated. Due to her history of stroke, dementia and advanced age. Patient cannot be discharged at this time as she will not be able to take care of her full self with Madden catheter in place until she have a normal PVR. Will be requesting case management make arrangements to transfer patient to senior living facility until the patient is fully recovered. Plan Admission. Transferred to [facility]. Attestations 2 Medical Necessity Statement*: In my professional opinion per admitting diagnosis Coding Level of Care Code Acute Code for Chg Fwd Diagnoses Status post anterior colporrhaphy Z98.890
--- NOTE | 2023-10-02 14:55 | PC.NURSE ---
Bolus not completed due to IV leaking and coming out. Pt was able to urinate shortly after lasix was given. MD aware, no bolus to be given.
[2023-10-02 16:45] VITALS: BP 100/81; PULSE 92; RESP 17; TEMP 36.6
[2023-10-02 20:00] VITALS: BP 176/77; PULSE 93; RESP 17; TEMP 36.8; O2SAT 91
[2023-10-02] MEDS: ibuprofen 800 mg tablet PO (23:51)
[2023-10-03] VITALS: BP 173/74; PULSE 85; RESP 18; TEMP 36.4; O2SAT 91
[2023-10-03 04:00] VITALS: BP 190/72; PULSE 94; RESP 18; TEMP 36.8; O2SAT 92
[2023-10-03] MEDS: sertraline 50 mg Tablet 25 MG PO (05:37)
[2023-10-03] MEDS: ezetimibe 10 mg Tablet PO (05:37)
[2023-10-03] MEDS: cyanocobalamin 1,000 mcg Tablet 1000 MCG PO (05:37)
[2023-10-03] MEDS: levothyroxine 50 mcg Tablet PO (05:37)
[2023-10-03] MEDS: amlodipine 5 mg Tablet PO (05:37)
[2023-10-03] MEDS: aspirin 81 mg EC Tablet PO (05:38)
[2023-10-03] MEDS: nitrofurantoin SR (BID) 100 mg Capsule PO ×3 (05:38→17:27)
[2023-10-03 08:04] VITALS: BP 182/81; PULSE 93; RESP 14; TEMP 36.4; O2SAT 91
[2023-10-03] MEDS: dextrose 5%-lactated ringers 1,000 ML 125 ML IV ×2 (08:42→17:27)
[2023-10-03] MEDS: docusate sodium 100 mg Capsule PO ×2 (08:44→17:27)
[2023-10-03] MEDS: gabapentin 100 mg Capsule PO (08:44)
[2023-10-03] MEDS: ibuprofen 800 mg tablet PO ×2 (08:44→17:28)
[2023-10-03] MEDS: artificial tears Op Soln 15 mL Btl 1 DROP EYE-BOTH ×2 (08:45→17:28)
[2023-10-03] MEDS: acetaminophen 500 mg Tablet PO ×2 (08:48→17:27)
[2023-10-03] MEDS: oxybutynin 5 mg Tablet PO (11:46)
[2023-10-03 13:17] VITALS: BP 171/78; PULSE 79; RESP 15; TEMP 36.6; O2SAT 92
--- NOTE | 2023-10-03 13:28 | P.PN_ITS ---
Subjective 2 Subjective: Mrs. Hankins 80-year-old female, status post anterior colporrhaphy and single incision mid urethral sling postoperative day 2. disoriented Vitals/I&O/Wt Last Vital Signs Temp 98.3 F 10/04/23 17:06 Pulse 83 10/04/23 17:06 Resp 14 10/04/23 17:06 BP 160/63 10/04/23 17:06 Pulse Ox 92 10/04/23 17:06 O2 Del Method Room Air 10/04/23 17:00 O2 Flow Rate 2 10/02/23 03:56 Physical Exam 2 Narrative: GA: Alert and oriented ?3. HEENT: WNL. Heart: Regular rate and rhythm. Lungs: Clear to auscultation bilaterally. Abdomen: Bowel sounds present, nontender, minimal tenderness, incision clean and dry, no redness, pain or edema. DIGITAL ACCOUNT MANAGER: No bleeding. Extremities: No edema, no cyanosis, no calves pain. Urinary Catheter Management: Madden: Cath Placed During This Visit: yes, but has since been removed by the nurse Reason for Continuing Indwelling Catheter: Required Immobilization for Trauma or Surgery or Anesthesia Urinary Catheter Date of Insertion: 10/02/23 Urinary Catheter Time of Insertion: 14:52 Date Urinary Catheter Removed: 10/02/23 Time Urinary Catheter Discontinued: 08:15 Data 10/02/23 06:15 10/01/23 10:27 A&P Assessment and plan (1) Status post anterior colporrhaphy: Mrs. Hankins 88-year-old female is status post anterior colporrhaphy and single incision mid urethral sling postoperative day 2. Had abnormal PVR and Madden catheter was reinstated. Due to her history of stroke, dementia and advanced age. Patient cannot be discharged at this time as she will not be able to take care of her full self with Madden catheter in place until she have a normal PVR. Will be requesting case management make arrangements to transfer patient to care home facility until the patient is fully recovered. (2) Dementia: Qualifiers: Dementia type: associated with other underlying disease Dementia severity: moderate Dementia behavioral or psychological symptom: with anxiety Qualified Code(s): F02.B4 - Dementia in other diseases classified elsewhere, moderate, with anxiety Plan Admission. Transferred to [facility]. 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
[2023-10-03] MEDS: HYDROcodone-acetaminophen 5-325 mg Tablet 1 TAB PO (15:20)
[2023-10-03 17:14] VITALS: BP 155/75; PULSE 88; RESP 16; TEMP 36.8; O2SAT 93
[2023-10-03 19:46] VITALS: BP 157/70; PULSE 84; RESP 18; TEMP 36.6; O2SAT 93
[2023-10-03] MEDS: LORazepam 2 mg/mL INJ 10 mL MDV IVP (21:35)
--- NOTE | 2023-10-03 22:11 | PC.NURSE ---
Pt noted to be becoming increasingly restless/fidgeting and agitated as well as disoriented. Pt could only tell me her name and birthday. Pt observed to be pointing at things in the room that are not there and talking to people that are not there. says this is not her baseline as she's not normally this confused. Called Dr. Cabral for input and he advised to give pt 2mg Ativan IVP once. Pt observed to be resting in bed quietly at this time.
[2023-10-04] VITALS: BP 150/75; PULSE 78; RESP 17; TEMP 36.9; O2SAT 91
[2023-10-04] MEDS: dextrose 5%-lactated ringers 1,000 ML 125 ML IV ×2 (01:33→08:24)
[2023-10-04 04:00] VITALS: BP 166/79; PULSE 77; RESP 18; TEMP 36.8; O2SAT 95
[2023-10-04] MEDS: aspirin 81 mg EC Tablet PO (05:23)
[2023-10-04] MEDS: ezetimibe 10 mg Tablet PO (05:23)
[2023-10-04] MEDS: levothyroxine 50 mcg Tablet PO (05:24)
[2023-10-04] MEDS: amlodipine 5 mg Tablet PO (05:24)
[2023-10-04] MEDS: sertraline 50 mg Tablet 25 MG PO (05:24)
[2023-10-04] MEDS: cyanocobalamin 1,000 mcg Tablet 1000 MCG PO (05:24)
[2023-10-04] MEDS: HYDROcodone-acetaminophen 5-325 mg Tablet 1 TAB PO (05:30)
[2023-10-04 08:06] VITALS: BP 169/93; PULSE 77; RESP 16; TEMP 36.8; O2SAT 95
[2023-10-04] MEDS: nitrofurantoin SR (BID) 100 mg Capsule PO (08:22)
[2023-10-04] MEDS: artificial tears Op Soln 15 mL Btl 1 DROP EYE-BOTH (08:22)
[2023-10-04] MEDS: ibuprofen 800 mg tablet PO ×2 (08:23→15:12)
[2023-10-04] MEDS: gabapentin 100 mg Capsule PO (08:23)
[2023-10-04] MEDS: docusate sodium 100 mg Capsule PO (08:23)
--- NOTE | 2023-10-04 09:40 | PC.SOCIAL ---
IMM Update Pg. 2 of IMM Updated and reviewed with patient's , who verbalized understanding. Copy provided. Initialed, dated, timed, copy placed in chart.
[2023-10-04] MEDS: oxybutynin 5 mg Tablet PO (11:26)
--- NOTE | 2023-10-04 16:34 | P.PN_ITS ---
Subjective 2 Subjective: Mrs. Hankins 80-year-old female, status post anterior colporrhaphy and single incision mid urethral sling postoperative day 2. disoriented Vitals/I&O/Wt Last Vital Signs Temp 98.3 F 10/04/23 08:06 Pulse 77 10/04/23 08:06 Resp 16 10/04/23 08:06 BP 169/93 10/04/23 08:06 Pulse Ox 95 10/04/23 08:06 O2 Del Method Room Air 10/04/23 08:06 O2 Flow Rate 2 10/02/23 03:56 10/04/23 10/04/23 10/04/23 06:59 14:59 22:59 Intake Total 1000 / 3550 1336.25 / 1336.25 Output Total 1100 / 3600 325 / 325 Balance -100 / -50 1336.25 / 1336.25 -325 / 1011.25 Weight last 48 hrs Weight 61.689 kg Weight 60.583 kg Physical Exam 2 Narrative: GA: Alert and oriented ?3. HEENT: WNL. Heart: Regular rate and rhythm. Lungs: Clear to auscultation bilaterally. Abdomen: Bowel sounds present, nontender. CNC LATHE PROGRAMMER: spotting bleeding. Extremities: No edema, no cyanosis, no calves pain. Urinary Catheter Management: Madden: Cath Placed During This Visit: yes, but has since been removed by the nurse Reason for Continuing Indwelling Catheter: Required Immobilization for Trauma or Surgery or Anesthesia Urinary Catheter Date of Insertion: 10/02/23 Urinary Catheter Time of Insertion: 14:52 Date Urinary Catheter Removed: 10/02/23 Time Urinary Catheter Discontinued: 08:15 Data 10/02/23 06:15 10/01/23 10:27 A&P Assessment and plan (1) Status post anterior colporrhaphy: Mrs. Hankins 88-year-old female is status post anterior colporrhaphy and single incision mid urethral sling postoperative day 2. Had abnormal PVR and Madden catheter was reinstated. Due to her history of stroke, dementia and advanced age. Patient cannot be discharged at this time as she will not be able to take care of her full self with Madden catheter in place until she have a normal PVR. Will be requesting case management make arrangements to transfer patient [facility] until the patient is fully recovered. (2) Dementia: Qualifiers: Dementia type: associated with other underlying disease Dementia severity: moderate Dementia behavioral or psychological symptom: with anxiety Qualified Code(s): F02.B4 - Dementia in other diseases classified elsewhere, moderate, with anxiety Plan Admission. Transferred to [facility]. 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
--- NOTE | 2023-10-04 16:36 | PM.OBGYDC ---
Discharge Providers WORD PROCESSOR Date of Admission: 10/02/23 15:00 Date of Discharge: 10/04/23 Attending Provider at Admission: Michael Cabral MD Attending Provider at Discharge: Michael Cabral MD Primary Care Provider: Michael Cabral MD Diagnoses at Discharge Discharge Diagnosis (1) Status post anterior colporrhaphy: Status: Acute Reason for Visit Reason for Visit: N81.10 Hospital Course Hospital Course Mrs. Hankins 88-year-old female with a history of cystocele, urinary incontinence, frequent urinary tract infections. Was admitted for planned anterior colporrhaphy and single incision mid urethral sling. The procedures were performed without complications. Overnight observation was significant for patient disorientation, associated with her dementia. Arrangements were attempted for her to go to a fdc facility but case management unsuccessful due to the patient's insurance. However home health care has been arranged. The patient's was counseled regarding care and was instructed to bring the patient back to the clinic in 2 weeks. Physical Exam Narrative: GA: Alert and oriented ?3. HEENT: WNL. Heart: Regular rate and rhythm. Lungs: Clear to auscultation bilaterally. Abdomen: Bowel sounds present, nontender. RECOVERY OPERATOR HELPER: spotting bleeding. Extremities: No edema, no cyanosis, no calves pain. Urinary Catheter Management: Madden: Cath Placed During This Visit: yes, but has since been removed by the nurse Reason for Continuing Indwelling Catheter: Required Immobilization for Trauma or Surgery or Anesthesia Urinary Catheter Date of Insertion: 10/02/23 Urinary Catheter Time of Insertion: 14:52 Date Urinary Catheter Removed: 10/02/23 Time Urinary Catheter Discontinued: 08:15 History History History 3 Term 2 0 Miscarriages/Ectopic 1 Living Children 2 Discharge Data Studies Completed and Pending Laboratory Results WBC 12.82 10^3/uL (3.29-11.43) H 10/02/23 06:15 RBC 4.12 10^6/uL (3.85-5.65) 10/02/23 06:15 Hgb 12.30 g/dL (11.27-16.99) 10/02/23 06:15 Hct 37.5 % (36-47) 10/02/23 06:15 MCV 91.0 fl (85-98) 10/02/23 06:15 MCH 29.9 pg (27-33) 10/02/23 06:15 MCHC 32.8 g/dL (30-55) 10/02/23 06:15 RDW 13.1 % (12.1-15.1) 10/02/23 06:15 Plt Count 251 10^3/cmm (157-399) 10/02/23 06:15 MPV 10.0 fL (7.4-10.4) 10/02/23 06:15 Neut % (Auto) 60.3 % 10/01/23 10:26 Lymph % (Auto) 27.7 % 10/01/23 10:26 King % (Auto) 6.8 % 10/01/23 10:26 Eos % (Auto) 4.0 % 10/01/23 10:26 Baso % (Auto) 0.5 % 10/01/23 10:26 Neut # (Auto) 5.96 10^3/uL (1.8-7.7) 10/01/23 10:26 Lymph # (Auto) 2.7 10^3/uL (0.8-4.8) 10/01/23 10:26 King # (Auto) 0.7 10^3/uL (0.2-0.9) 10/01/23 10:26 Eos # (Auto) 0.4 10^3/uL (0.0-0.8) 10/01/23 10:26 Baso # (Auto) 0.1 10^3/uL (0.0-0.1) 10/01/23 10:26 Nucleated RBC % (auto) 0 % 10/01/23 10:26 Nucleated RBCs # 0.0 /100WBC 10/01/23 10:26 PT 12.80 SECONDS (12.1-14.9) 10/01/23 10:28 INR 0.93 (0.8-1.2) 10/01/23 10:28 Sodium 139 mmol/L (136-145) 10/01/23 10:27 Potassium 4.0 mmol/L (3.5-5.1) 10/01/23 10:27 Chloride 104 mmol/L (98-107) 10/01/23 10:27 Carbon Dioxide 24 mmol/L (22-29) 10/01/23 10:27 Anion Gap 15.0 (5-19) 10/01/23 10: BUN 19 mg/dL (8-23) 10/01/23 10: Creatinine 1.0 mg/dL (0.5-0.9) H 10/01/23 10:27 GFR Calculation Not Reportable 10/01/23 10:27 Glucose 147 mg/dL (65-115) H 10/01/23 10:27 Calculated Osmolality 293 mOsm/kg (285-295) 10/01/23 10:27 Calcium 8.9 mg/dL (8.5-10.5) 10/01/23 10: Total Bilirubin 0.4 mg/dL (0.15-1.2) 10/01/23 10: AST 23 U/L (0-32) 10/01/23 10: ALT 15 U/L (0-33) 10/01/23 10: Alkaline Phosphatase 86 U/L (35-105) 10/01/23 10: Total Protein 6.8 g/dL (6.6-8.7) 10/01/23 10: Albumin 3.8 g/dL (3.5-5.2) 10/01/23 10: Globulin 3.0 g/dL (1.3-4.6) 10/01/23 10:27 Urine Color Yellow (Yellow) 10/01/23 11:10 Urine Appearance Cloudy (CLEAR) A 10/01/23 11:10 Urine pH 6 (5-7) 10/01/23 11:10 Ur Specific [place] 1.020 (1.005-1.030) 10/01/23 11:10 Urine Protein 2+ (Negative) H 10/01/23 11:10 Urine Glucose (UA) Norm (Normal) 10/01/23 11:10 Urine Ketones Negative (Negative) 10/01/23 11:10 Urine Blood 2+ (Negative) H 10/01/23 11:10 Urine Nitrate Negative (Negative) 10/01/23 11:10 Urine Bilirubin Neg (Negative) 10/01/23 11:10 Urine Urobilinogen Norm mg/dL (Negative) 10/01/23 11:10 Ur Leukocyte Esterase 2+ (Negative) H 10/01/23 11:10 Urine RBC 5-10 /hpf (0-2) H 10/01/23 11:10 Urine WBC Too numerous to cnt /hpf (0-5) H 10/01/23 11:10 Ur Squamous Epith Cells 0-4 /hpf (0-5) H 10/01/23 11:10 Ur Transition Epith Cell 0-4 /hpf 10/01/23 11:10 Amorphous Sediment Not Reportable 10/01/23 11:10 Urine Bacteria 1+ /hpf (NONE) H 10/01/23 11:10 Urine Mucus 1+ /hpf 10/01/23 11:10 Blood Type O Positive 10/01/23 10:26 Rho(D) Type Rh positive 10/01/23 10:26 Antibody Screen Negative 10/01/23 10:26 Vitals Last Vital Signs Temp 98.3 F 10/04/23 08:06 Pulse 77 10/04/23 08:06 Resp 16 10/04/23 08:06 BP 169/93 10/04/23 08:06 Pulse Ox 95 10/04/23 08:06 O2 Del Method Room Air 10/04/23 08:06 O2 Flow Rate 2 10/02/23 03:56 Results Labs OB ([facility]): Blood Type O Positive 10/01/23 Antibody Screen Negative 10/01/23 Hct 37.5 % (36-47) 10/02/23 Hgb 12.30 g/dL (11.27-16.99) 10/02/23 Rho(D) Type Rh positive 10/01/23 Plt Count 251 10^3/cmm (157-399) 10/02/23 Micro Urine Specimen 10/01/23 Discharge Plan Discharge Patient Disposition: Home Health Service Condition: Stable Prescriptions: New acetaminophen 325 mg capsule 325 mg PO Q4H PRN (Reason: fever or postoperative pain) Qty: 60 0RF ibuprofen 800 mg tablet 800 mg PO TID PRN (Reason: pain) Qty: 60 0RF nitrofurantoin macrocrystal 100 mg capsule 100 mg PO BID 7 Days Qty: 14 0RF Rx Instructions: must administer with a meal/food Continued amlodipine 5 mg tablet 5 mg PO QAM nitrofurantoin monohyd/m-cryst 100 mg capsule 100 mg PO Q12H 7 Days Qty: 14 0RF Rx Instructions: must administer with a meal/food levothyroxine [Synthroid] 50 mcg tablet 50 mcg PO QAM ezetimibe 10 mg tablet 10 mg PO QAM aspirin 81 mg Tablet,Delayed Release (Dr/Ec) 81 mg PO QAM sertraline [Zoloft] 25 mg Tablet 25 mg PO QAM Systane Complete 0.6 % Drops 1 drp OPHTHALMIC (EYE) BID hydrochlorothiazide 12.5 mg tablet 12.5 mg PO DAILY PRN (Reason: fluid build up) Qty: 14 0RF cyanocobalamin (vitamin B-12) [Vitamin B-12] 1,000 mcg Tablet 1,000 mcg PO QAM acetaminophen [Tylenol Ex Str Rapid Release] 500 mg Tablet 500 mg PO BID oxybutynin chloride 5 mg tablet 5 mg PO DAILY@12 Ocuvite Tablet 1 tab PO QAM naproxen [Naprosyn] 500 mg tablet 500 mg PO BID PRN (Reason: pain) Qty: 20 0RF hydrocodone-acetaminophen 5-325 mg tablet 1 tab PO Q8H PRN (Reason: pain) Qty: 7 0RF gabapentin 100 mg Capsule 100 mg PO DAILY Discharge Orders: Discharge Order (Routine); Ordered 10/04/23 Ordered By: Michael Cabral Referrals: [facility] [Other] ([facility] has accepted you for services. They will be calling you to set up a time to come to your house and admit you to their services. They will be coming out some time on 10/07/23.) Michael Cabral MD [Primary Care Provider] - 10/21/23 3:00 pm Discharge Diet: Usual diet Discharge Activity: Limit activity as instructed Patient Instructions: Bladder Sling for Women (DC), Anterior Vaginal Repair (DC), OB Discharge Report, OB Food/Drug Interaction Guide, Opioid Safety Activity Restrictions/Additional Instructions: 1. Please call [facility] on next working day to make your post-operative appointment in 2 weeks. 2. Please stay home until you come back to the clinic on first post-hospatilization check up. 3. Please follow instructions on your medications CAREFULLY. 4. If you have abdominal incision, do not cover it unless dressing is necessary because of drainage. OK to shower, but avoid bath. Leave steri-strips until they fall off. If they are still on one week after surgery, you may remove them. 5. If you had vaginal surgery or vaginal repair, Dr. Cabral may instruct you to take SITZ bath. 6. Yellow, blood tinged odorous vaginal discharge is usually normal after hysterectomy or vaginal surgeries. 7. No SEXUAL INTERCOURSE, tampons, or douches until you are completely released from the post-operative care. 8. Avoid constipation by eating right and maybe using some Metamucil or Milk of Magnesia. 9. All prescription refills are given during the working hours. Please do no wait till it runs out. Call the clinic at [phone] before your medication runs out. The clinic will get in touch with your doctor to prescribe medications if necessary. 10. Please remain within 40 mile radius from our hospital because emergencies do happen now and then during the post-operative period. 11. If you have stairs at home, take one step at a time slowly and minimize the number of trips. It helps to stay in one floor for the next few days. No lifting except what you can lift by one hand until you are released from the post-operative care. 12. Driving is discouraged until you are well healed. It may be 3-4 weeks before you feel strong enough to drive. You should be able to turn and look through the rear window without pain and you should be able to push the brake pedal very hard without pain before you drive. No fast rules, but SAFETY should be your primary concern. DO NOT drive if you are on sedating medications such as narcotics. 13. Call the clinic (during working hours) to make urgent appointment or go to the Emergency room, if any of the following occurs: i. Vaginal bleeding becomes heavy, more than a period. ii. Incision becomes red and sore, or drains pus. iii. Your TEMPERATURE is over 100.4F or you have chill. iv. IV site becomes red and swollen (a little ``knot?? is usually OK) v. Persistent nausea and vomiting vi. Persistent constipation or diarrhea vii. Rash or allergic reaction to medications. Discharge Attestations WORD PROCESSOR Time Spent in Discharge Care*: greater than 30 min Coding Level of Care Code Acute Code for Chg Fwd Diagnoses Status post anterior colporrhaphy Z98.890
[2023-10-04 17:00] VITALS: BP 160/63; PULSE 83; RESP 14; TEMP 36.8; O2SAT 92
[2023-10-04 17:06] VITALS: BP 160/63; PULSE 83; RESP 14; TEMP 36.8; O2SAT 92
== END 2023-10-04 17:09 | disposition home health service (06) | DRG 748 ==
LOC: OBGYN 15:36 → MEDSURG 10-03 08:05
PROVIDERS: Admitting Provider Obstetrics & Gynecology; PCP Obstetrics & Gynecology; Visit Provider Obstetrics & Gynecology
PROC: 0JQC0ZZ Repair Pelvic Region Subcutaneous Tissue and Fascia, Open Approach (ICD-10-PCS; CPT 57240; principal; 2023-10-01 11:15)
PROC: 0JUC0KZ Supplement of Pelvic Region Subcutaneous Tissue and Fascia with Nonautologous Tissue Substitute, Open Approach (ICD-10-PCS; CPT 57288; 2023-10-01 11:15)
DX: N81.10 Cystocele, unspecified (principal); F03.B4 Unspecified dementia, moderate, with anxiety; R32 Unspecified urinary incontinence; Z87.440 Personal history of urinary (tract) infections; E78.5 Hyperlipidemia, unspecified; E03.9 Hypothyroidism, unspecified; I10 Essential (primary) hypertension; Z86.73 Personal history of transient ischemic attack (TIA), and cerebral infarction without residual deficits; R41.0 Disorientation, unspecified
CPT/HCPCS: 36415; 51702; 51798; 80053; 81001; 85025; 85027; 85610; 86850; 86900; 87086; 93005; 97161; 97167; 97530; 97535; C1713; C1762; G0378; J1100; J1650; J1885; J1940; J1956; J2060; J2371; J2405; J2704; J2710; J3010; J3370; J3490; J7030; J7040; J7050; J7121

== ENCOUNTER 2023-10-04 20:07 | Emergency (ER) | payer MEDICARE, OTHER, SELFPAY ==
--- NOTE | 2023-10-04 20:20 | CTR_ITS ---
PROCEDURE INFORMATION: Exam: CT Head Without Contrast Exam date and time: 10/04/2023 8:44 PM Age: 88 years old Clinical indication: Injury or trauma; Blunt trauma (contusions or hematomas); Patient HX: Backwards fall striking occiput on concrete stepping out of vehicle. History of RT side CVA. ; Additional info: Trauma/fall TECHNIQUE: Imaging protocol: Computed tomography of the head without contrast. Radiation optimization: All CT scans at this facility use at least one of these dose optimization techniques: automated exposure control; mA and/or kV adjustment per patient size (includes targeted exams where dose is matched to clinical indication); or iterative reconstruction. COMPARISON: CT head wo con* [id number] 12/10/2022 11:06 AM RADIATION DOSE METRICS: Total DLP (mGy-cm): 2979.08 FINDINGS: Brain: Stable chronic right occipital lobe infarct with encephalomalacia. Mild to moderate cerebral atrophy and ischemic leukoencephalopathy. Cerebral ventricles: No ventriculomegaly. Paranasal sinuses: Visualized sinuses are unremarkable. No fluid levels. Mastoid air cells: Visualized mastoid air cells are well aerated. Bones/joints: Unremarkable. No acute fracture. Soft tissues: Midline occipital scalp contusion/hematoma. Other findings: Severe calcified intracranial atherosclerotic vessel disease. CT/CT head wo con* [id number] IMPRESSION: 1. Midline occipital scalp contusion/hematoma. 2. No acute intracranial findings.
--- NOTE | 2023-10-04 20:20 | CTR_ITS ---
PROCEDURE INFORMATION: Exam: CT Cervical Spine Without Contrast Exam date and time: 10/04/2023 8:49 PM Age: 88 years old Clinical indication: Injury or trauma; Blunt trauma; Prior surgery; Surgery date: 6+ months; Surgery type: Thyroidectomy; Patient HX: Backwards fall striking occiput on concrete stepping out of vehicle. History of RT side CVA. ; Additional info: Trauma/fall TECHNIQUE: Imaging protocol: Computed tomography of the cervical spine without contrast. Radiation optimization: All CT scans at this facility use at least one of these dose optimization techniques: automated exposure control; mA and/or kV adjustment per patient size (includes targeted exams where dose is matched to clinical indication); or iterative reconstruction. COMPARISON: CR XR cervical spine 3V* [id number] 12/10/2022 10:47 AM RADIATION DOSE METRICS: Total DLP (mGy-cm): 231.47 FINDINGS: Bones/joints: 2 mm anterior spondylolisthesis of C3 on C4 with associated chronic degenerative disc disease and spondylosis posteriorly. Severe left C3-C4 uncinate joint degenerative change. Moderate to severe bilateral C3-C4 facet degenerative change. Multilevel bilateral foraminal stenosis. Dental: Examination is limited secondary to metallic artifact from dental fillings and/or dental hardware. Lungs: Lung apices are normal. Soft tissues: Unremarkable. CT/CT cervical spin wo con* [id number] IMPRESSION: No acute intracranial findings.
[2023-10-04 20:21] VITALS: BP 149/100; PULSE 86; RESP 18; TEMP 36.8; O2SAT 92
--- NOTE | 2023-10-04 20:26 | ED_ITS ---
HPI - Fall General: Chief Complaint: Fall Stated Complaint: fall, head injury Time Seen by Provider: 10/04/23 20:19 History of Present Illness: 88-year-old female presents to the emerg ency department to be evaluated after having an accidental fall approximately 1 hour prior to presenting to the emergency department. Patient states she was recently here in the hospital was discharged she states that she had seen her follow-up physician and when she was getting out of the car had a misstep because she has left-sided upper and lower extremity weakness from a previous CVA approximately 3 years ago. She states she did fall and hit her head on concrete she denies loss of consciousness, she denies neck pain or back pain. She states she does have a hematoma to the occipital region of her head. She denies nausea vomiting change in mentation. She states she is able to stand with assistance and has no complaints of hip pain leg pain arm pain or back pain. Associated symptoms-after fall: Denies chest pain, headache(s) or neck pain Review of Systems General: Reports: 10 or more systems reviewed and unremarkable except in HPI and below Card: Denies: chest pain, palpitations or irregular heart rhythm Resp: Denies: dyspnea Musc: Reports: muscle weakness (Left upper and left lower leg weakness-chronic secondary to CVA); Denies: neck pain, back pain, extremity pain or extremity swelling Neuro: Reports: weakness in extremities (Left upper and left lower leg weakness); Denies: headache(s) [facility] ED PFSH: Medical History Urinary frequency Urgency incontinence Female bladder prolapse 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 Acute cystitis with hematuria Basal cell carcinoma of right forehead History of colon cancer Hyperlipidemia Hypothyroidism HTN (hypertension) Tendonitis Surgical History History of colon surgery RECONNECTED COLON History of back surgery Hx of bilateral cataract extraction Hx of hemorrhoidectomy Hx of hysterectomy Hx of partial thyroidectomy Family History Father , AT AGE 91 Diabetes MOTHER AT AGE 95 NATURAL CAUSES Grandmother Breast cancer Social History Smoking and tobacco/nicotine status: never used tobacco/nicotine Alcohol intake: never Household members: spouse Marital status: Current occupational status: retired Physical Exam Narrative: EXAM NARRATIVE: Constitutional: the patient appears well nourished and with normal development. Vital signs reviewed as documented. HENMT: 3 cm x 2 cm occipital scalp hematoma. External ears normal appearance without drainage. Nose without drainage, normal appearance. Mucus membranes moist. Neck is supple, No jugular venous distension, trachea is midline, no appreciable carotid bruits. No lymphadenopathy. No meningeal signs. Flexion, extension and lateral rotation is without pain. No crepitus, no palpable step-offs, normal alignment Eyes: Pupils are equal, round, reactive to light and accommodation. No scleral icterus. Extra-ocular movement are intact. Thorax is symmetrical and with equal rise and fall with respirations. Resp: Lungs are clear to auscultation. No wheezes, rales, crackles or ronchi at present. Cardio: Regular rate and rhythm. Positive S1, S2. No appreciable murmurs, rubs or gallops. GI: Abdominal exam reveals normal bowel sounds to all quadrants. No organomegaly. No obvious palpable masses noted. No hepatomegally appreciated. Soft, non-tender to palpation. Extremity: Extremities are non-edematous and both femoral and pedal pulses are 2+ and equal bilaterally. Moves all extremities well, sensation in all extremities. Neuro: Alert and oriented x4, person, place, time and situation. Cranial nerves II through XII are grossly intact, there is no focal neurological deficits that I can appreciate at present. Sensation intact to all extremities. 2-point discrimination intact. Light touch intact to all extremities. Motor strength in the upper and lower extremities on the left are 3/5 and motor strength in the upper and lower extremities on the right are 5/5. Patient states that her residual weakness is due to a previous CVA approximately 3 and half years ago. Psych: Cooperative, calm, normal thought process, appropriate judgment. Skin: No lesions, rashes. No gross abnormalities noted. Back: Symmetrical, no obvious deformity, No CVA tenderness, nontender to palpation, no palpable step-offs, no crepitus, no obvious deformity. Course Vital Signs: Vital signs: Vital Signs Temperature 98.3 F 10/04/23 20:21 Pulse Rate 87 10/04/23 21:20 Respiratory Rate 19 H 10/04/23 21:20 Blood Pressure 178/79 10/04/23 21:20 Pulse Oximetry 90 10/04/23 21:20 Oxygen Delivery Me thod Room Air 10/04/23 20:21 MDM - Fall Medical Decision Making Physical exam completed and documented I will obtain a CT scan of the head and cervical spine for evaluation. Medical Records I reviewed the patient's medical records. Lab Data Radiology Impressions Cervical Spine CT 10/04/23 20:20 IMPRESSION: No acute intracranial findings. Head CT 10/04/23 20:20 IMPRESSION: 1. Midline occipital scalp contusion/hematoma. 2. No acute intracranial findings. All radiology interpretation(s) finalized by discharge Discharge Plan Discharge Patient Disposition: Home Clinical Impression: Hematoma of occipital region of scalp Accidental fall Qualifiers: Encounter type: initial encounter Qualified Code(s): W19.XXXA - Unspecified fall, initial encounter Condition: Stable Prescriptions: No Action amlodipine 5 mg tablet 5 mg PO QAM nitrofurantoin monohyd/m-cryst 100 mg capsule 100 mg PO Q12H 7 Days Qty: 14 0RF Rx Instructions: must administer with a meal/food levothyroxine [Synthroid] 50 mcg tablet 50 mcg PO QAM ezetimibe 10 mg tablet 10 mg PO QAM aspirin 81 mg Tablet,Delayed Release (Dr/Ec) 81 mg PO QAM sertraline [Zoloft] 25 mg Tablet 25 mg PO QAM Systane Complete 0.6 % Drops 1 drp OPHTHALMIC (EYE) BID hydrochlorothiazide 12.5 mg tablet 12.5 mg PO DAILY PRN (Reason: fluid build up) Qty: 14 0RF cyanocobalamin (vitamin B-12) [Vitamin B-12] 1,000 mcg Tablet 1,000 mcg PO QAM acetaminophen 500 mg Tablet 500 mg PO BID oxybutynin chloride 5 mg tablet 5 mg PO DAILY@12 vitamin A-vitamin C-vit E-min Tablet 1 tab PO QAM naproxen [Naprosyn] 500 mg tablet 500 mg PO BID PRN (Reason: pain) Qty: 20 0RF hydrocodone-acetaminophen 5-325 mg tablet 1 tab PO Q8H PRN (Reason: pain) Qty: 7 0RF gabapentin 100 mg Capsule 100 mg PO DAILY acetaminophen 325 mg capsule 325 mg PO Q4H PRN (Reason: fever or postoperative pain) Qty: 60 0RF ibuprofen 800 mg tablet 800 mg PO TID PRN (Reason: pain) Qty: 60 0RF nitrofurantoin macrocrystal 100 mg capsule 100 mg PO BID 7 Days Qty: 14 0RF Rx Instructions: must administer with a meal/food Discharge Orders: Discharge ED (Routine); Ordered 10/04/23 Ordered By: Andrei Candelario Referrals: Michael Cabral MD [Primary Care Provider] - Discharge Diet: Usual diet Discharge Activity: Resume usual activity Patient Instructions: Cold Compress or Soak (ED), Opioid Safety, Pain Management Activity Restrictions/Additional Instructions: Activity Restrictions/Additional Instructions: Thank you for choosing [facility] for your healthcare needs today. Please realize that you were seen in the Emergency Department and that we are providing you with an emergency medical screening exam and this may not be a complete and all inclusive of all the testing and or medical work-up that you may need to determine your ailment or severity of your illness. It is very important that you follow-up as instructed with your Primary care provider or Specialist for additional evaluation and to discuss your medical treatment plan. Coding Level of Care Code ED Event Specialist Product Demonstrator for Uche Burnett
[2023-10-04 20:34] VITALS: BP 138/75; PULSE 82; RESP 20; O2SAT 89
[2023-10-04 21:20] VITALS: BP 178/79; PULSE 87; RESP 19; O2SAT 90
== END 2023-10-04 21:23 | disposition home or self-care (01) ==
PROVIDERS: Emergency Provider Internal Medicine; PCP Obstetrics & Gynecology
DX: S00.03XA Contusion of scalp, initial encounter (principal); Z79.82 Long term (current) use of aspirin; Z85.038 Personal history of other malignant neoplasm of large intestine; E78.5 Hyperlipidemia, unspecified; I10 Essential (primary) hypertension; W01.0XXA Fall on same level from slipping, tripping and stumbling without subsequent striking against object, initial encounter; Z86.73 Personal history of transient ischemic attack (TIA), and cerebral infarction without residual deficits
CPT/HCPCS: 70450; 72125; 99284

== ENCOUNTER → 2023-12-25 11:21 | Outpatient (BNVA) | payer MEDICARE, OTHER, SELFPAY | PROVIDERS: PCP Obstetrics & Gynecology | DX: Z86.73 Personal history of transient ischemic attack (TIA), and cerebral infarction without residual deficits (principal); I73.9 Peripheral vascular disease, unspecified; L60.3 Nail dystrophy | CPT/HCPCS: 11721 ==

== ENCOUNTER 2023-12-31 03:05 | Emergency (ER) | payer MEDICARE, OTHER, SELFPAY ==
[2023-12-31 03:06] VITALS: BP 182/70; PULSE 75; RESP 21; TEMP 36.6; O2SAT 95; BMI 23.8
--- NOTE | 2023-12-31 03:09 | ED_ITS ---
HPI - Nausea/Vomiting/Diarrhea 2 General: Chief complaint: Nausea/Vomiting/Diarrhea Stated complaint: N/V/D Time Seen by Provider: 12/31/23 03:08 History of Present Illness: Patient presents to the ER by EMS with complaints of nausea vomiting diarrhea, it all started throughout the night. When patient went to bed she felt fine. No one else in the household has similar complaints. Patient was given 8 mg of Zofran p.o. by EMS on route and patient is feeling better. Patient says she does not get this way very often. Per chart review patient has a history of colon cancer, dementia, right MCA ischemic stroke. Patient is in no acute distress nontoxic in appearance. Review of Systems 2 General: Reports: 10 or more systems reviewed and unremarkable except in HPI and below 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 Acute cystitis with hematuria Basal cell carcinoma of right forehead History of colon cancer Hyperlipidemia Hypothyroidism HTN (hypertension) Tendonitis Surgical History History of colon surgery RECONNECTED COLON History of back surgery Hx of bilateral cataract extraction Hx of hemorrhoidectomy Hx of hysterectomy Hx of partial thyroidectomy Family History Father , AT AGE 91 Diabetes MOTHER AT AGE 95 NATURAL CAUSES Grandmother Breast cancer Social History Smoking and tobacco/nicotine status: never used tobacco/nicotine Alcohol intake: never Household members: spouse Marital status: Current occupational status: retired Physical Exam 2 Const: COMMON NORMALS: no acute distress, average body habitus, no limitations, healthy appearing, alert and well nourished HENMT: COMMON NORMALS: normocephalic, atraumatic, hearing grossly normal bilaterally, external ears normal, Normal external nose present and moist oral mucous membranes HEAD & SCALP: normocephalic and atraumatic NOSE: Normal external nose present EXTERNAL EAR: Yes external ears normal Neck/C-Spine: COMMON NORMALS: no JVD Chest: COMMONS NORMALS: normal inspection of the chest and normal palpation of entire chest wall Resp: COMMON NORMALS: normal respiratory effort, No retractions, No use of accessory muscles and clear to auscultation bilaterally AUSCULTATION: clear to auscultation bilaterally Cardio: COMMON NORMALS: no JVD, regular rate, regular rhythm, S1 normal heart sound present, S2 normal heart sound present, No gallops present (Cardio), No clicks present (Cardio), No murmurs present (Cardio) and No rub (Cardio) R ATE: regular rate RHYTHM: regular rhythm HEART SOUNDS: S1 normal heart sound present and S2 normal heart sound present GI: COMMON NORMALS: Normal to inspection, nondistended, normoactive bowel sounds present, Soft to palpation, non-tender, No hepatosplenomegaly present and no masses PALPATION: Yes Soft to palpation and Yes No hepatosplenomegaly present Neuro: SENSORIUM/ORIENTATION: Yes alert Course 2 Vital Signs: Vital signs: Vital Signs Temperature 97.9 F 12/31/23 03:06 Pulse Rate 77 12/31/23 04:18 Respiratory Rate 16 12/31/23 04:18 Blood Pressure 154/87 12/31/23 04:18 Pulse Oximetry 93 12/31/23 04:18 Oxygen Delivery Me thod Room Air 12/31/23 03:06 MDM - Nausea/Vomiting/Diarrhea Medical Decision Making Patient presented with nausea vomiting diarrhea. EMS gave the patient 8 mg Zofran prior to arrival. Lab work was obtained showed a slightly elevated white count of 15.6, BUN/creatinine of 29 and 1.2, magnesium 1.9, urinalysis 2+ protein 5-10 white cells 5-10 red cells, these results was discussed with the patient. Patient says she is feeling much better. Patient be given a small prescription for Zofran and be discharged home to follow-up with her PCP. Medical Records I reviewed the patient's medical records. Lab Data I reviewed the patient's lab results. 12/31/23 04:00 12/31/23 04:00 Laboratory Results WBC 15.62 10^3/uL (3.29-11.43) H 12/31/23 04:00 RBC 4.66 10^6/uL (3.85-5.65) 12/31/23 04:00 Hgb 13.70 g/dL (11.27-16.99) 12/31/23 04:00 Hct 42.3 % (36-47) 12/31/23 04:00 MCV 90.8 fl (85-98) 12/31/23 04:00 MCH 29.4 pg (27-33) 12/31/23 04:00 MCHC 32.4 g/dL (30-55) 12/31/23 04:00 RDW 13.8 % (12.1-15.1) 12/31/23 04:00 Plt Count 230 10^3/cmm (157-399) 12/31/23 04:00 MPV 10.0 fL (7.4-10.4) 12/31/23 04:00 Neut % (Auto) 82.2 % 12/31/23 04:00 Lymph % (Auto) 9.2 % 12/31/23 04:00 [place] % (Auto) 6.9 % 12/31/23 04:00 Eos % (Auto) 1.2 % 12/31/23 04:00 Baso % (Auto) 0.1 % 12/31/23 04:00 Neut # (Auto) 12.85 10^3/uL (1.8-7.7) H 12/31/23 04:00 Lymph # (Auto) 1.4 10^3/uL (0.8-4.8) 12/31/23 04:00 [place] # (Auto) 1.1 10^3/uL (0.2-0.9) H 12/31/23 04:00 Eos # (Auto) 0.2 10^3/uL (0.0-0.8) 12/31/23 04:00 Baso # (Auto) 0.0 10^3/uL (0.0-0.1) 12/31/23 04:00 Nucleated RBC % (auto) 0 % 12/31/23 04:00 Nucleated RBCs # 0.0 /100WBC 12/31/23 04:00 Sodium 141 mmol/L (136-145) 12/31/23 04:00 Potassium 4.2 mmol/L (3.5-5.1) 12/31/23 04:00 Chloride 105 mmol/L (98-107) 12/31/23 04:00 Carbon Dioxide 23 mmol/L (22-29) 12/31/23 04:00 Anion Gap 17.2 (5-19) 12/31/23 04:00 BUN 29 mg/dL (8-23) H 12/31/23 04:00 Creatinine 1.2 mg/dL (0.5-0.9) H 12/31/23 04:00 GFR Calculation Not Reportable 12/31/23 04:00 Glucose 150 mg/dL (65-115) H 12/31/23 04:00 Calculated Osmolality 301 mOsm/kg (285-295) H 12/31/23 04:00 Calcium 9.1 mg/dL (8.5-10.5) 12/31/23 04:00 Magnesium 1.9 mg/dL (1.7-2.3) 12/31/23 04:00 Total Bilirubin 0.3 mg/dL (0.15-1.2) 12/31/23 04:00 AST 14 U/L (0-32) 12/31/23 04:00 ALT 8 U/L (0-33) 12/31/23 04:00 Alkaline Phosphatase 92 U/L (35-105) 12/31/23 04:00 Total Protein 6.9 g/dL (6.6-8.7) 12/31/23 04:00 Albumin 4.0 g/dL (3.5-5.2) 12/31/23 04:00 Globulin 2.9 g/dL (1.3-4.6) 12/31/23 04:00 Lipase 26 U/L (13-60) 12/31/23 04:00 Urine Color Yellow (Yellow) 12/31/23 04:00 Urine Appearance Cloudy (CLEAR) A 12/31/23 04:00 Urine pH 5 (5-7) 12/31/23 04:00 Ur Specific [place] 1.020 (1.005-1.030) 12/31/23 04:00 Urine Protein 2+ (Negative) H 12/31/23 04:00 Urine Glucose (UA) Norm (Normal) 12/31/23 04:00 Urine Ketones Negative (Negative) 12/31/23 04:00 Urine Blood Neg (Negative) 12/31/23 04:00 Urine Nitrate Negative (Negative) 12/31/23 04:00 Urine Bilirubin Neg (Negative) 12/31/23 04:00 Urine Urobilinogen Neg mg/dL (Negative) 12/31/23 04:00 Ur Leukocyte Esterase Negative (Negative) 12/31/23 04:00 Urine RBC 5-10 /hpf (0-2) H 12/31/23 04:00 Urine WBC 5-10 /hpf (0-5) H 12/31/23 04:00 Ur Squamous Epith Cells 0-4 /hpf (0-5) H 12/31/23 04:00 Amorphous Sediment Not Reportable 12/31/23 04:00 Urine Bacteria Trace /hpf (NONE) 12/31/23 04:00 Urine Mucus 2+ /hpf 12/31/23 04:00 All radiology interpretation(s) finalized by discharge EKG Data EKG 1: I personally reviewed and interpreted this EKG as follows: EKG interpretation date: 12/31/23 EKG interpretation time: 03:13 Interpretation: Ventricular rate 77 bpm, OH interval 174, QRS duration 93, QTc of 421, sinus rhythm Discharge Plan Discharge Patient Disposition: Home Clinical Impression: Gastroenteritis Condition: Stable Prescriptions: New ondansetron HCl 4 mg tablet 4 mg PO Q8H PRN (Reason: nausea and vomiting) Qty: 14 0RF No Action amlodipine 5 mg tablet 5 mg PO QAM nitrofurantoin monohyd/m-cryst 100 mg capsule 100 mg PO Q12H 7 Days Qty: 14 0RF Rx Instructions: must administer with a meal/food levothyroxine [Synthroid] 50 mcg tablet 50 mcg PO QAM ezetimibe 10 mg tablet 10 mg PO QAM aspirin 81 mg Tablet,Delayed Release (Dr/Ec) 81 mg PO QAM sertraline [Zoloft] 25 mg Tablet 25 mg PO QAM Systane Complete 0.6 % Drops 1 drp OPHTHALMIC (EYE) BID hydrochlorothiazide 12.5 mg tablet 12.5 mg PO DAILY PRN (Reason: fluid build up) Qty: 14 0RF cyanocobalamin (vitamin B-12) [Vitamin B-12] 1,000 mcg Tablet 1,000 mcg PO QAM acetaminophen 500 mg Tablet 500 mg PO BID oxybutynin chloride 5 mg tablet 5 mg PO DAILY@12 vitamin A-vitamin C-vit E-min Tablet 1 tab PO QAM naproxen [Naprosyn] 500 mg tablet 500 mg PO BID PRN (Reason: pain) Qty: 20 0RF hydrocodone-acetaminophen 5-325 mg tablet 1 tab PO Q8H PRN (Reason: pain) Qty: 7 0RF gabapentin 100 mg Capsule 100 mg PO DAILY acetaminophen 325 mg capsule 325 mg PO Q4H PRN (Reason: fever or postoperative pain) Qty: 60 0RF ibuprofen 800 mg tablet 800 mg PO TID PRN (Reason: pain) Qty: 60 0RF Discharge Orders: Discharge ED (Routine); Ordered 12/31/23 Ordered By: Efrem Whitlock Referrals: Michael Cabral MD [Primary Care Provider] - Patient Instructions: Gastroenteritis (ED) Activity Restrictions/Additional Instructions: A prescription for Zofran has been sent to [facility] in [place]. This should help with your nausea. Please drink plenty fluids otherwise you may end up getting dehydrated. Please follow-up with your family practice physician within the next 7 days for further evaluation and treatment. If your symptoms do not improve or if they worsen please feel free to return to the ER. Coding Level of Care Code ED Boiler Assistant Operator for Uche Burnett
--- NOTE | 2023-12-31 03:13 | ECG_ITS ---
[facility] Test Date: 2023-12-31 Pat Name: Deanne Hankins Department: Room: Gender: Female Security Police: : 1935 Requested By: Efrem Whitlock Order Number: [id number] Rodriguez MD: Gokul Brown M.D. Measurements Intervals [employer] Rate: 77 P: 73 ME: 174 QRS: -55 QRSD: 93 T: 74 QT: 389 QTc: 442 Interpretive Statements SINUS RHYTHM LEFT ANTERIOR FASCICULAR BLOCK [QRS AXIS <= -45, QR IN I, RS IN II] Compared to ECG 09/30/2023 13:52:53 Left anterior fascicular block now present Left-axis deviation no longer present Electronically Signed On 12-31-2023 17:21:08 CDT by Gokul Brown M.D. [id number] f
[2023-12-31 04:06] LABS: Basophils % 0.1 %; Eosinophils # 0.2 10^3/uL (0.0-0.8); Eosinophils % 1.2 %; Hematocrit 42.3 % (36-47); Lymphocytes # 1.4 10^3/uL (0.8-4.8); Lymphocytes % 9.2 %; Mean Corpuscular HGB Conc 32.4 g/dL (30-55); Mean Corpuscular Hemoglobin 29.4 pg (27-33); Mean Corpuscular Volume 90.8 fl (85-98); Monocytes # 1.1 10^3/uL (0.2-0.9); Monocytes % 6.9 %; Neutrophils # 12.85 10^3/uL (1.8-7.7); Neutrophils % 82.2 %; Nucleated Red Blood Cells % 0 %; Platelet Count 230 10^3/cmm (157-399); Red Blood Count 4.66 10^6/uL (3.85-5.65); Red Cell Distribution Width 13.8 % (12.1-15.1); White Blood Count 15.62 10^3/uL (3.29-11.43)
[2023-12-31 04:18] VITALS: BP 154/87; PULSE 77; RESP 16; O2SAT 93
[2023-12-31 04:26] LABS: Alanine Aminotransferase 8 U/L (0-33); Alkaline Phosphatase 92 U/L (35-105); Anion Gap 17.2 (5-19); Aspartate Amino Transferase 14 U/L (0-32); Blood Urea Nitrogen 29 mg/dL (8-23); Calcium 9.1 mg/dL (8.5-10.5); Carbon Dioxide 23 mmol/L (22-29); Chloride 105 mmol/L (98-107); Creatinine Clr Calc Pharmacy 27.4443; Globulin 2.9 g/dL (1.3-4.6); Glucose 150 mg/dL (65-115); Lipase 26 U/L (13-60); Magnesium 1.9 mg/dL (1.7-2.3); Osmolality Calculated 301 mOsm/kg (285-295); Potassium 4.2 mmol/L (3.5-5.1); Sodium 141 mmol/L (136-145); Total Bilirubin 0.3 mg/dL (0.15-1.2); Total Protein 6.9 g/dL (6.6-8.7)
[2023-12-31 04:27] LABS: Add Urine Microscopic? YES; Bilirubin Urine Neg (Negative); Blood Urine Neg (Negative); Glucose Urine UA Norm (Normal); Ketones Urine Negative (Negative); Leukocyte Esterase Urine Negative (Negative); Nitrate Urine Negative (Negative); Protein Urine 2+ (Negative); Urine Appearance Cloudy (CLEAR); Urine Color Yellow (Yellow); Urobilinogen Urine Neg (Negative); pH Urine 5 (5-7)
[2023-12-31 04:28] LABS: Bacteria Urine TRACE /hpf; Mucus Urine 2+ /hpf; Squamous Epithelial Cell Urine 0-4 /hpf (0-5)
[2023-12-31 05:15] VITALS: BP 154/87; PULSE 77; RESP 16; TEMP 36.6; O2SAT 93
== END 2023-12-31 05:16 | disposition home or self-care (01) ==
PROVIDERS: Emergency Provider Emergency Medicine; PCP Obstetrics & Gynecology
DX: K52.9 Noninfective gastroenteritis and colitis, unspecified (principal); I10 Essential (primary) hypertension; E78.5 Hyperlipidemia, unspecified; E03.9 Hypothyroidism, unspecified; F03.90 Unspecified dementia, unspecified severity, without behavioral disturbance, psychotic disturbance, mood disturbance, and anxiety; Z79.899 Other long term (current) drug therapy; Z79.82 Long term (current) use of aspirin; Z85.038 Personal history of other malignant neoplasm of large intestine
CPT/HCPCS: 80053; 81001; 83690; 83735; 85025; 93005; 99284

== ENCOUNTER 2024-01-18 12:20 | Emergency (ER) | payer MEDICARE, OTHER, SELFPAY ==
[2024-01-18 12:22] VITALS: BP 200/68; PULSE 75; RESP 15; TEMP 36.9; O2SAT 95
--- NOTE | 2024-01-18 12:22 | ECG_ITS ---
[facility] Test Date: 2024-01-18 Pat Name: Deanne Hankins Department: Room: Gender: Female Sandwich [employer] Drink Cart Operator: : 1935 Requested By: Vipin Lehman Order Number: [id number] Michael MD: Sallie Moon M.D. Measurements Intervals [place] Rate: 70 P: 45 CT: 143 QRS: -41 QRSD: 88 T: 42 QT: 377 QTc: 409 Interpretive Statements SINUS RHYTHM WITH OCCASIONAL SUPRAVENTRICULAR PREMATURE COMPLEXES LEFT AXIS DEVIATION [QRS AXIS < -30] Compared to ECG 12/31/2023 03:13:01 Left-axis deviation now present Left anterior fascicular block no longer present Electronically Signed On 01-18-2024 19:08:49 CDT by Sallie Moon M.D. [id number] f
[2024-01-18 14:16] LABS: Basophils # 0.1 10^3/uL (0.0-0.1); Basophils % 0.8 %; Eosinophils # 0.4 10^3/uL (0.0-0.8); Eosinophils % 3.9 %; Hematocrit 43.4 % (36-47); Lymphocytes # 3.3 10^3/uL (0.8-4.8); Lymphocytes % 31.9 %; Mean Corpuscular Hemoglobin 29.3 pg (27-33); Mean Corpuscular Volume 91.4 fl (85-98); Mean Platelet Volume 9.6 fL (7.4-10.4); Monocytes # 0.8 10^3/uL (0.2-0.9); Monocytes % 7.5 %; Neutrophils # 5.76 10^3/uL (1.8-7.7); Neutrophils % 55.5 %; Nucleated Red Blood Cells % 0 %; Platelet Count 308 10^3/cmm (157-399); Red Blood Count 4.75 10^6/uL (3.85-5.65); Red Cell Distribution Width 13.7 % (12.1-15.1); White Blood Count 10.37 10^3/uL (3.29-11.43)
[2024-01-18 14:23] VITALS: BP 154/46; PULSE 70; RESP 16; O2SAT 97
[2024-01-18 14:33] LABS: Alanine Aminotransferase 11 U/L (0-33); Albumin Level 4.1 g/dL (3.5-5.2); Alkaline Phosphatase 87 U/L (35-105); Anion Gap 15.4 (5-19); Aspartate Amino Transferase 16 U/L (0-32); Blood Urea Nitrogen 28 mg/dL (8-23); Calcium 8.9 mg/dL (8.5-10.5); Carbon Dioxide 24 mmol/L (22-29); Chloride 106 mmol/L (98-107); Globulin 2.5 g/dL (1.3-4.6); Glucose 123 mg/dL (65-115); Lipase 45 U/L (13-60); Osmolality Calculated 299 mOsm/kg (285-295); Potassium 4.4 mmol/L (3.5-5.1); Sodium 141 mmol/L (136-145); Total Bilirubin 0.2 mg/dL (0.15-1.2); Total Protein 6.6 g/dL (6.6-8.7)
[2024-01-18 14:34] LABS: Troponin(5th) Baseline 21 ng/L (0-10)
[2024-01-18 14:39] LABS: Creatinine Clr Calc Pharmacy 25.7616
--- NOTE | 2024-01-18 14:52 | CTR_ITS ---
PROCEDURE INFORMATION: Exam: CT Abdomen And Pelvis With Contrast Exam date and time: 01/18/2024 3:47 PM Age: 88 years old Clinical indication: Abdominal pain; Generalized TECHNIQUE: Imaging protocol: Computed tomography of the abdomen and pelvis with contrast. Radiation optimization: All CT scans at this facility use at least one of these dose optimization techniques: automated exposure control; mA and/or kV adjustment per patient size (includes targeted exams where dose is matched to clinical indication); or iterative reconstruction. Contrast material: OMNI 350; Contrast volume: 100 ml; Contrast route: INTRAVENOUS (IV); COMPARISON: CT abdomen pelvis w con* [id number] 07/22/2021 4:19 AM RADIATION DOSE METRICS: Total DLP (mGy-cm): 410.93 FINDINGS: Lungs: Lung bases are clear. No pleural effusion. Liver: Normal. No mass. Gallbladder and biliary ducts: Multiple gallstones are noted in the gallbladder but the gallbladder does not appear inflamed and demonstrates normal wall thickness. Pancreas: Normal. No ductal dilation. Spleen: Normal. No splenomegaly. Adrenal glands: Normal. No mass. Kidneys and ureters: Normal. No hydronephrosis. Stomach and bowel: Unremarkable. No obstruction. No mucosal thickening. Appendix: No evidence of appendicitis. Intraperitoneal space: Unremarkable. No free air. No significant fluid collection. Vasculature: Unremarkable. No abdominal aortic aneurysm. Lymph nodes: Unremarkable. No enlarged lymph nodes. Urinary bladder: There is chronic bladder wall thickening. Reproductive: Unremarkable as visualized. Bones/joints: Metallic surgical hardware can be seen in the lumbar spine. Soft tissues: There is a small umbilical hernia containing mesenteric fat. CT/CT abdomen pelvis w con* [id number] IMPRESSION: 1. No acute findings. 2. Cholelithiasis 3. Chronic bladder wall thickening
--- NOTE | 2024-01-18 14:53 | ECG_ITS ---
[facility] Test Date: 2024-01-18 Pat Name: Deanne Hankins Department: Room: Gender: Female Dress Marker: : 1935 Requested By: Vipin Lehman Order Number: [id number] Michael MD: Sallie Moon M.D. Measurements Intervals [place] Rate: 74 P: 50 MO: 179 QRS: -43 QRSD: 94 T: 56 QT: 401 QTc: 446 Interpretive Statements SINUS RHYTHM LEFT AXIS DEVIATION [QRS AXIS < -30] Compared to ECG 01/18/2024 12:22:37 No significant changes Electronically Signed On 01-18-2024 19:21:52 CDT by Sallie Moon M.D. [email or web address] [email or web address] of mercy [email or web address] - [id number]
[2024-01-18] MEDS: sodium chloride 0.9% 1,000 ML 999 ML IV (15:21)
[2024-01-18] MEDS: famotidine 20 mg/2 mL INJ 40 MG IVP (15:23)
[2024-01-18] MEDS: lidocaine 2% viscous 15 ML, aluminum-mag hydrox-simethicon 30 ML, sucralfate oral liq 1 GM PO (15:25)
--- NOTE | 2024-01-18 15:31 | ED_ITS ---
HPI - Abdominal Pain 2 General: Chief Complaint: Abdominal Pain Stated Complaint: Chest Pain, SOB Time Seen by Provider: 01/18/24 14:10 History of Present Illness: 88-year-old female who presents to the e mergency room with epigastric pain. This has been intermittent for about 3 weeks. She describes a burning pain. Her says she has had some episodes of vomiting and she is been taking some Zofran. Pain started again today so she came to the emergency room. No diarrhea. No bloating. No shortness of breath. Review of Systems 2 Narrative: Constitutional symptoms: Negative except as documented in HPI. Skin symptoms: Negative except as documented in HPI. Eye symptoms: Negative except as documented in HPI. ENMT symptoms: Negative except as documented in HPI. Respiratory symptoms: Negative except as documented in HPI. Cardiovascular symptoms: Negative except as documented in HPI. Gastrointestinal symptoms: Negative except as documented in HPI. Genitourinary symptoms: Negative except as documented in HPI. Musculoskeletal symptoms: Negative except as documented in HPI. Neurologic symptoms: Negative except as documented in HPI. Psychiatric symptoms: Negative except as documented in HPI. Endocrine symptoms: Negative except as documented in HPI. 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 Acute cystitis with hematuria Basal cell carcinoma of right forehead History of colon cancer Hyperlipidemia Hypothyroidism HTN (hypertension) Tendonitis Surgical History History of colon surgery RECONNECTED COLON History of back surgery Hx of bilateral cataract extraction Hx of hemorrhoidectomy Hx of hysterectomy Hx of partial thyroidectomy Family History Father , AT AGE 91 Diabetes MOTHER AT AGE 95 NATURAL CAUSES Grandmother Breast cancer Social History Smoking and tobacco/nicotine status: never used tobacco/nicotine Alcohol intake: never Household members: spouse Marital status: Current occupational status: retired Physical Exam 2 Narrative: EXAM NARRATIVE: General: Alert, no acute distress. Skin: Warm, dry. Head: Normocephalic, atraumatic. Neck: Supple, trachea midline. Eye: Extraocular movements are intact. Ears, nose, mouth and throat: mucosa moist. Cardiovascular: Regular, Normal peripheral perfusion. Respiratory: Lungs are clear to auscultation, respirations are non-labored, breath sounds are equal, Symmetrical chest wall expansion. Gastrointestinal: Soft, Nontender, Non distended Musculoskeletal: Normal ROM, no deformity. Neurological: Alert and oriented, No focal neurological deficit observed. Psychiatric: Cooperative, appropriate mood & affect. Course 2 Vital Signs: Vital signs: Vital Signs Temperature 98.4 F 01/18/24 12:22 Pulse Rate 70 01/18/24 14:23 Respiratory Rate 16 01/18/24 14:23 Blood Pressure 154/46 01/18/24 14:23 Pulse Oximetry 97 01/18/24 14:23 Oxygen Delivery Me thod Room Air 01/18/24 14:23 MDM - Abdominal Pain Medical Decision Making Differential diagnosis for patient with chest pain includes but is not limited to and based on the above HPI, review of systems and physical exam: Pneumonia. unstable angina. angina. Acute coronary syndrome / GA. Pulmonary embolism. Costochondritis / musculoskeletal. Pleurisy. Pericarditis. Esophageal spasm. Pancreatis. Cholecystitis. Orders placed to evaluate differential diagnosis based on the above differential, HPI and physical exam EKG: Time 12:22 PM. Rate 70. Normal sinus rhythm, No ST-T changes, no ectopy, normal MT & QRS intervals, This was reviewed and interpreted by myself the ER physician at 12:25 PM. Repeat EKG: Time 1453 PM. Rate 74. Normal sinus rhythm, No ST-T changes, no ectopy, normal MT & QRS intervals, This was reviewed and interpreted by myself the ER physician at 1457 PM. No acute changes from previous. Lab Review: Laboratory results were reviewed and interpreted by myself the emergency room physician. Mild leukocytosis with a white count 10.3. BUN and creatinine are 28 and 1.3. This is stable from her last measurement a couple weeks ago but up a little bit from her baseline. She is being given fluids. I reviewed the patient's medical record. CT of the abdomen and pelvis with contrast: No acute process. She does appear to have some chronic cystitis. This was reviewed and interpreted by myself the emergency room physician. I also reviewed the radiology report. Reexamination: Patient remained stable. No increased work of breathing. No altered mental status. No focal motor deficits. She has had no vomiting since she has been here. Assessment and plan: Acute cystitis Dehydration ?IV normal saline bolus, IV Rocephin. - Discharged home - Discussed findings and plan with patient. Answered any questions. - All laboratory values were reviewed and interpreted personally by myself, the ER physician - All imaging was reviewed and interpreted personally by myself, the ER physician. - Evaluation and treatment of this problem were appropriate in the emergency setting Lab Data 01/18/24 14:10 01/18/24 14:10 Labs/Radiology: Radiology Impressions Abdomen/Pelvis CT 01/18/24 14:52 IMPRESSION: 1. No acute findings. 2. Cholelithiasis 3. Chronic bladder wall thickening Laboratory Results WBC 10.37 10^3/uL (3.29-11.43) 01/18/24 14:10 RBC 4.75 10^6/uL (3.85-5.65) 01/18/24 14:10 Hgb 13.90 g/dL (11.27-16.99) 01/18/24 14:10 Hct 43.4 % (36-47) 01/18/24 14:10 MCV 91.4 fl (85-98) 01/18/24 14:10 MCH 29.3 pg (27-33) 01/18/24 14:10 MCHC 32.0 g/dL (30-55) 01/18/24 14:10 RDW 13.7 % (12.1-15.1) 01/18/24 14:10 Plt Count 308 10^3/cmm (157-399) 01/18/24 14:10 MPV 9.6 fL (7.4-10.4) 01/18/24 14:10 Neut % (Auto) 55.5 % 01/18/24 14:10 Lymph % (Auto) 31.9 % 01/18/24 14:10 Harlan % (Auto) 7.5 % 01/18/24 14:10 Eos % (Auto) 3.9 % 01/18/24 14:10 Baso % (Auto) 0.8 % 01/18/24 14:10 Neut # (Auto) 5.76 10^3/uL (1.8-7.7) 01/18/24 14:10 Lymph # (Auto) 3.3 10^3/uL (0.8-4.8) 01/18/24 14:10 Harlan # (Auto) 0.8 10^3/uL (0.2-0.9) 01/18/24 14:10 Eos # (Auto) 0.4 10^3/uL (0.0-0.8) 01/18/24 14:10 Baso # (Auto) 0.1 10^3/uL (0.0-0.1) 01/18/24 14:10 Nucleated RBC % (auto) 0 % 01/18/24 14:10 Nucleated RBCs # 0.0 /100WBC 01/18/24 14:10 Sodium 141 mmol/L (136-145) 01/18/24 14:10 Potassium 4.4 mmol/L (3.5-5.1) 01/18/24 14:10 Chloride 106 mmol/L (98-107) 01/18/24 14:10 Carbon Dioxide 24 mmol/L (22-29) 01/18/24 14:10 Anion Gap 15.4 (5-19) 01/18/24 14:10 BUN 28 mg/dL (8-23) H 01/18/24 14:10 Creatinine 1.3 mg/dL (0.5-0.9) H 01/18/24 14:10 GFR Calculation Not Reportable 01/18/24 14:10 Glucose 123 mg/dL (65-115) H 01/18/24 14:10 Calculated Osmolality 299 mOsm/kg (285-295) H 01/18/24 14:10 Lactic Acid 1.1 mmol/L (0.5-2.2) 01/18/24 14:10 Calcium 8.9 mg/dL (8.5-10.5) 01/18/24 14:10 Total Bilirubin 0.2 mg/dL (0.15-1.2) 01/18/24 14:10 AST 16 U/L (0-32) 01/18/24 14:10 ALT 11 U/L (0-33) 01/18/24 14:10 Alkaline Phosphatase 87 U/L (35-105) 01/18/24 14:10 Troponin T Baseline 21 ng/L (0-10) H 01/18/24 14:10 Total Protein 6.6 g/dL (6.6-8.7) 01/18/24 14:10 Albumin 4.1 g/dL (3.5-5.2) 01/18/24 14:10 Globulin 2.5 g/dL (1.3-4.6) 01/18/24 14:10 Lipase 45 U/L (13-60) 01/18/24 14:10 Urine Color Yellow (Yellow) 01/18/24 14:43 Urine Appearance Cloudy (CLEAR) A 01/18/24 14:43 Urine pH 6 (5-7) 01/18/24 14:43 Ur Specific [place] 1.020 (1.005-1.030) 01/18/24 14:43 Urine Protein 2+ (Negative) H 01/18/24 14:43 Urine Glucose (UA) Norm (Normal) 01/18/24 14:43 Urine Ketones 1+ (Negative) H 01/18/24 14:43 Urine Blood 2+ (Negative) H 01/18/24 14:43 Urine Nitrate Positive (Negative) A 01/18/24 14:43 Urine Bilirubin Neg (Negative) 01/18/24 14:43 Urine Urobilinogen Norm mg/dL (Negative) 01/18/24 14:43 Ur Leukocyte Esterase 2+ (Negative) H 01/18/24 14:43 Urine RBC 5-10 /hpf (0-2) H 01/18/24 14:43 Urine WBC Too numerous to cnt /hpf (0-5) H 01/18/24 14:43 Ur Squamous Epith Cells None /hpf (0-5) 01/18/24 14:43 Amorphous Sediment Not Reportable 01/18/24 14:43 Urine Bacteria 4+ /hpf (NONE) H 01/18/24 14:43 All radiology interpretation(s) finalized by discharge Discharge Plan Discharge Patient Disposition: Home Clinical Impression: Dehydration Urinary tract infection Qualifiers: Urinary tract infection type: acute cystitis Hematuria presence: without hematuria Qualified Code(s): N30.00 - Acute cystitis without hematuria Condition: Stable Prescriptions: New ondansetron 8 mg tablet,disintegrating 8 mg PO .q6 PRN (Reason: nausea and vomiting) Qty: 14 0RF cefdinir 300 mg capsule 300 mg PO BID 10 Days Qty: 20 0RF No Action amlodipine 5 mg tablet 5 mg PO QAM nitrofurantoin monohyd/m-cryst 100 mg capsule 100 mg PO Q12H 7 Days Qty: 14 0RF Rx Instructions: must administer with a meal/food levothyroxine [Synthroid] 50 mcg tablet 50 mcg PO QAM ezetimibe 10 mg tablet 10 mg PO QAM aspirin 81 mg Tablet,Delayed Release (Dr/Ec) 81 mg PO QAM sertraline [Zoloft] 25 mg Tablet 25 mg PO QAM Systane Complete 0.6 % Drops 1 drp OPHTHALMIC (EYE) BID hydrochlorothiazide 12.5 mg tablet 12.5 mg PO DAILY PRN (Reason: fluid build up) Qty: 14 0RF cyanocobalamin (vitamin B-12) [Vitamin B-12] 1,000 mcg Tablet 1,000 mcg PO QAM acetaminophen 500 mg Tablet 500 mg PO BID oxybutynin chloride 5 mg tablet 5 mg PO DAILY@12 vitamin A-vitamin C-vit E-min Tablet 1 tab PO QAM naproxen [Naprosyn] 500 mg tablet 500 mg PO BID PRN (Reason: pain) Qty: 20 0RF hydrocodone-acetaminophen 5-325 mg tablet 1 tab PO Q8H PRN (Reason: pain) Qty: 7 0RF gabapentin 100 mg Capsule 100 mg PO DAILY acetaminophen 325 mg capsule 325 mg PO Q4H PRN (Reason: fever or postoperative pain) Qty: 60 0RF ibuprofen 800 mg tablet 800 mg PO TID PRN (Reason: pain) Qty: 60 0RF ondansetron HCl 4 mg tablet 4 mg PO Q8H PRN (Reason: nausea and vomiting) Qty: 14 0RF Discharge Orders: Discharge ED (Routine); Ordered 01/18/24 Ordered By: Bushra Tay Referrals: Michael Cabral MD [Primary Care Provider] - Discharge Diet: Advance as tolerated Discharge Activity: Increase activity as tolerated Patient Instructions: Urinary Tract Infection in Older Adults (ED) Activity Restrictions/Additional Instructions: Thank you for choosing [facility] for your healthcare needs today. Please realize this is an emergency room and that we are providing you with a medical screening exam and this may not be complete and all inclusive of all the testing and or work up that you may need to determine your ailment or severity of your illness. You have been screened and evaluated and felt safe for discharge. Health conditions do change or evolve sometimes and as such it is important that you follow up with your Primary Doctor to be re checked, 3-5 days is a general good time frame for follow up. 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
[2024-01-18 15:35] LABS: Blood Urine 2+ (Negative); Glucose Urine UA Norm (Normal); Ketones Urine 1+ (Negative); Protein Urine 2+ (Negative); Urine Appearance Cloudy (CLEAR); Urine Color Yellow (Yellow); pH Urine 6 (5-7)
[2024-01-18 15:36] LABS: Add Urine Culture? Yes; Add Urine Microscopic? YES; Bacteria Urine 4+ /hpf; Bilirubin Urine Neg (Negative); Leukocyte Esterase Urine 2+ (Negative); Nitrate Urine Positive (Negative); Urobilinogen Urine Norm (Negative); WBC Urine TOO NUMEROUS TO CNT /hpf (0-5)
[2024-01-18] MEDS: iohexol 350 mg/mL 500 mL Btl (per mL) IV (15:56)
[2024-01-18 16:21] LABS: Lactic Sepsis W/Reflex 1.1 mmol/L (0.5-2.2)
[2024-01-18] MEDS: cefTRIAXone 1,000 MG in sodium chloride 0.9% (plus) 50 ML 100 MG IV (16:48)
[2024-01-18 17:00] VITALS: BP 164/69; RESP 18; O2SAT 95
[2024-01-18 17:48] VITALS: PULSE 89; RESP 18; O2SAT 92
== END 2024-01-18 17:50 | disposition home or self-care (01) ==
PROVIDERS: Nurse Practitioner Family; Emergency Provider Emergency Medicine; PCP Obstetrics & Gynecology
DX: N30.00 Acute cystitis without hematuria (principal); E86.0 Dehydration; Z79.82 Long term (current) use of aspirin; Z87.440 Personal history of urinary (tract) infections; Z85.038 Personal history of other malignant neoplasm of large intestine; E78.5 Hyperlipidemia, unspecified; I10 Essential (primary) hypertension
CPT/HCPCS: 36415; 74177; 80053; 81001; 83605; 83690; 84484; 85025; 87040; 87077; 87086; 87186; 93005; 96361; 96365; 96375; 99285; J0696; J3490; J7030; Q9967

== ENCOUNTER → 2024-01-22 09:15 | Outpatient (BNVA) | payer MEDICARE, OTHER, SELFPAY | PROVIDERS: PCP Obstetrics & Gynecology; Visit Provider Obstetrics & Gynecology | DX: R30.0 Dysuria (principal) | CPT/HCPCS: 84315; 87086 ==

== ENCOUNTER 2024-01-24 22:50 | Emergency (ER) | payer MEDICARE, OTHER, SELFPAY ==
[2024-01-24 22:52] VITALS: BP 153/80; PULSE 90; RESP 18; TEMP 36.6; O2SAT 95; BMI 21.0
[2024-01-24 22:57] VITALS: BP 153/80; PULSE 89; RESP 16; TEMP 36.4; O2SAT 93
--- NOTE | 2024-01-24 23:34 | XRR_ITS ---
PROCEDURE INFORMATION: Exam: XR Abdomen Exam date and time: 01/24/2024 11:36 PM Age: 88 years old Clinical indication: Constipation; Prior surgery; Surgery date: 6+ months; Surgery type: Hysterectomy. Lumbar fusion. Colon anastamosis. ; Additional info: Constipated TECHNIQUE: Imaging protocol: Radiologic exam of the abdomen. Views: Frontal supine view of the abdomen. 1 View. COMPARISON: CT abdomen pelvis w con* [id number] 01/18/2024 3:47 PM FINDINGS: Gastrointestinal tract: Large volume fecal debris noted in the rectosigmoid. Organs: Gallstones are noted. No abnormal calcifications over the kidneys or expected course of either ureter. Bones/joints: Lumbar fusion hardware noted. XR/XR KUB portable [id number] IMPRESSION: 1. Large volume fecal debris noted in the distal colon. No obstructive features. 2. Cholelithiasis.
--- NOTE | 2024-01-24 23:59 | W.ED.ABDPA2 ---
HPI - Abdominal Pain General: Chief Complaint: Abdominal Pain Stated Complaint: constipation Time Seen by Provider: 01/24/24 23:06 Source: patient and family Mode of arrival: ambulatory Limitations: no limitations History of Present Illness: Patient is an 88-year-old female who presents to the emergency department complaining of constipation onset 2 days. Patient was seen here in the emergency department on 01/17 for dehydration, had normal laboratory workup and CT at that time as she was also having some epigastric pain. Patient notes that she just recently started Farxiga and Januvia. Patient is reporting bloating and states her last meal bowel movement was about a day and a half ago. reportedly gave patient a couple Dulcolax today though this did not seem to help patient's symptoms. She states that most of her pain is in her rectal region, she denies any blood in her stool. She states she is still retained the ability to pass gas. Has not tried anything other than the Dulcolax. No other symptoms to report at this time. MD elicited complaint: other (Constipation) Onset (ago): day(s) Pain Consistency: constant Quality: cramping Relieving factors: nothing Associated Symptoms: Reports bloating, constipation and GI cramping; Denies change in stool character, chills, diarrhea, dysuria, fever(s), hematochezia, nausea and vomiting Treatments prior to arrival: other (Dulcolax) Review of Systems General: Reports: 10 or more systems reviewed and unremarkable except in HPI and below Const: Denies: fever(s), chills, change in appetite, change in weight or diaphoresis ENMT: Denies: throat pain or hoarseness Card: Denies: chest pain, palpitations or lightheadedness Resp: Denies: dyspnea, productive cough or wheezing GI: Reports: constipation, bloating, GI cramping and rectal pain; Denies: nausea, vomiting, diarrhea, change in stool character or hematochezia : Denies: flank pain, difficulty voiding, dysuria, urinary frequency or urinary urgency Musc: Denies: neck pain or back pain Skin/Breast: Denies: rash or new lesions Neuro: Denies: headache(s) or dizziness PFS ED PFSH: Medical History Urinary frequency Urgency incontinence Female bladder prolapse 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 Acute cystitis with hematuria Basal cell carcinoma of right forehead History of colon cancer Hyperlipidemia Hypothyroidism HTN (hypertension) Tendonitis Surgical History History of colon surgery RECONNECTED COLON History of back surgery Hx of bilateral cataract extraction Hx of hemorrhoidectomy Hx of hysterectomy Hx of partial thyroidectomy Family History Father , AT AGE 91 Diabetes MOTHER AT AGE 95 NATURAL CAUSES Grandmother Breast cancer Social History Smoking and tobacco/nicotine status: never used tobacco/nicotine Alcohol intake: never Household members: spouse Marital status: Current occupational status: retired Physical Exam Const: COMMON NORMALS: no acute distress, average body habitus, patient oriented x3, no limitations, healthy appearing, alert and well nourished GENERAL APPEARANCE: cooperative and comfortable ORIENTATION/CONSCIOUSNESS: Yes awake HENMT: COMMON NORMALS: normocephalic, atraumatic, hearing grossly normal bilaterally, external ears normal, Normal external nose present, Normal nasal mucous membranes and turbinates present and moist oral mucous membranes HEAD & SCALP: normocephalic and atraumatic NOSE: Normal external nose present and Normal nasal mucous membranes and turbinates present EXTERNAL EAR: Yes external ears normal Eye: COMMON NORMALS: Equal, round and reactive pupils present, EOMs intact bilaterally, conjunctivae normal and normal visual reyes by confrontation CONJUNCTIVA: Yes conjunctivae normal PUPIL: Yes Equal, round and reactive pupils present Neck/C-Spine: COMMON NORMALS: full ROM, supple, no meningeal signs and no JVD Resp: COMMON NORMALS: normal respiratory effort, No retractions, No use of accessory muscles and clear to auscultation bilaterally AUSCULTATION: clear to auscultation bilaterally, no crackles, no rales, no rhonchi and no wheezes Cardio: COMMON NORMALS: no JVD, regular rate, regular rhythm, S1 normal heart sound present, S2 normal heart sound present, No gallops present (Cardio), No clicks present (Cardio), No murmurs present (Cardio), No rub (Cardio) and Peripheral pulses 2+ throughout RATE: regular rate RHYTHM: regular rhythm HEART SOUNDS: S1 normal heart sound present and S2 normal heart sound present PERIPHERAL PULSES: Peripheral pulses 2+ throughout GI: COMMON NORMALS: Soft to palpation, No hepatosplenomegaly present and no masses INSPECTION: Yes abdominal distension AUSCULTATION: Yes normoactive bowel sounds PALPATION: Yes Soft to palpation, Yes Tenderness to palpation present (GI) (Mild diffuse tenderness to palpation), No Guarding due to palpation present (GI), No Rigid due to palpation and Yes No hepatosplenomegaly present RECTAL EXAM: deferred Extremity: COMMON NORMALS: normal to inspection and full ROM Neuro: COMMON NORMALS: patient oriented x3, moves all extremities, no focal motor deficits and no sensory deficits noted SENSORIUM/ORIENTATION: Yes alert MENINGEAL SIGNS: Yes no meningeal signs Psych: COMMON NORMALS: mental status grossly normal, cooperative and speech normal SPEECH: Yes normal speech Skin: COMMON NORMALS: no rashes or lesions noted GENERAL SKIN EXAM: no rashes or lesions noted Course Vital Signs: Vital signs: Vital Signs Temperature 97.6 F 01/24/24 22:57 Pulse Rate 92 01/25/24 01:53 Respiratory Rate 16 01/25/24 02:00 Blood Pressure 159/95 01/25/24 01:53 Pulse Oximetry 96 01/25/24 02:00 Oxygen Delivery Me thod Room Air 01/25/24 02:00 MDM - Abdominal Pain Medical Decision Making Patient presented for signs and symptoms of constipation as she had noted some bloating and diffuse abdominal pain. Had only taken Dulcolax at home without relief. Physical exam did find her to be diffusely tender to palpation and abdomen did appear mildly distended. KUB was obtained and did show a large volume fecal debris without any obstructive process. She recently underwent CT with her last ED visit along with lab work that was all unremarkable. I will send her home with cocktail of mag citrate, lactulose, and mineral oil and prescribed MiraLAX for her to take at home. She is to return if she continues to be constipated and I did instruct her to increase her dietary fiber and fluid intake, as her last ED visit found her to be dehydrated. She will follow-up with primary care as needed. Patient's case discussed with Dr. Whitlock who agrees with disposition at this time. Lab Data Labs/Radiology: Radiology Impressions KUB X-Ray 01/24/24 23:34 IMPRESSION: 1. Large volume fecal debris noted in the distal colon. No obstructive features. 2. Cholelithiasis. All radiology interpretation(s) finalized by discharge Discharge Plan Discharge Patient Disposition: Home Clinical Impression: Constipation Qualifiers: Constipation type: unspecified constipation type Qualified Code(s): K59.00 - Constipation, unspecified Condition: Stable Prescriptions: New Miralax 17 gram/dose powder 4 g PO DAILY Qty: 119 0RF No Action amlodipine 5 mg tablet 5 mg PO QAM nitrofurantoin monohyd/m-cryst 100 mg capsule 100 mg PO Q12H 7 Days Qty: 14 0RF Rx Instructions: must administer with a meal/food levothyroxine [Synthroid] 50 mcg tablet 50 mcg PO QAM ezetimibe 10 mg tablet 10 mg PO QAM aspirin 81 mg Tablet,Delayed Release (Dr/Ec) 81 mg PO QAM sertraline [Zoloft] 25 mg Tablet 25 mg PO QAM Systane Complete 0.6 % Drops 1 drp OPHTHALMIC (EYE) BID hydrochlorothiazide 12.5 mg tablet 12.5 mg PO DAILY PRN (Reason: fluid build up) Qty: 14 0RF cyanocobalamin (vitamin B-12) [Vitamin B-12] 1,000 mcg Tablet 1,000 mcg PO QAM acetaminophen 500 mg Tablet 500 mg PO BID oxybutynin chloride 5 mg tablet 5 mg PO DAILY@12 vitamin A-vitamin C-vit E-min Tablet 1 tab PO QAM naproxen [Naprosyn] 500 mg tablet 500 mg PO BID PRN (Reason: pain) Qty: 20 0RF hydrocodone-acetaminophen 5-325 mg tablet 1 tab PO Q8H PRN (Reason: pain) Qty: 7 0RF gabapentin 100 mg Capsule 100 mg PO DAILY acetaminophen 325 mg capsule 325 mg PO Q4H PRN (Reason: fever or postoperative pain) Qty: 60 0RF ibuprofen 800 mg tablet 800 mg PO TID PRN (Reason: pain) Qty: 60 0RF ondansetron HCl 4 mg tablet 4 mg PO Q8H PRN (Reason: nausea and vomiting) Qty: 14 0RF ondansetron 8 mg tablet,disintegrating 8 mg PO .q6 PRN (Reason: nausea and vomiting) Qty: 14 0RF cefdinir 300 mg capsule 300 mg PO BID 10 Days Qty: 20 0RF Discharge Orders: Discharge ED (Routine); Ordered 01/25/24 Ordered By: Keagan Aragon Referrals: Ebony Jenkins FNP [Primary Care Provider] - Discharge Diet: As Directed Discharge Activity: Increase activity as tolerated Patient Instructions: Constipation (ED) Activity Restrictions/Additional Instructions: Take MiraLAX as prescribed. Plenty of fluids and increase your dietary fiber intake. Please follow-up with primary care later next week for reevaluation. Return with any new or concerning symptoms may have. Continue home medications. 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
[2024-01-25 00:10] VITALS: BP 159/95; PULSE 85; RESP 16; O2SAT 91
[2024-01-25] MEDS: magnesium citrate Btl 296 mL PO (00:23)
[2024-01-25] MEDS: lactulose oral liq 20 gm/30 mL UDC 30 GM PO (00:23)
[2024-01-25] MEDS: mineral oil 30 mL UDC PO (00:23)
[2024-01-25 01:53] VITALS: BP 159/95; PULSE 92; RESP 16; O2SAT 91
[2024-01-25 02:00] VITALS: RESP 16; O2SAT 96
--- NOTE | 2024-01-25 02:15 | PC.NURSE ---
Pt was assisted to bedside commode by this nurse and was able to produce large bowel movement
[2024-01-25] MEDS: ondansetron 2 mg/ML SDV 2 mL 8 MG IM (02:37)
== END 2024-01-25 02:47 | disposition home or self-care (01) ==
PROVIDERS: Emergency Provider Physician Assistant; PCP Nurse Practitioner Family
DX: K59.00 Constipation, unspecified (principal); I10 Essential (primary) hypertension; E78.5 Hyperlipidemia, unspecified; E03.9 Hypothyroidism, unspecified; Z79.899 Other long term (current) drug therapy
CPT/HCPCS: 74018; 99284; J2405

== ENCOUNTER 2024-03-11 14:22 | Outpatient (CLI) | payer MEDICARE, OTHER, SELFPAY ==
--- NOTE | 2024-03-11 15:24 | MM_ITS ---
WS: [id number] Bilateral screening 3D tomosynthesis digital mammogram, 03/11/2024 Clinical Data: SCREEN Comparison: 03/08/2023, 03/05/2022, 10/25/2020, 09/18/2019, 08/20/2018, 07/25/2017, 07/13/2016, 07/12/2015, 1 08/26/2013, 06/10/2014, 05/22/2013, 04/30/2012, 04/20/2011, 04/13/2009, 03/30/2008, 03/27/2007. Findings: The breast parenchymal pattern shows heterogeneous density. No spiculated masses or clustered calcifi cations are seen. There are no secondary signs of carcinoma. There are benign calcifications in the r ight breast. There is a biopsy clip in the lateral aspect of the right breast. MM/[place] [id number] Impression: 1. Negative bilateral mammogram unchanged. 2. Recommend annual screening mammograms. BIRADS: 1-Negative FOLLOW UP: 1 Year Follow-up The CAD return checker was used.
== END 2024-03-11 14:23 | disposition home or self-care (01) ==
LOC: RAD 14:23
PROVIDERS: PCP Nurse Practitioner Family; Visit Provider Nurse Practitioner Family
DX: Z12.31 Encounter for screening mammogram for malignant neoplasm of breast (principal)
CPT/HCPCS: 77063; 77067

== ENCOUNTER → 2024-04-08 10:44 | Outpatient (BNVA) | payer MEDICARE, OTHER, SELFPAY | PROVIDERS: PCP Nurse Practitioner Family; Visit Provider Podiatrist Foot & Ankle Surgery | DX: Z86.73 Personal history of transient ischemic attack (TIA), and cerebral infarction without residual deficits (principal); I73.9 Peripheral vascular disease, unspecified; L60.3 Nail dystrophy | CPT/HCPCS: 11721 ==

== ENCOUNTER 2024-06-24 19:26 | Emergency (ER) | payer MEDICARE, OTHER, SELFPAY ==
[2024-06-24 19:29] VITALS: BP 177/87; PULSE 86; RESP 18; TEMP 36.9; O2SAT 92
[2024-06-24 19:33] VITALS: BP 163/116; PULSE 89; RESP 17; O2SAT 94
--- NOTE | 2024-06-24 19:33 | XRR_ITS ---
PROCEDURE INFORMATION: Exam: XR Chest Exam date and time: 06/24/2024 7:36 PM Age: 88 years old Clinical indication: Cough TECHNIQUE: Imaging protocol: Radiologic exam of the chest. Views: 1 view. COMPARISON: CR XR ribs LT mn 3V w [id number] [id number] 12/10/2022 10:47 AM FINDINGS: Lungs: Unremarkable. No consolidation. Pleural spaces: Unremarkable. No pleural effusion. No pneumothorax. Heart/Mediastinum: Stable cardiomediastinal silhouette. Vasculature: Tortuous thoracic aorta with atherosclerotic calcifications. Diaphragm: Similar asymmetric elevation of the right hemidiaphragm. Bones/joints: Unremarkable. Organs: Suspected cholelithiasis. XR/XR chest 1V portable [id number] IMPRESSION: No acute cardiopulmonary findings.
--- NOTE | 2024-06-24 19:44 | W.ED.GENADLT ---
HPI - General Adult General: Chief complaint: Upper Respiratory Infection Stated complaint: CHOKED ON PIZZA Time Seen by Provider: 06/24/24 19:28 Source: patient and EMS Mode of arrival: EMS Limitations: no limitations History of Present Illness: 88-year-old female states she is eating pizza she states roughly an hour and a half ago states she had a choking episode felt like got stuck states she feels much improved currently she states she is back to her baseline has no complaints at this time states she has had slight cough for 2 weeks nothing increased denies any shortness of breath denies abdominal pain denies any fever Associated symptoms: Deny chest pain, dyspnea, headache(s), nausea, rash or vomiting Related Data Home Medications Medication Instructions Recorded Confirmed ezetimibe 10 mg tablet 10 mg PO QAM 02/05/20 04/08/24 levothyroxine 50 mcg tablet 50 mcg PO QAM 02/05/20 04/08/24 (Synthroid) aspirin 81 mg tablet,delayed 81 mg PO QAM 03/28/20 04/08/24 release propylene glycol 0.6 % eye drops 1 drp ophthalmic (eye) BID 03/28/20 04/08/24 (Systane Complete) sertraline 25 mg tablet (Zoloft) 25 mg PO QAM 03/28/20 04/08/24 amlodipine 5 mg tablet 5 mg PO QAM 05/08/21 04/08/24 acetaminophen 500 mg tablet 500 mg PO BID 12/10/22 04/08/24 cyanocobalamin (vitamin B-12) 1,000 mcg PO QAM 12/10/22 04/08/24 1,000 mcg tablet (Vitamin B-12) oxybutynin chloride 5 mg tablet 5 mg PO DAILY@12 12/10/22 04/08/24 vitamin A-vitamin C-vit E-min 1 tab PO QAM 12/10/22 04/08/24 tablet gabapentin 100 mg capsule 100 mg PO DAILY 10/01/23 04/08/24 Previous Rx's Medication Instructions Recorded hydrochlorothiazide 12.5 mg tablet 12.5 mg PO DAILY PRN fluid build 10/19/21 up #14 tabs naproxen 500 mg tablet (Naprosyn) 500 mg PO BID PRN pain #20 tabs 12/15/22 hydrocodone 5 mg-acetaminophen 325 1 tab PO Q8H PRN pain #7 tabs 16/ mg tablet nitrofurantoin 100 mg PO Q12H 7 days #14 caps 09/23/23 monohydrate/macrocrystals 100 mg capsule acetaminophen 325 mg capsule 325 mg PO Q4H PRN fever or 10/04/23 postoperative pain #60 caps ibuprofen 800 mg tablet 800 mg PO TID PRN pain #60 tabs 10/04/23 ondansetron HCl 4 mg tablet 4 mg PO Q8H PRN nausea and 12/31/23 vomiting #14 tabs ondansetron 8 mg disintegrating 8 mg PO .q6 PRN nausea and 01/18/24 tablet vomiting #14 tabs polyethylene glycol 3350 17 4 g PO DAILY #119 grams 01/25/24 gram/dose oral powder (Miralax) Allergies Allergy/AdvReac Type Severity Reaction Status Date / Time cephalexin [From Keflex] Allergy Unknown ADR-Diarrhe Verified 06/24/24 19:34 a chlorthalidone Allergy Unknown Unknown Verified 06/24/24 19:34 clindamycin Allergy Unknown Unknown Verified 06/24/24 19:34 lisinopril Allergy Unknown Unknown Verified 06/24/24 19:34 Focnqan-ANV-XaR Reductase Allergy Unknown Verified 06/24/24 19:34 Inhibitor [Fjeoqhz-Rry-Lgm Reductase Inhibitor] Sulfa (Sulfonamide Allergy ALGY-Rash Verified 06/24/24 19:34 Antibiotics) gemfibrozil [From Lopid] AdvReac Unknown ADR-Diarrhe Verified 06/24/24 19:34 a guaifenesin [From Mucinex] AdvReac Unknown ADR-Diarrhe Verified 06/24/24 19:34 a cefuroxime [From Ceftin] AdvReac ADR-Diarrhe Verified 06/24/24 19:34 a Review of Systems Const: Denies: fever(s), chills, body aches or change in appetite ENMT: Denies: throat pain or dental pain Card: Denies: chest pain Resp: Denies: dyspnea GI: Denies: abdominal pain, nausea, vomiting or diarrhea Musc: Denies: neck pain or back pain Skin/Breast: Denies: rash Neuro: Denies: headache(s) PFSH ED PFSH: Medical History Urinary frequency Urgency incontinence Female bladder prolapse 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 Acute cystitis with hematuria Basal cell carcinoma of right forehead History of colon cancer Hyperlipidemia Hypothyroidism HTN (hypertension) Tendonitis Surgical History History of colon surgery RECONNECTED COLON History of back surgery Hx of bilateral cataract extraction Hx of hemorrhoidectomy Hx of hysterectomy Hx of partial thyroidectomy Family History Father , AT AGE 91 Diabetes MOTHER AT AGE 95 NATURAL CAUSES Grandmother Breast cancer Social History Smoking and tobacco/nicotine status: unknown if used tobacco/nicotine Alcohol intake: never Household members: spouse Marital status: Current occupational status: retired Physical Exam Const: COMMON NORMALS: no acute distress, patient oriented x3 and healthy appearing HENMT: COMMON NORMALS: normocephalic and atraumatic HEAD & SCALP: normocephalic and atraumatic Eye: COMMON NORMALS: Equal, round and reactive pupils present and EOMs intact bilaterally PUPIL: Yes Equal, round and reactive pupils present Neck/C-Spine: COMMON NORMALS: full ROM and supple Chest: COMMONS NORMALS: normal inspection of the chest and normal palpation of entire chest wall Resp: COMMON NORMALS: normal respiratory effort, No retractions, No use of accessory muscles and clear to auscultation bilaterally AUSCULTATION: clear to auscultation bilaterally Cardio: COMMON NORMALS: regular rate, regular rhythm and No murmurs present (Cardio) RATE: regular rate RHYTHM: regular rhythm GI: COMMON NORMALS: Normal to inspection, nondistended, normoactive bowel sounds present, Soft to palpation, non-tender and no masses PALPATION: Yes Soft to palpation Extremity: COMMON NORMALS: normal to inspection and full ROM Neuro: COMMON NORMALS: patient oriented x3, moves all extremities and no focal motor deficits Psych: COMMON NORMALS: mental status grossly normal, Normal thought process present and cooperative THOUGHT PROCESS: Normal thought process present Skin: COMMON NORMALS: no rashes or lesions noted and no wounds GENERAL SKIN EXAM: no rashes or lesions noted Course Vital Signs: Vital signs: Vital Signs Temperature 98.4 F 06/24/24 19:29 Pulse Rate 89 06/24/24 19:33 Respiratory Rate 17 06/24/24 19:33 Blood Pressure 163/116 06/24/24 19:33 Pulse Oximetry 94 06/24/24 19:33 Oxygen Delivery Me thod Room Air 06/24/24 19:33 MDM - General Adult Medical Decision Making Patient presents with choking episode she feels much improved she been able to tolerate p.o. here with no difficulty she stable for discharge Medical Records I reviewed the patient's medical records. XR interpretation done by ED provider, pending radiology final review ED provider radiology interpretation(s): Chest x-ray no acute findings Discharge Plan Discharge Patient Disposition: Home Clinical Impression: Choking episode Condition: Stable Prescriptions: No Action amlodipine 5 mg tablet 5 mg PO QAM nitrofurantoin monohyd/m-cryst 100 mg capsule 100 mg PO Q12H 7 Days Qty: 14 0RF Rx Instructions: must administer with a meal/food levothyroxine [Synthroid] 50 mcg tablet 50 mcg PO QAM ezetimibe 10 mg tablet 10 mg PO QAM aspirin 81 mg Tablet,Delayed Release (Dr/Ec) 81 mg PO QAM sertraline [Zoloft] 25 mg Tablet 25 mg PO QAM Systane Complete 0.6 % Drops 1 drp OPHTHALMIC (EYE) BID hydrochlorothiazide 12.5 mg tablet 12.5 mg PO DAILY PRN (Reason: fluid build up) Qty: 14 0RF cyanocobalamin (vitamin B-12) [Vitamin B-12] 1,000 mcg Tablet 1,000 mcg PO QAM acetaminophen 500 mg Tablet 500 mg PO BID oxybutynin chloride 5 mg tablet 5 mg PO DAILY@12 vitamin A-vitamin C-vit E-min Tablet 1 tab PO QAM naproxen [Naprosyn] 500 mg tablet 500 mg PO BID PRN (Reason: pain) Qty: 20 0RF hydrocodone-acetaminophen 5-325 mg tablet 1 tab PO Q8H PRN (Reason: pain) Qty: 7 0RF gabapentin 100 mg Capsule 100 mg PO DAILY acetaminophen 325 mg capsule 325 mg PO Q4H PRN (Reason: fever or postoperative pain) Qty: 60 0RF ibuprofen 800 mg tablet 800 mg PO TID PRN (Reason: pain) Qty: 60 0RF ondansetron HCl 4 mg tablet 4 mg PO Q8H PRN (Reason: nausea and vomiting) Qty: 14 0RF Miralax 17 gram/dose powder 4 g PO DAILY Qty: 119 0RF ondansetron 8 mg tablet,disintegrating 8 mg PO .q6 PRN (Reason: nausea and vomiting) Qty: 14 0RF Discharge Orders: Discharge ED (Routine); Ordered 06/24/24 Ordered By: Inez Reece Referrals: Ebony Jenkins FNP [Primary Care Provider] - Discharge Diet: Advance as tolerated Discharge Activity: Resume usual activity Patient Instructions: Choking Coding Level of Care Code ED Assistive Technology Specialist for [facility] Burnett
[2024-06-24 21:03] VITALS: BP 168/97; PULSE 83; O2SAT 95
== END 2024-06-24 20:58 | disposition home or self-care (01) ==
PROVIDERS: Emergency Provider Emergency Medicine; PCP Nurse Practitioner Family
DX: T17.928A Food in respiratory tract, part unspecified causing other injury, initial encounter (principal); W44.F3XA Food entering into or through a natural orifice, initial encounter; C44.91 Basal cell carcinoma of skin, unspecified; I10 Essential (primary) hypertension; E78.5 Hyperlipidemia, unspecified
CPT/HCPCS: 71045; 99283

== ENCOUNTER → 2024-07-06 10:53 | Outpatient (BNVA) | payer MEDICARE, OTHER, SELFPAY | PROVIDERS: PCP Nurse Practitioner Family; Visit Provider Podiatrist Foot & Ankle Surgery | DX: E11.8 Type 2 diabetes mellitus with unspecified complications (principal); Z86.73 Personal history of transient ischemic attack (TIA), and cerebral infarction without residual deficits; I73.9 Peripheral vascular disease, unspecified; L60.3 Nail dystrophy | CPT/HCPCS: 11721 ==

== ENCOUNTER 2024-08-09 17:47 | Emergency (ER) | payer MEDICARE, SELFPAY ==
[2024-08-09 17:48] VITALS: BP 175/76; PULSE 82; RESP 18; TEMP 36.7; O2SAT 96; BMI 24.7
[2024-08-09] MEDS: amoxicillin-clav 875-125 mg Tablet 1 TAB PO (19:46)
--- NOTE | 2024-08-09 19:47 | W.ED.ANIMALB ---
HPI - Animal Bite General: Chief Complaint: Animal Bite Stated Complaint: dog bite on rt ankle Time Seen by Provider: 08/09/24 19:21 History of Present Illness: This patient is an 89-year-old white female who presents to the ER with a dog bite to the right ankle. Patient states she was bitten by her own dog today. Related Data Home Medications Medication Instructions Recorded Confirmed ezetimibe 10 mg tablet 10 mg PO QAM 02/05/20 07/06/24 levothyroxine 50 mcg tablet 50 mcg PO QAM 02/05/20 07/06/24 (Synthroid) aspirin 81 mg tablet,delayed 81 mg PO QAM 03/28/20 07/06/24 release propylene glycol 0.6 % eye drops 1 drp ophthalmic (eye) BID 03/28/20 07/06/24 (Systane Complete) sertraline 25 mg tablet (Zoloft) 25 mg PO QAM 03/28/20 07/06/24 amlodipine 5 mg tablet 5 mg PO QAM 05/08/21 07/06/24 acetaminophen 500 mg tablet 500 mg PO BID 12/10/22 07/06/24 cyanocobalamin (vitamin B-12) 1,000 mcg PO QAM 12/10/22 07/06/24 1,000 mcg tablet (Vitamin B-12) oxybutynin chloride 5 mg tablet 5 mg PO DAILY@12 12/10/22 07/06/24 vitamin A-vitamin C-vit E-min 1 tab PO QAM 12/10/22 07/06/24 tablet gabapentin 100 mg capsule 100 mg PO DAILY 10/01/23 07/06/24 Previous Rx's Medication Instructions Recorded hydrochlorothiazide 12.5 mg tablet 12.5 mg PO DAILY PRN fluid build 10/19/21 up #14 tabs naproxen 500 mg tablet (Naprosyn) 500 mg PO BID PRN pain #20 tabs 12/15/22 hydrocodone 5 mg-acetaminophen 325 1 tab PO Q8H PRN pain #7 tabs 02/03/23 mg tablet nitrofurantoin 100 mg PO Q12H 7 days #14 caps 09/23/23 monohydrate/macrocrystals 100 mg capsule acetaminophen 325 mg capsule 325 mg PO Q4H PRN fever or 10/04/23 postoperative pain #60 caps ibuprofen 800 mg tablet 800 mg PO TID PRN pain #60 tabs 10/04/23 ondansetron HCl 4 mg tablet 4 mg PO Q8H PRN nausea and 12/31/23 vomiting #14 tabs ondansetron 8 mg disintegrating 8 mg PO .q6 PRN nausea and 01/18/24 tablet vomiting #14 tabs polyethylene glycol 3350 17 4 g PO DAILY #119 grams 01/25/24 gram/dose oral powder (Miralax) amoxicillin 875 mg-potassium 1 tab PO BID #14 tabs 08/09/24 clavulanate 125 mg tablet Allergies Allergy/AdvReac Type Severity Reaction Status Date / Time cephalexin [From Keflex] Allergy Unknown ADR-Diarrhe Verified 08/09/24 17:56 a chlorthalidone Allergy Unknown Unknown Verified 08/09/24 17:56 clindamycin Allergy Unknown Unknown Verified 08/09/24 17:56 lisinopril Allergy Unknown Unknown Verified 08/09/24 17:56 Jcslqxz-RZQ-ZsY Reductase Allergy Unknown Verified 08/09/24 17:56 Inhibitor [Evwrphw-Xqu-Coo Reductase Inhibitor] Sulfa (Sulfonamide Allergy ALGY-Rash Verified 08/09/24 17:56 Antibiotics) gemfibrozil [From Lopid] AdvReac Unknown ADR-Diarrhe Verified 08/09/24 17:56 a guaifenesin [From Mucinex] AdvReac Unknown ADR-Diarrhe Verified 08/09/24 17:56 a cefuroxime [From Ceftin] AdvReac ADR-Diarrhe Verified 08/09/24 17:56 a Review of Systems Skin/Breast: Reports: new lesions PFSH ED PFSH: Medical History Urinary frequency Urgency incontinence Female bladder prolapse 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 Acute cystitis with hematuria Basal cell carcinoma of right forehead History of colon cancer Hyperlipidemia Hypothyroidism HTN (hypertension) Tendonitis Surgical History History of colon surgery RECONNECTED COLON History of back surgery Hx of bilateral cataract extraction Hx of hemorrhoidectomy Hx of hysterectomy Hx of partial thyroidectomy Family History Father , AT AGE 91 Diabetes MOTHER AT AGE 95 NATURAL CAUSES Grandmother Breast cancer Social History Smoking and tobacco/nicotine status: unknown if used tobacco/nicotine Alcohol intake: never Household members: spouse Marital status: Current occupational status: retired Physical Exam Const: COMMON NORMALS: no acute distress Skin: NARRATIVE SKIN EXAM: Bite rachel over the right ankle. Mild surrounding erythema. Course Vital Signs: Vital signs: Vital Signs Temperature 98.0 F 08/09/24 17:48 Pulse Rate 82 08/09/24 17:48 Respiratory Rate 18 08/09/24 17:48 Blood Pressure 175/76 08/09/24 17:48 Pulse Oximetry 96 08/09/24 17:48 Oxygen Delivery Me thod Room Air 08/09/24 17:48 MDM - Animal Bite Medical Decision Making Patient was placed on Augmentin and given her first dose in the emergency department. Recommended she follow-up with her primary care provider in 1 week for recheck. She was discharged in stable condition. No radiology studies performed this visit Discharge Plan Discharge Patient Disposition: Home Clinical Impression: Dog bite Qualifiers: Encounter type: initial encounter Qualified Code(s): W54.0XXA - Bitten by dog, initial encounter Condition: Stable Prescriptions: New amoxicillin-pot clavulanate 875-125 mg tablet 1 tab PO BID Qty: 14 0RF No Action amlodipine 5 mg tablet 5 mg PO QAM nitrofurantoin monohyd/m-cryst 100 mg capsule 100 mg PO Q12H 7 Days Qty: 14 0RF Rx Instructions: must administer with a meal/food levothyroxine [Synthroid] 50 mcg tablet 50 mcg PO QAM ezetimibe 10 mg tablet 10 mg PO QAM aspirin 81 mg Tablet,Delayed Release (Dr/Ec) 81 mg PO QAM sertraline [Zoloft] 25 mg Tablet 25 mg PO QAM Systane Complete 0.6 % Drops 1 drp OPHTHALMIC (EYE) BID hydrochlorothiazide 12.5 mg tablet 12.5 mg PO DAILY PRN (Reason: fluid build up) Qty: 14 0RF cyanocobalamin (vitamin B-12) [Vitamin B-12] 1,000 mcg Tablet 1,000 mcg PO QAM acetaminophen 500 mg Tablet 500 mg PO BID oxybutynin chloride 5 mg tablet 5 mg PO DAILY@12 vitamin A-vitamin C-vit E-min Tablet 1 tab PO QAM naproxen [Naprosyn] 500 mg tablet 500 mg PO BID PRN (Reason: pain) Qty: 20 0RF hydrocodone-acetaminophen 5-325 mg tablet 1 tab PO Q8H PRN (Reason: pain) Qty: 7 0RF gabapentin 100 mg Capsule 100 mg PO DAILY acetaminophen 325 mg capsule 325 mg PO Q4H PRN (Reason: fever or postoperative pain) Qty: 60 0RF ibuprofen 800 mg tablet 800 mg PO TID PRN (Reason: pain) Qty: 60 0RF ondansetron HCl 4 mg tablet 4 mg PO Q8H PRN (Reason: nausea and vomiting) Qty: 14 0RF Miralax 17 gram/dose powder 4 g PO DAILY Qty: 119 0RF ondansetron 8 mg tablet,disintegrating 8 mg PO .q6 PRN (Reason: nausea and vomiting) Qty: 14 0RF Discharge Orders: Discharge ED (Routine); Ordered 08/09/24 Ordered By: Gonzalez Aaron Referrals: Dior De La Garza FNP [Primary Care Provider] - Patient Instructions: Animal Bite (ED) Activity Restrictions/Additional Instructions: Follow-up with primary care provider in 1 week for recheck. Coding Level of Care Code ED Energy Projects Lead for [employer] Burnett
== END 2024-08-09 20:02 | disposition home or self-care (01) ==
PROVIDERS: Emergency Provider Emergency Medicine; PCP Nurse Practitioner Family
DX: S91.051A Open bite, right ankle, initial encounter (principal); W54.0XXA Bitten by dog, initial encounter; Z79.82 Long term (current) use of aspirin; I10 Essential (primary) hypertension; E78.5 Hyperlipidemia, unspecified; Z85.038 Personal history of other malignant neoplasm of large intestine; C44.319 Basal cell carcinoma of skin of other parts of face
CPT/HCPCS: 99283

== ENCOUNTER → 2024-08-12 15:00 | Outpatient (BNVA) | payer MEDICARE, SELFPAY | PROVIDERS: PCP Nurse Practitioner Family; Visit Provider Nurse Practitioner Family | DX: L57.8 Other skin changes due to chronic exposure to nonionizing radiation (principal); D22.5 Melanocytic nevi of trunk; L81.4 Other melanin hyperpigmentation; D69.2 Other nonthrombocytopenic purpura; S60.222A Contusion of left hand, initial encounter; W54.0XXA Bitten by dog, initial encounter; Z08 Encounter for follow-up examination after completed treatment for malignant neoplasm; Z85.828 Personal history of other malignant neoplasm of skin | CPT/HCPCS: 99214 ==

== ENCOUNTER 2024-08-28 20:08 | Emergency (ER) | payer MEDICARE, SELFPAY ==
[2024-08-28 20:28] VITALS: BP 164/71; PULSE 72; RESP 18; TEMP 36.7; O2SAT 95
--- NOTE | 2024-08-28 21:02 | CTR_ITS ---
PROCEDURE INFORMATION: Exam: CT Head Without Contrast Exam date and time: 08/28/2024 9:57 PM Age: 89 years old Clinical indication: Injury or trauma; Blunt trauma (contusions or hematomas); Patient sustained fall while in shower. Struck left side of head. History of RT posterior CVA. TECHNIQUE: Imaging protocol: Computed tomography of the head without contrast. Radiation optimization: All CT scans at this facility use at least one of these dose optimization techniques: automated exposure control; mA and/or kV adjustment per patient size (includes targeted exams where dose is matched to clinical indication); or iterative reconstruction. COMPARISON: CT head wo con* [id number] 10/04/2023 8:44 PM RADIATION DOSE METRICS: Total DLP (mGy-cm): 993.28 FINDINGS: Brain: Similar area of chronic encephalomalacia and infarct involving the medial aspect of the right parieto-occipital lobes. Age-related brain parenchymal atrophy. Areas of hypoattenuation in the periventricular and subcortical deep white matter likely on the basis of chronic microvascular ischemic changes. No acute intra cranial hemorrhage. No mass effect or midline shift. No definitive CT evidence of acute territorial infarction. Cerebral ventricles: Prominence of the lateral ventricular system likely on the basis of ex vacuo dilatation. Paranasal sinuses: Visualized sinuses are unremarkable. No fluid levels. Mastoid air cells: Visualized mastoid air cells are well aerated. Bones: Intact calvarium. Old infarcts in the bilateral thalami. Soft tissues: Unremarkable. CT/CT head wo con* [id number] IMPRESSION: No acute intracranial process. Chronic changes as above.
--- NOTE | 2024-08-28 21:02 | XRR_ITS ---
PROCEDURE INFORMATION: Exam: XR Right Hip Exam date and time: 08/28/2024 9:44 PM Age: 89 years old Clinical indication: Right hip; RT hip pain post fall TECHNIQUE: Imaging protocol: Radiologic exam of the right hip. Views: 1 view hip with pelvis when performed. COMPARISON: CT abdomen pelvis w con* [id number] 01/18/2024 3:47 PM FINDINGS: Bones/joints: No acute displaced fracture. Bilateral hip joint degenerative changes. Postsurgical changes of the lower lumbar spine pelvis. Soft tissues: Unremarkable. Other findings: . XR/XR hip RT 2-3V wo/w pel* [id number] IMPRESSION: As above.
--- NOTE | 2024-08-28 21:55 | W.ED.FALL ---
HPI - Fall General: Chief Complaint: Fall Stated Complaint: fall. right hip. left side head pain Time Seen by Provider: 08/28/24 21:40 Source: patient and family Mode of arrival: EMS Limitations: no limitations History of Present Illness: Patient is an 89-year-old female who presents the emergency department by EMS after a fall occurred 2 hours prior to arrival. Patient reportedly was using the bathroom, stood up to her walker however stumbled and fell against the wall, stating that she hit her left head but also is having pain to her right hip as she harpreet it. She is not on any blood thinners. No prolonged downtime and she did not lose consciousness. Vitals are stable at this time, she is not reporting any other injuries with the fall. She states this was entirely accidental she did not have any symptoms preceding the fall. MD complaint: fall Onset (ago): hour(s) (2) Fall from: other (standing up off of toilet) Fall witnessed: yes, by family Place fall occurred: home Loss of consciousness: None Prolonged down time: no Symptoms prior to fall: none Context: tripped/slipped Location of injury: head Location of injury - extremities: Right: thigh (rt hip) Severity: mild Associated symptoms-after fall: Reports no associated symptoms; Denies abdominal pain, chest pain, headache(s) or neck pain Related Data Home Medications ?Medication ?Instructions ?Recorded ?Confirmed ezetimibe 10 mg tablet 10 mg PO QAM 02/05/20 07/06/24 levothyroxine 50 mcg tablet 50 mcg PO QAM 02/05/20 07/06/24 (Synthroid) aspirin 81 mg tablet,delayed 81 mg PO QAM 03/28/20 07/06/24 release propylene glycol 0.6 % eye drops 1 drp ophthalmic (eye) BID 03/28/20 07/06/24 (Systane Complete) sertraline 25 mg tablet (Zoloft) 25 mg PO QAM 03/28/20 07/06/24 amlodipine 5 mg tablet 5 mg PO QAM 05/08/21 07/06/24 acetaminophen 500 mg tablet 500 mg PO BID 12/10/22 07/06/24 cyanocobalamin (vitamin B-12) 1,000 mcg PO QAM 12/10/22 07/06/24 1,000 mcg tablet (Vitamin B-12) oxybutynin chloride 5 mg tablet 5 mg PO DAILY@12 12/10/22 07/06/24 vitamin A-vitamin C-vit E-min 1 tab PO QAM 12/10/22 07/06/24 tablet gabapentin 100 mg capsule 100 mg PO DAILY 10/01/23 07/06/24 Previous Rx's ?Medication ?Instructions ?Recorded hydrochlorothiazide 12.5 mg tablet 12.5 mg PO DAILY PRN fluid build 10/19/21 up #14 tabs naproxen 500 mg tablet (Naprosyn) 500 mg PO BID PRN pain #20 tabs 12/15/22 hydrocodone 5 mg-acetaminophen 325 1 tab PO Q8H PRN pain #7 tabs 02/03/23 mg tablet nitrofurantoin 100 mg PO Q12H 7 days #14 caps 09/23/23 monohydrate/macrocrystals 100 mg capsule acetaminophen 325 mg capsule 325 mg PO Q4H PRN fever or 10/04/23 postoperative pain #60 caps ibuprofen 800 mg tablet 800 mg PO TID PRN pain #60 tabs 10/04/23 ondansetron HCl 4 mg tablet 4 mg PO Q8H PRN nausea and 12/31/23 vomiting #14 tabs ondansetron 8 mg disintegrating 8 mg PO .q6 PRN nausea and 01/18/24 tablet vomiting #14 tabs polyethylene glycol 3350 17 4 g PO DAILY #119 grams 01/25/24 gram/dose oral powder (Miralax) amoxicillin 875 mg-potassium 1 tab PO BID #14 tabs 08/09/24 clavulanate 125 mg tablet Allergies Allergy/AdvReac Type Severity Reaction Status Date / Time cephalexin (From Keflex) Allergy Unknown ADR-Diarrhe Verified 08/28/24 20:34 a chlorthalidone Allergy Unknown Unknown Verified 08/28/24 20:34 clindamycin Allergy Unknown Unknown Verified 08/28/24 20:34 lisinopril Allergy Unknown Unknown Verified 08/28/24 20:34 Pywvnso-GVX-GnA Reductase Allergy Unknown Verified 08/28/24 20:34 Inhibitor (Zxggcbb-Vge-Uba Reductase Inhibitor) Sulfa (Sulfonamide Allergy ALGY-Rash Verified 08/28/24 20:34 Antibiotics) gemfibrozil (From Lopid) AdvReac Unknown ADR-Diarrhe Verified 08/28/24 20:34 a guaifenesin (From Mucinex) AdvReac Unknown ADR-Diarrhe Verified 08/28/24 20:34 a cefuroxime (From Ceftin) AdvReac ADR-Diarrhe Verified 08/28/24 20:34 a Review of Systems General: Reports: 10 or more systems reviewed and unremarkable except in HPI and below Const: Reports: other (fall/hit head); Denies: fever(s) or chills Card: Denies: chest pain Resp: Denies: dyspnea or productive cough GI: Denies: abdominal pain, nausea, vomiting or diarrhea : Denies: flank pain Musc: Reports: joint pain (rt hip); Denies: neck pain, back pain, extremity pain, extremity swelling, joint swelling, joint redness, joint warmth, limited range of motion or muscle weakness Skin/Breast: Denies: rash Neuro: Denies: headache(s), numbness in extremities or weakness in extremities PFSH ED PFSH: Medical History Urinary frequency Urgency incontinence Female bladder prolapse 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 Acute cystitis with hematuria Basal cell carcinoma of right forehead History of colon cancer Hyperlipidemia Hypothyroidism HTN (hypertension) Tendonitis Surgical History History of colon surgery RECONNECTED COLON History of back surgery Hx of bilateral cataract extraction Hx of hemorrhoidectomy Hx of hysterectomy Hx of partial thyroidectomy Family History Father , AT AGE 91 Diabetes MOTHER AT AGE 95 NATURAL CAUSES Grandmother Breast cancer Social History Smoking and tobacco/nicotine status: unknown if used tobacco/nicotine Alcohol intake: never Household members: spouse Marital status: Current occupational status: retired Physical Exam Const: COMMON NORMALS: no acute distress, patient oriented x3, no limitations, healthy appearing, alert and well nourished HENMT: COMMON NORMALS: normocephalic and atraumatic HEAD & SCALP: normocephalic and atraumatic; no Daily's sign, no hematoma, no palpable skull fracture, no raccoon eyes and no scalp tenderness Eye: COMMON NORMALS: Equal, round and reactive pupils present, EOMs intact bilaterally and conjunctivae normal CONJUNCTIVA: Yes conjunctivae normal PUPIL: Yes Equal, round and reactive pupils present Neck/C-Spine: COMMON NORMALS: full ROM, supple and no meningeal signs Chest: COMMONS NORMALS: normal inspection of the chest and normal palpation of entire chest wall Resp: COMMON NORMALS: normal respiratory effort, No use of accessory muscles and clear to auscultation bilaterally AUSCULTATION: clear to auscultation bilaterally Cardio: COMMON NORMALS: regular rate and regular rhythm RATE: regular rate RHYTHM: regular rhythm Back/Pelvis: OTHER: Hips are nontender to palpation bilaterally. Full range of motion at the hips bilaterally. No shortening or internal/external rotation of the extremities. Distal pulses intact. Extremity: COMMON NORMALS: normal to inspection, full ROM, capillary refill normal, no joint enlargement and no clubbing, cyanosis or edema Neuro: COMMON NORMALS: patient oriented x3, CN's II-XII intact bilaterally, moves all extremities, no focal motor deficits and no sensory deficits noted SENSORIUM/ORIENTATION: Yes alert MENINGEAL SIGNS: Yes no meningeal signs Skin: NARRATIVE SKIN EXAM: Abrasions to bilateral lower extremities from previous dog bite Course Vital Signs: Vital signs: Vital Signs Temperature 98.0 F 08/28/24 20:28 Pulse Rate 72 08/28/24 20:28 Respiratory Rate 18 08/28/24 20:28 Blood Pressure 164/71 08/28/24 20:28 Pulse Oximetry 95 08/28/24 20:28 Oxygen Delivery Me thod Room Air 08/28/24 20:28 MDM - Fall Medical Decision Making Patient presented by ambulance for fall, this was accidental there were no symptoms preceding the fall. She reported mild pain to her right hip, x-ray of the pelvis was negative for any acute fracture or dislocation. Also complained of hitting her left head, though neurologically there were no abnormalities on exam. CT head was normal. She will be discharged home with general return precautions, of which she verbalized understanding. Lab Data Radiology Impressions Head CT 08/28/24 21:02 IMPRESSION: No acute intracranial process. Chronic changes as above. Hip/Pelvis X-Ray 08/28/24 21:02 IMPRESSION: As above. All radiology interpretation(s) finalized by discharge Discharge Plan Discharge Patient Disposition: Home Clinical Impression: Acute pain of right hip CHI (closed head injury) Qualifiers: Encounter type: initial encounter Qualified Code(s): S09.90XA - Unspecified injury of head, initial encounter Condition: Stable Prescriptions: No Action amlodipine 5 mg tablet 5 mg PO QAM nitrofurantoin monohyd/m-cryst 100 mg capsule 100 mg PO Q12H 7 Days Qty: 14 0RF Rx Instructions: must administer with a meal/food levothyroxine [Synthroid] 50 mcg tablet 50 mcg PO QAM ezetimibe 10 mg tablet 10 mg PO QAM aspirin 81 mg Tablet,Delayed Release (Dr/Ec) 81 mg PO QAM sertraline [Zoloft] 25 mg Tablet 25 mg PO QAM Systane Complete 0.6 % Drops 1 drp OPHTHALMIC (EYE) BID hydrochlorothiazide 12.5 mg tablet 12.5 mg PO DAILY PRN (Reason: fluid build up) Qty: 14 0RF cyanocobalamin (vitamin B-12) [Vitamin B-12] 1,000 mcg Tablet 1,000 mcg PO QAM acetaminophen 500 mg Tablet 500 mg PO BID oxybutynin chloride 5 mg tablet 5 mg PO DAILY@12 vitamin A-vitamin C-vit E-min Tablet 1 tab PO QAM naproxen [Naprosyn] 500 mg tablet 500 mg PO BID PRN (Reason: pain) Qty: 20 0RF hydrocodone-acetaminophen 5-325 mg tablet 1 tab PO Q8H PRN (Reason: pain) Qty: 7 0RF gabapentin 100 mg Capsule 100 mg PO DAILY acetaminophen 325 mg capsule 325 mg PO Q4H PRN (Reason: fever or postoperative pain) Qty: 60 0RF ibuprofen 800 mg tablet 800 mg PO TID PRN (Reason: pain) Qty: 60 0RF ondansetron HCl 4 mg tablet 4 mg PO Q8H PRN (Reason: nausea and vomiting) Qty: 14 0RF Miralax 17 gram/dose powder 4 g PO DAILY Qty: 119 0RF amoxicillin-pot clavulanate 875-125 mg tablet 1 tab PO BID Qty: 14 0RF ondansetron 8 mg tablet,disintegrating 8 mg PO .q6 PRN (Reason: nausea and vomiting) Qty: 14 0RF Discharge Orders: Discharge ED (Routine); Ordered 08/28/24 Ordered By: Keagan Aragon Referrals: Dior De La Garza FNP [Primary Care Provider] - Patient Instructions: Pain Management Activity Restrictions/Additional Instructions: Tylenol or ibuprofen for pain. Follow-up with your primary care provider. Return with any new or worsening Print Language: Bengali Coding Level of Care Code ED [employer] for Uche Burnett
[2024-08-28 23:02] VITALS: BP 163/90; PULSE 87; RESP 16; O2SAT 96
== END 2024-08-29 00:13 | disposition home or self-care (01) ==
PROVIDERS: Emergency Provider Physician Assistant; PCP Nurse Practitioner Family
DX: M25.551 Pain in right hip (principal); S09.8XXA Other specified injuries of head, initial encounter; Z79.82 Long term (current) use of aspirin; E78.5 Hyperlipidemia, unspecified; I10 Essential (primary) hypertension; Z85.038 Personal history of other malignant neoplasm of large intestine; W19.XXXA Unspecified fall, initial encounter
CPT/HCPCS: 70450; 73502; 99284

== ENCOUNTER 2024-09-02 16:43 | Outpatient (CLI) | payer MEDICARE, SELFPAY ==
--- NOTE | 2024-09-02 16:56 | XRR_ITS ---
PROCEDURE INFORMATION: Exam: XR Left Shoulder Exam date and time: 09/02/2024 4:58 PM Age: 89 years old Clinical indication: Pain and injury or trauma; Fall; Blunt trauma (contusions or hematomas); Shoulder; Left; Additional info: Pain in left shoulder TECHNIQUE: Imaging protocol: Radiologic exam of the left shoulder. Views: 2 or more views. COMPARISON: CR XR shoulder LT min 2V* [id number] 12/15/2022 4:06 AM FINDINGS: Bones/joints: No fracture or dislocation is seen about the left shoulder. No abnormal widening or separation is seen in the left AC joint. Mild degenerative change noted left shoulder and AC joint. Visualized adjacent osseous structures show no acute abnormality. Soft tissues: No significant soft tissue abnormality. XR/XR shoulder LT min 2V* [id number] IMPRESSION: No fracture or dislocation. Mild degenerative changes.
== END 2024-09-02 16:48 | disposition home or self-care (01) ==
PROVIDERS: PCP Nurse Practitioner Family; Visit Provider Nurse Practitioner Family
DX: M25.512 Pain in left shoulder (principal); W18.30XS Fall on same level, unspecified, sequela; M19.012 Primary osteoarthritis, left shoulder
CPT/HCPCS: 73030

== ENCOUNTER 2024-09-16 19:20 | Emergency (ER) | payer MEDICARE, SELFPAY ==
[2024-09-16 19:39] VITALS: BP 139/68; PULSE 74; RESP 17; TEMP 36.6; O2SAT 94; BMI 25.3
--- NOTE | 2024-09-16 20:45 | W.ED.ANIMALB ---
HPI - Animal Bite General: Chief Complaint: Animal Bite Stated Complaint: dog bite right leg maybe some on left leg also Time Seen by Provider: 09/16/24 20:32 Source: patient Mode of arrival: ambulatory Limitations: no limitations History of Present Illness: Patient is an 89-year-old female who presents emerged department complaining of dog bite to bilateral lower extremities. She states that this was her son's dog who is up-to-date on vaccinations, this was while playing with the dog. She states that it has scratched her before. No active bleeding, has been put some triple antibiotic ointment on it before coming in. Tetanus is up-to-date. No other symptoms at this time. Patient does note that these are bites and scratches. Animal: dog Description of animal: household pet and immunizations UTD Mechanism: bite and scratch Location - Extremities: Bilateral: lower leg Context: playing with animal Associated symptoms: Reports no associated symptoms; Deny chills, fever(s) or headache(s) Treatments prior to arrival: antibiotic ointment Related Data Home Medications ?Medication ?Instructions ?Recorded ?Confirmed ezetimibe 10 mg tablet 10 mg PO QAM 02/05/20 07/06/24 levothyroxine 50 mcg tablet 50 mcg PO QAM 02/05/20 07/06/24 (Synthroid) aspirin 81 mg tablet,delayed 81 mg PO QAM 03/28/20 07/06/24 release propylene glycol 0.6 % eye drops 1 drp ophthalmic (eye) BID 03/28/20 07/06/24 (Systane Complete) sertraline 25 mg tablet (Zoloft) 25 mg PO QAM 03/28/20 07/06/24 amlodipine 5 mg tablet 5 mg PO QAM 05/08/21 07/06/24 acetaminophen 500 mg tablet 500 mg PO BID 12/10/22 07/06/24 cyanocobalamin (vitamin B-12) 1,000 mcg PO QAM 12/10/22 07/06/24 1,000 mcg tablet (Vitamin B-12) oxybutynin chloride 5 mg tablet 5 mg PO DAILY@12 12/10/22 07/06/24 vitamin A-vitamin C-vit E-min 1 tab PO QAM 12/10/22 07/06/24 tablet gabapentin 100 mg capsule 100 mg PO DAILY 10/01/23 07/06/24 Previous Rx's ?Medication ?Instructions ?Recorded hydrochlorothiazide 12.5 mg tablet 12.5 mg PO DAILY PRN fluid build 10/19/21 up #14 tabs naproxen 500 mg tablet (Naprosyn) 500 mg PO BID PRN pain #20 tabs 12/15/22 hydrocodone 5 mg-acetaminophen 325 1 tab PO Q8H PRN pain #7 tabs 02/03/23 mg tablet nitrofurantoin 100 mg PO Q12H 7 days #14 caps 09/23/23 monohydrate/macrocrystals 100 mg capsule acetaminophen 325 mg capsule 325 mg PO Q4H PRN fever or 10/04/23 postoperative pain #60 caps ibuprofen 800 mg tablet 800 mg PO TID PRN pain #60 tabs 10/04/23 ondansetron HCl 4 mg tablet 4 mg PO Q8H PRN nausea and 12/31/23 vomiting #14 tabs ondansetron 8 mg disintegrating 8 mg PO .q6 PRN nausea and 01/18/24 tablet vomiting #14 tabs polyethylene glycol 3350 17 4 g PO DAILY #119 grams 01/25/24 gram/dose oral powder (Miralax) amoxicillin 875 mg-potassium 1 tab PO BID #14 tabs 08/09/24 clavulanate 125 mg tablet amoxicillin 875 mg-potassium 1 tab PO BID 10 days #20 tabs 09/16/24 clavulanate 125 mg tablet Allergies Allergy/AdvReac Type Severity Reaction Status Date / Time cephalexin (From Keflex) Allergy Unknown ADR-Diarrhe Verified 09/16/24 19:43 a chlorthalidone Allergy Unknown Unknown Verified 09/16/24 19:43 clindamycin Allergy Unknown Unknown Verified 09/16/24 19:43 lisinopril Allergy Unknown Unknown Verified 09/16/24 19:43 Vwfoqlz-QMG-ChK Reductase Allergy Unknown Verified 09/16/24 19:43 Inhibitor (Leovrpn-Qvl-Vno Reductase Inhibitor) Sulfa (Sulfonamide Allergy ALGY-Rash Verified 09/16/24 19:43 Antibiotics) gemfibrozil (From Lopid) AdvReac Unknown ADR-Diarrhe Verified 09/16/24 19:43 a guaifenesin (From Mucinex) AdvReac Unknown ADR-Diarrhe Verified 09/16/24 19:43 a cefuroxime (From Ceftin) AdvReac ADR-Diarrhe Verified 09/16/24 19:43 a Review of Systems General: Reports: 10 or more systems reviewed and unremarkable except in HPI and below Const: Denies: fever(s) or chills Card: Denies: chest pain Resp: Denies: dyspnea GI: Denies: abdominal pain, nausea, vomiting or diarrhea Musc: Denies: extremity pain or joint pain Skin/Breast: Reports: new lesions (Dog scratches and bites to bilateral lower extremities); Denies: rash, skin pain or skin tenderness Neuro: Denies: headache(s) PFSH ED PFSH: Medical History Urinary frequency Urgency incontinence Female bladder prolapse 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 Acute cystitis with hematuria Basal cell carcinoma of right forehead History of colon cancer Hyperlipidemia Hypothyroidism HTN (hypertension) Tendonitis Surgical History History of colon surgery RECONNECTED COLON History of back surgery Hx of bilateral cataract extraction Hx of hemorrhoidectomy Hx of hysterectomy Hx of partial thyroidectomy Family History Father , AT AGE 91 Diabetes MOTHER AT AGE 95 NATURAL CAUSES Grandmother Breast cancer Social History Smoking and tobacco/nicotine status: unknown if used tobacco/nicotine Alcohol intake: never Household members: spouse Marital status: Current occupational status: retired Physical Exam Const: COMMON NORMALS: no acute distress, average body habitus, patient oriented x3, no limitations, healthy appearing, alert and well nourished HENMT: COMMON NORMALS: normocephalic and atraumatic HEAD & SCALP: normocephalic and atraumatic Neck/C-Spine: COMMON NORMALS: full ROM, no lymphadenopathy, supple and no meningeal signs Resp: COMMON NORMALS: normal respiratory effort, No use of accessory muscles and clear to auscultation bilaterally AUSCULTATION: clear to auscultation bilaterally Cardio: COMMON NORMALS: regular rate and regular rhythm RATE: regular rate RHYTHM: regular rhythm Extremity: COMMON NORMALS: full ROM and capillary refill normal Neuro: COMMON NORMALS: patient oriented x3, moves all extremities, no focal motor deficits and no sensory deficits noted SENSORIUM/ORIENTATION: Yes alert MENINGEAL SIGNS: Yes no meningeal signs Skin: COMMON NORMALS: turgor normal NARRATIVE SKIN EXAM: There are bite bartlett and superficial scratches to bilateral lower extremities, right worse than left. No active bleeding. GENERAL SKIN EXAM: turgor normal Course Vital Signs: Vital signs: Vital Signs Temperature 97.9 F 09/16/24 19:39 Pulse Rate 74 09/16/24 19:39 Respiratory Rate 17 09/16/24 19:39 Blood Pressure 139/68 09/16/24 19:39 Pulse Oximetry 94 09/16/24 19:39 Oxygen Delivery Me thod Room Air 09/16/24 19:39 MDM - Animal Bite Medical Decision Making Patient presented with scratches and superficial bites to lower extremities from vaccinated household dog. These were irrigated here and cleaned, dressed appropriately she will be started on Augmentin. Her tetanus was up-to-date. Will be discharged home. No radiology studies performed this visit Discharge Plan Discharge Patient Disposition: Home Clinical Impression: Dog bite Condition: Stable Prescriptions: New amoxicillin-pot clavulanate 875-125 mg tablet 1 tab PO BID 10 Days Qty: 20 0RF No Action amlodipine 5 mg tablet 5 mg PO QAM nitrofurantoin monohyd/m-cryst 100 mg capsule 100 mg PO Q12H 7 Days Qty: 14 0RF Rx Instructions: must administer with a meal/food levothyroxine [Synthroid] 50 mcg tablet 50 mcg PO QAM ezetimibe 10 mg tablet 10 mg PO QAM aspirin 81 mg Tablet,Delayed Release (Dr/Ec) 81 mg PO QAM sertraline [Zoloft] 25 mg Tablet 25 mg PO QAM Systane Complete 0.6 % Drops 1 drp OPHTHALMIC (EYE) BID hydrochlorothiazide 12.5 mg tablet 12.5 mg PO DAILY PRN (Reason: fluid build up) Qty: 14 0RF cyanocobalamin (vitamin B-12) [Vitamin B-12] 1,000 mcg Tablet 1,000 mcg PO QAM acetaminophen 500 mg Tablet 500 mg PO BID oxybutynin chloride 5 mg tablet 5 mg PO DAILY@12 vitamin A-vitamin C-vit E-min Tablet 1 tab PO QAM naproxen [Naprosyn] 500 mg tablet 500 mg PO BID PRN (Reason: pain) Qty: 20 0RF hydrocodone-acetaminophen 5-325 mg tablet 1 tab PO Q8H PRN (Reason: pain) Qty: 7 0RF gabapentin 100 mg Capsule 100 mg PO DAILY acetaminophen 325 mg capsule 325 mg PO Q4H PRN (Reason: fever or postoperative pain) Qty: 60 0RF ibuprofen 800 mg tablet 800 mg PO TID PRN (Reason: pain) Qty: 60 0RF ondansetron HCl 4 mg tablet 4 mg PO Q8H PRN (Reason: nausea and vomiting) Qty: 14 0RF Miralax 17 gram/dose powder 4 g PO DAILY Qty: 119 0RF amoxicillin-pot clavulanate 875-125 mg tablet 1 tab PO BID Qty: 14 0RF ondansetron 8 mg tablet,disintegrating 8 mg PO .q6 PRN (Reason: nausea and vomiting) Qty: 14 0RF Discharge Orders: Discharge ED (Routine); Ordered 09/16/24 Ordered By: Keagan Aragon Referrals: Dior De La Garza FNP [Primary Care Provider] - Patient Instructions: Animal Bite (ED) Activity Restrictions/Additional Instructions: Take the antibiotics as prescribed. Keep wounds clean and dry. Return with any fever, drainage, severe worsening of pain, or any other symptoms. Follow-up with primary care. Print Language: Sierra Leonean Coding Level of Care Code ED [employer] Att[employer] for Uche Burnett
--- NOTE | 2024-09-16 20:47 | PC.NURSE ---
WOund cleaned with sterile water and gauze. wrapped with telfa and coban.
[2024-09-16] MEDS: amoxicillin-clav 875-125 mg Tablet 1 TAB PO (20:57)
== END 2024-09-16 21:15 | disposition home or self-care (01) ==
PROVIDERS: Emergency Provider Physician Assistant; PCP Nurse Practitioner Family
DX: S80.872A Other superficial bite, left lower leg, initial encounter (principal); S80.871A Other superficial bite, right lower leg, initial encounter; W54.0XXA Bitten by dog, initial encounter; Z79.82 Long term (current) use of aspirin; E78.5 Hyperlipidemia, unspecified; I10 Essential (primary) hypertension; Z85.828 Personal history of other malignant neoplasm of skin; Z85.038 Personal history of other malignant neoplasm of large intestine
CPT/HCPCS: 99283

== ENCOUNTER → 2024-10-12 10:58 | Outpatient (BNVA) | payer MEDICARE, SELFPAY | PROVIDERS: PCP Nurse Practitioner Family; Visit Provider Podiatrist Foot & Ankle Surgery | DX: E11.8 Type 2 diabetes mellitus with unspecified complications (principal); L60.8 Other nail disorders; Z86.73 Personal history of transient ischemic attack (TIA), and cerebral infarction without residual deficits; I73.9 Peripheral vascular disease, unspecified; L60.3 Nail dystrophy | CPT/HCPCS: 11721 ==

== ENCOUNTER 2024-11-30 11:00 | Outpatient (CLI) | payer MEDICARE, SELFPAY ==
--- NOTE | 2024-11-30 11:10 | XR_ITS ---
WS: [id number] Exam: XR chest 2V* [id number] Date/Time of Exam: 11/30/2024 11:19 AM Reason For Exam: COUGH Comparison 06/24/2024. Lungs are clear and fully expanded. Normal cardiomediastinal silhouette. Thoracolumbar levoscoliosis. Probable cholelithiasis. XR/XR chest 2V* [id number] IMPRESSION: 1. No acute cardiopulmonary finding. No change. 2. Probable gallstones.
== END 2024-11-30 11:01 | disposition home or self-care (01) ==
PROVIDERS: PCP Nurse Practitioner Family; Visit Provider Nurse Practitioner Family
DX: R05.9 Cough, unspecified (principal); M41.85 Other forms of scoliosis, thoracolumbar region; R93.3 Abnormal findings on diagnostic imaging of other parts of digestive tract
CPT/HCPCS: 71046

== ENCOUNTER → 2025-01-11 10:55 | Outpatient (BNVA) | payer MEDICARE, SELFPAY | PROVIDERS: PCP Nurse Practitioner Family; Visit Provider Podiatrist Foot & Ankle Surgery | DX: I73.9 Peripheral vascular disease, unspecified (principal); L60.3 Nail dystrophy; L60.8 Other nail disorders; Z86.73 Personal history of transient ischemic attack (TIA), and cerebral infarction without residual deficits | CPT/HCPCS: 11721 ==

== ENCOUNTER 2025-03-15 12:24 | Outpatient (CLI) | payer MEDICARE, SELFPAY ==
--- NOTE | 2025-03-15 12:34 | MM_ITS ---
WS: [id number] BILATERAL 3D TOMOSYNTHESIS DIGITAL SCREENING MAMMOGRAPHY WITH CAD CLINICAL INFORMATION: SCREENING HISTORY: Screening mammogram. No current complaints. COMPARISON: 2023 TECHNIQUE: Bilateral CC and MLO views. FINDINGS: The breasts are composed of heterogeneous fibroglandular density tissue, which can limit the detection of small underlying mass lesions. No suspicious mass, asymmetry, calcifications, or architectural distortion. No evidence of malignancy. Biopsy clip RIGHT breast. Vascular calcifications. Lucent centered calcification LEFT breast. MM/MM [facility] tomosynthesis [id number] IMPRESSION: DENSITY: The breasts are heterogeneously dense, which may obscure small masses. BI-RADS: 2 - Benign FOLLOW UP: 1 Year Follow-up Recommend return to annual screening mammography.
== END 2025-03-15 12:25 | disposition home or self-care (01) ==
LOC: RAD 12:25
PROVIDERS: PCP Nurse Practitioner Family; Visit Provider Nurse Practitioner Family
DX: Z12.31 Encounter for screening mammogram for malignant neoplasm of breast (principal); R92.333 Mammographic heterogeneous density, bilateral breasts; R92.323 Mammographic fibroglandular density, bilateral breasts; R92.1 Mammographic calcification found on diagnostic imaging of breast; Z96.89 Presence of other specified functional implants
CPT/HCPCS: 77063; 77067

== ENCOUNTER 2025-05-01 16:43 | Emergency (ER) | payer MEDICARE, SELFPAY ==
[2025-05-01 16:43] VITALS: BP 178/88; PULSE 77; RESP 18; TEMP 36.8; O2SAT 97; BMI 25.5
--- OUTSIDE RECORDS SUMMARY | 2025-05-01 16:46 | XMS_ITS | Clinical Summary ---
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
--- OUTSIDE RECORDS SUMMARY | 2025-05-01 16:46 | XMS_ITS | Clinical Summary ---
Author Organization [facility] Address [address] [place] [address] Care Team Providers Care Clinique Counter Manager Name Role Phone Josefina Gastelum Primary Care Provider [phone] Allergies Active Allergy Reactions Criticality Noted Date Comments Cefuroxime Diarrhea Low 10/04/2023 Cephalexin Diarrhea Low 10/04/2023 Chlorthalidone Diarrhea Low 10/04/2023 Clindamycin Diarrhea Low 10/04/2023 Empagliflozin Itching Low 11/07/2023 Gemfibrozil Diarrhea Low 10/04/2023 Guaifenesin Diarrhea Low 10/04/2023 Lisinopril Diarrhea Low 10/04/2023 Pioglitazone Rash Low 11/07/2023 Xldgegn-Xrb-Hnr Reductase Inhibitors Unknown 10/04/2023 Sulfa (Sulfonamide Antibiotics) Rash Low 09/20 Medications baclofen (LIORESAL) 10 mg tablet Take 5 mg by mouth daily. 08/19/19 24 Active cholecalciferol, Vitamin D3, (VITAMIN D3) 25 mcg (1,000 unit) Capsule Take by mouth daily. Active cyanocobalamin 1,000 mcg Tablet Take 1,000 mcg by mouth daily. Active nystatin (MYCOSTATIN) 100,000 unit/gram Cream Apply to affected area 2 times daily. 60 Gram 6 11/01/19 24 Active triamcinolone acetonide (KENALOG) 0.1 % CreamIndications:R andra Apply to affected area 2 times daily. 15 Gram 1 11/07/19 24 Active sertraline (ZOLOFT) 25 mg tablet take one tablet by mouth daily 90 Tablet 4 11/21/19 24 Active ondansetron (ZOFRAN ODT) 4 mg Tablet, Rapid DissolveIndication s:Nausea Take 1 Tablet (4 mg) by mouth every 8 hours as needed for Nausea/Emesis. Dissolve tablet on top of tongue, then swallow with saliva. 30 Tablet 3 01/03/20 24 Active traMADoL (ULTRAM) 50 mg tabletIndications: Type 2 diabetes mellitus with diabetic neuropathy, without long-term current use of insulin Take 1 Tablet (50 mg) by mouth 3 times daily as needed for Pain. 60 Tablet 01/05/20 24 Active acetaminophen (TYLENOL) 325 mg tabletIndications: Osteoarthritis of multiple joints, unspecified osteoarthritis type Take 2 Tablets (650 mg) by mouth every 6 hours as needed for Pain. 200 Tablet 3 01/16/20 24 Active SITagliptin phosphate (JANUVIA) 25 mg TabletIndications: Type 2 diabetes mellitus with stage 3a chronic kidney disease, without long-term current use of insulin Take 1 Tablet (25 mg) by mouth daily with breakfast. 100 Tablet 3 01/17/20 24 Active dapagliflozin propanediol (Farxiga) 10 mg TabletIndications: Type 2 diabetes mellitus with stage 3b chronic kidney disease, without long-term current use of insulin Take 1 Tablet (10 mg) by mouth daily in the morning. 100 Tablet 3 01/17/20 24 Active docusate sodium (COLACE) 100 mg capsuleIndications :Chronic constipation Take 1 Capsule (100 mg) by mouth 2 times daily. 60 Capsule 6 02/04/20 24 Active levothyroxine 50 mcg tabletIndications: Postoperative hypothyroidism Take 1 Tablet (50 mcg) by mouth daily. 90 Tablet 1 02/04/20 24 Active ezetimibe (ZETIA) 10 mg tabletIndications: Mixed hyperlipidemia Take 1 Tablet (10 mg) by mouth daily. 90 Tablet 3 02/06/20 24 Active amLODIPine (NORVASC) 5 mg tabletIndications: Benign hypertension Take 1 Tablet (5 mg) by mouth daily. 90 Tablet 3 03/16/20 24 Active tolterodine (DETROL LA) 2 mg Extended Release 24 hour capsuleIndications :Urinary incontinence in female Take 1 Capsule (2 mg) by mouth daily. *NEEDS APPOINTMENT FOR MORE REFILLS* 30 Capsule 02/02/20 25 Active Active Problems Problem Noted Date Diagnosed Date POP-Q stage 3 cystocele 11/03/2023 History of CVA with residual deficit 11/03/2023 Vascular dementia 11/03/2023 Type 2 diabetes mellitus wit h stage 3b chronic kidney disease, without long-term current use of insulin 10/17/2023 Benign hypertension 10/16/2023 Postoperative hypothyroidism 10/16/2023 Urinary incontinence in female 10/16/2023 Mixed hyperlipidemia 10/16/2023 Bilateral leg weakness 10/16/2023 Frail elderly 10/16/2023 Resolved Problems Problem Noted Date Diagnosed Date Resolved Date History of stroke 10/16/2023 11/03/2023 Encounters Date Type Department Care Team Description 04/14/2025 Orders Only [facility] [address] [place] [address] Josefina Gastelum, Type 2 diabetes mellitus with stage 3a chronic kidney disease, without long-term current use of insulin ([facility]) 02/03/2025 External Device Data [facility] ABSTRACTION Provider, Abstract 02/02/2025 External Device Data [facility] ABSTRACTION Provider, Abstract 02/01/2025 Refill [facility] [address] [place] [address] Ebony Jenkins, 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 Urinary incontinence in female from Last 3 Months Social History Tobacco Use Types Packs/Day Years Used Date Smoking Tobacco: Never Passive Smoke Exposure: Never Smokeless Tobacco: Never Tobacco Cessation:Counseling Given: Not Answered Alcohol Use Standard Drinks/Week Comments Never 0 (1 standard drink = 0.6 oz pur e alcohol) Comments No Sex and Gender Information Value Date Recorded Sex Assigned at Not on file 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 Gender Identity Not on file Sexual Orientation Not on file Last Filed Vital Signs Vital Sign Reading Time Taken Comments Blood Pressure 144/48 02/04/2024 1:34 PM CDT Pulse 76 02/04/2024 1:34 PM CDT Temperature 36.3 C (97.4 F) 02/04/2024 1:34 PM CDT Respiratory Rate 17 02/04/2024 1:34 PM CDT Oxygen Saturation 99% 02/04/2024 1:34 PM CDT Inhaled Oxygen Concentration - - Weight 55.7 kg (122 lb 12.8 oz) 02/04/2024 1:34 PM CDT Height 157.5 cm (5' 2 ) 02/04/2024 1:34 PM CDT Body Mass Index 22.46 02/04/2024 1:34 PM CDT Plan of Treatment Health Maintenance Due Date Last Done Comments DIABETES ANNUAL FOOT EXAM 1953 DIABETES ANNUAL RETINAL EXAM 1953 DIABETES MICROALBUMIN ANNUAL SCREEN 1953 DTAP/TDAP/TD VACCINES (1 - Tdap) 1954 PNEUMOCOCCAL VACCINE 50+ YEA RS (1 of 2 - PCV) 1954 ZOSTER VACCINE (1 of 2) 1985 OSTEOPOROSIS SCREENING 2000 RSV VACCINE (60+ or ) (1 - 1-dose 75+ series) 2010 DIABETES HBA1C Q 6 MONTHS 2024 01/16/2024, KHE eGFR (Auto Order) 07/22/2024 01/18/2024 , 01/16/2024, 10/16/2023 KHE uACR (Auto Order) 07/22/2024 [place] ([place]) Prev entative Visit/Annual Wellness Visit 07/22/2024 01/16/2024 DIABETES: A1C (Auto Order) 01/15/2025 01/16/2024, LDL CHOLESTEROL ANNUAL 01/15/2025 01/16/2024, 2023 INFLUENZA VACCINE (#1) 2025 Procedures Procedure Name Priority Date/Time Associated Diagnosis Comments COMPREHENSIVE METABOLIC PANEL Routine 01/18/2024 3:52 PM CDT LIPID PANEL Routine 01/16/2024 4:14 PM CDT Type 2 diabetes mellitus with stage 3a chronic kidney disease, without long-term current use of insulin ([facility]) Mixed hyperlipidemia Benign hypertension Postoperative hypothyroidism HEMOGLOBIN A1C Routine 01/16/2024 4:14 PM CDT Type 2 diabetes mellitus with stage 3a chronic kidney disease, without long-term current use of insulin ([facility]) from Last 3 Months or Most Recently Relevant to Health Maintenance Results * COMPREHENSIVE METABOLIC PANEL (01/18/2024 3:52 PM CDT) Blood us Abstract Provider CHEMISTRY ORDERABLES Final Res ult * (ABNORMAL) HEMOGLOBIN A1C (01/16/2024 4:14 PM CDT) HEMOGLOBIN A1C 6.9(H) <5.7 % of total Hgb [facility] Comment: For someone without known diabetes, a hemoglobin A1c value of 6.5% or greater indicates that they may have diabetes and this should be confirmed with a follow-up test. For someone with known diabetes, a value <7% indicates that their diabetes is well controlled and a value greater than or equal to 7% indicates suboptimal control. A1c targets should be individualized based on duration of diabetes, age, comorbid conditions, and other considerations. Currently, no consensus exists regarding use of hemoglobin A1c for diagnosis of diabetes for children. ESTIMATED AVERAGE GLUCOSE (MG/DL) 151 mg/dL [facility] ESTIMATED AVERAGE GLUCOSE (MMOL/L) 8.4 mmol/L [facility] Comment: This test was performed on the [employer] andrew c503 platform. Effective 10/07/23, a change in test platforms from the [employer] Application Support Technician to the [employer]isha andrew c503 may have shifted HbA1c results compared to historical results. Based on laboratory validation testing conducted at [facility], the [employer]isha platform relative to the [employer] platform had an average increase in HbA1c value of < or = 0.3%. This difference is within accepted variability established by the National Glycohemoglobin Standardization Program. Note that not all individuals will have had a shift in their results and direct comparisons between historical and current results for testing conducted on different platforms is not recommended. Test Performed at: [facility] [id number] [id number] Rosendo Cadet MD Blood 01/16/2024 4:14 PM CDT 01/17/2024 3:34 AM CDT Ebony GARCIA CHEMISTRY ORDERABLES Final Result [facility] [phone] [place] [id number] [phone] * (ABNORMAL) LIPID PANEL (01/16/2024 4:14 PM CDT) CHOLESTEROL 158 <200 mg/dL [facility] HDL 42(L) > OR = 50 mg/dL [facility] TRIGLYCERIDE 148 <150 mg/dL [facility] LDL CALCULATED 91 mg/dL (calc) [facility] Comment: Reference range: <100 Desirable range <100 mg/dL for primary prevention; <70 mg/dL for patients with CHD or diabetic patients with > or = 2 CHD risk factors. LDL-C is now calculated using the Garrett-Brenda calculation, which is a validated novel method providing better accuracy than the Friedewald equation in the estimation of LDL-C. Garrett SS et al. ARIELLA. 2013;310(27): 8790-4150 (http://education.[employer]/faq/ZRE544) CHOL/HDL RATIO 3.8 <5.0 (calc) [facility] NON-HDL CHOLESTEROL 116 <130 mg/dL (calc) [facility] Comment: For patients with diabetes plus 1 major ASCVD risk factor, treating to a non-HDL-C goal of <100 mg/dL (LDL-C of <70 mg/dL) is considered a therapeutic option. Test Performed at: [facility] [id number] [phone] Rosendo Cadet MD Blood 01/16/2024 4:14 PM CDT 01/17/2024 3:34 AM CDT Ebony Jenkins 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 CHEMISTRY ORDERABLES Final Result [facility] [phone] [place] [id number] [phone] from Last 3 Months or Most Recently Relevant to Health Maintenance [place] [address] [place] [address] DUAL COMPLETE PPO DSNP [facility] [id number] Member Subscriber Plan / Payer (Ef fective 2023-Present) Name:Deanne Hankins Relation to Subscriber:Self Name:Deanne Hankins Payer ID:[id number] (NAIC) Type:PPO Address: [place] [id number] Care Teams Clinique Counter Manager Relationship Specialty Start Date End Date Josefina Gastelum DO [address] [place] [address] PCP - General Family Practice 10/16/23
--- OUTSIDE RECORDS SUMMARY | 2025-05-01 16:46 | XMS_ITS | Encounter Summary ---
Author Organization [facility] Address [address] [place] [address] Care Team Providers Care Book Canvasser Name Role Phone Unavailable Primary Care Provider Unavailabl e Encounter Details Date Type Department Care Team (Latest Contact Info) Description 09/14/2005 Outpatient Historical [facility] Rheumatology- [place] [address] [place] [address] Darlene Styles MD [address] [place], [place] [id number] LUMB/LUMBOSAC DISC DEGEN (Primary Dx) Social History Tobacco Use Types Packs/Day Years Used Date Smoking Tobacco: Never Assessed Comments Unknown Sex and Gender Information Value Date Recorded Sex Assigned at Not on file 

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
[2025-05-01 17:30] LABS: Add Urine Microscopic? YES; Glucose Urine UA Norm (Normal); Nitrate Urine Negative (Negative); Specific Gravity, Urine 1.020 (1.005-1.030)
[2025-05-01 17:36] LABS: Hematocrit 44.5 % (36-47); Hemoglobin 14.90 g/dL (11.27-16.99); Mean Corpuscular HGB Conc 33.5 g/dL (30-55); Mean Corpuscular Hemoglobin 30.7 pg (27-33); Mean Corpuscular Volume 91.8 fl (85-98); Nucleated Red Blood Cells % 0 %; Platelet Count 275 10^3/cmm (157-399); Red Blood Count 4.85 10^6/uL (3.85-5.65); White Blood Count 11.34 10^3/uL (3.29-11.43)
[2025-05-01 18:00] LABS: Alanine Aminotransferase 10 U/L (0-33); Albumin Level 4.2 g/dL (3.5-5.2); Alkaline Phosphatase 81 U/L (35-105); Anion Gap 17.7 (5-19); Aspartate Amino Transferase 15 U/L (0-32); Blood Urea Nitrogen 22 mg/dL (8-23); Calcium 9.2 mg/dL (8.5-10.5); Carbon Dioxide 21 mmol/L (22-29); Chloride 107 mmol/L (98-107); Creatinine Clr Calc Pharmacy 22.8895; Globulin 2.7 g/dL (1.3-4.6); Glucose 124 mg/dL (65-115); Osmolality Calculated 299 mOsm/kg (285-295); Potassium 3.7 mmol/L (3.5-5.1); Sodium 142 mmol/L (136-145); Total Protein 6.9 g/dL (6.6-8.7)
[2025-05-01 18:24] VITALS: BP 179/96; PULSE 79; O2SAT 97
== END 2025-05-01 18:25 | disposition home or self-care (01) ==
PROVIDERS: Emergency Provider Physician Assistant; PCP Nurse Practitioner Family
DX: F02.84 Dementia in other diseases classified elsewhere, unspecified severity, with anxiety (principal)
CPT/HCPCS: 36415; 80053; 81001; 85025; 99283

== ENCOUNTER → 2025-05-10 09:44 | Outpatient (BNVA) | payer MEDICARE, SELFPAY | PROVIDERS: PCP Nurse Practitioner Family; Visit Provider Podiatrist Foot & Ankle Surgery | DX: E11.8 Type 2 diabetes mellitus with unspecified complications (principal); L60.3 Nail dystrophy; L60.8 Other nail disorders; Z86.73 Personal history of transient ischemic attack (TIA), and cerebral infarction without residual deficits; I73.9 Peripheral vascular disease, unspecified | CPT/HCPCS: 11721 ==

== ENCOUNTER 2025-06-23 02:26 | Emergency (ER) | payer MEDICARE, SELFPAY ==
[2025-06-23 02:27] VITALS: BP 149/93; PULSE 83; RESP 16; TEMP 36.8; O2SAT 93; BMI 23.3
--- OUTSIDE RECORDS SUMMARY | 2025-06-23 02:34 | XMS_ITS | Clinical Summary ---
Author Organization [employer] [facility] Address [address] [place]: [place] [address] Care Team Providers Care Technical Producer Name Role Phone Unavailable Primary Care Provider Unavailabl e Social History Tobacco Use Types Packs/Day Years Used Date Smoking Tobacco: Never Assessed Comments Unknown Sex and Gender Information Value Date Recorded Sex Assigned at Not on file Legal Sex Female 4:09 AM [employer]ENT[employer] Gender Identity Not on file Sexual Orientation [...]
--- OUTSIDE RECORDS SUMMARY | 2025-06-23 02:34 | XMS_ITS | Clinical Summary ---
Author Organization [facility] Address [address] [place] [address] Care Team Providers Care Dean Of Girls Name Role Phone Josefina Gastelum Primary Care Provider Allergies Active Allergy Reactions Criticality Noted Date Comments Cefuroxime Diarrhea Low 10/04/2023 Cephalexin Diarrhea Low 10/04/2023 Chlorthalidone Diarrhea Low 10/04/2023 Clindamycin Diarrhea Low 10/04/2023 Empagliflozin Itching Low 11/07/2023 Gemfibrozil Diarrhea Low 10/04/2023 Guaifenesin Diarrhea Low 10/04/2023 Lisinopril Diarrhea Low 10/04/2023 Pioglitazone Rash Low 11/07/2023 Zsucmcn-Iug-Hhz Reductase Inhibitors Unknown 10/04/2023 Sulfa (Sulfonamide Antibiotics) [...] neuropathy, without long-term current use of insulin ([facility]) Take 1 Tablet (50 mg) by mouth [...] disease, without long-term current use of insulin ([facility]) Take 1 Tablet (25 mg) by mouth daily with breakfast. 100 Tablet 3 01/17/20 24 Active dapagliflozin propanediol (Farxiga) 10 mg TabletIndications: Type 2 diabetes mellitus with stage 3b chronic kidney disease, without long-term current use of insulin ([facility]) Take 1 Tablet (10 mg) by mouth [...] Encounters Date Type Department Care Team Description 05/20/2025 Refill [facility] [address] [place] [address] Ebony Jenkins FNP 05/19/2025 Orders Only [facility] [address] [place] [address] Josefina Gastelum, Type 2 diabetes mellitus with stage 3a chronic kidney disease, without long-term current use of insulin 04/14/2025 Orders Only [facility] [address] [place] [address] Josefina Gastelum, Type 2 diabetes mellitus with stage 3a chronic kidney disease, without long-term current use of insulin ([facility]) from Last 3 Months Social History Tobacco [...] on file 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 Gender Identity Not on file Sexual Orientation [...] KHE uACR (Auto Order) 07/22/2024 Medicare Advantage ([place]) Prev entative Visit/Annual Wellness Visit 07/22/2024 01/16/2024 DIABETES: A1C (Auto Order) 01/15/2025 01/16/2024, LDL CHOLESTEROL ANNUAL 01/15/2025 01/16/2024, 2023 INFLUENZA VACCINE (#1) 2025 Procedures Procedure Name Priority Date/Time Associated Diagnosis Comments COMPREHENSIVE METABOLIC PANEL Routine 01/18/2024 3:52 PM CDT LIPID PANEL Routine 01/16/2024 4:14 PM CDT Type 2 diabetes mellitus with stage 3a chronic kidney disease, without long-term current use of insulin ([facility]) Mixed hyperlipidemia Benign hypertension Postoperative hypothyroidism HEMOGLOBIN A1C Routine 01/16/2024 4:14 PM CDT Type 2 diabetes mellitus with stage 3a chronic kidney disease, without long-term current use of insulin (CMS/HCC) from Last 3 Months or Most Recently Relevant to Health Maintenance Results * COMPREHENSIVE METABOLIC PANEL (01/18/2024 3:52 PM CDT) Blood us Abstract Provider CHEMISTRY ORDERABLES Final Res ult * (ABNORMAL) HEMOGLOBIN A1C (01/16/2024 4:14 PM CDT) HEMOGLOBIN A1C 6.9(H) <5.7 % of total Hgb [facility] Comment: For someone without known diabetes, [...] children. ESTIMATED AVERAGE GLUCOSE (MG/DL) 151 mg/dL [facility] ESTIMATED AVERAGE GLUCOSE (MMOL/L) 8.4 mmol/L [facility] Comment: This test was performed on the Tenisha andrew c503 platform. Effective 10/07/23, a change in test platforms from the [employer] to the Tenisha andrew c503 may have shifted HbA1c results compared to historical results. Based on laboratory validation testing conducted at [facility], the Tenisha platform relative to the Lowry [...] platforms is not recommended. Test Performed at: [facility] [address] [place] [address] Rosendo Cadet MD Blood 01/16/2024 4:14 PM CDT 01/17/2024 3:34 AM CDT Ebony GARCIA CHEMISTRY ORDERABLES Final Result [facility] [phone] [facility] [address] [facility] [place] [address] * (ABNORMAL) LIPID PANEL (01/16/2024 4:14 PM [...] factors. LDL-C is now calculated using the Refugio calculation, which is a validated novel method providing better accuracy than the Friedewald equation in the estimation of LDL-C. Garrett SS et al. ARIELLA. 2013;310(19): 3144-5873 (http://education.[employer]/faq/RWO975) CHOL/HDL RATIO 3.8 <5.0 (calc) [facility] NON-HDL CHOLESTEROL 116 <130 mg/dL (calc) [facility] Comment: For patients with diabetes plus 1 major ASCVD risk factor, treating to a non-HDL-C goal of <100 mg/dL (LDL-C of <70 mg/dL) is considered a therapeutic option. Test Performed at: [facility] [address] [place] [address] [place] [address] Rosendo Cadet MD Blood 01/16/2024 4:14 PM CDT 01/17/2024 3:34 AM CDT Ebony Jenkins HEALTH EDUCATION TEACHER CHEMISTRY ORDERABLES Final Result [facility] [phone] [facility] [address] [address] from Last 3 Months or Most Recently Relevant to Health Maintenance Insurance [facility] DUAL COMPLETE PPO DSNP [facility] [id number] Care Teams Dean Of Girls Relationship Specialty Start Date End Date Josefina Gastelum DO [address] [facility] [place] [address] PCP - General Family Practice 10/16/23
--- OUTSIDE RECORDS SUMMARY | 2025-06-23 02:34 | XMS_ITS | Encounter Summary ---
Author Organization [facility] Address [address] [place] [address] Care Team Providers Care Garment Patternmaker Name Role Phone Unavailable Primary Care Provider Unavailabl e Encounter Details Date Type Department Care Team (Latest Contact Info) Description 09/14/2005 Outpatient Historical [facility] Rheumatology- Delroy Emery [place] [address] [place] [address] Darlene Styles MD [address] [place], [place] [id number] LUMB/LUMBOSAC DISC DEGEN (Primary Dx) Social History Tobacco Use Types Packs/Day Years Used Date Smoking Tobacco: Never Assessed Comments Unknown Sex and Gender Information Value Date Recorded Sex Assigned at Not on file 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
[2025-06-23 02:51] VITALS: BP 149/93; PULSE 84; O2SAT 94
--- NOTE | 2025-06-23 03:01 | W.ED.NAVMDI ---
HPI - Nausea/Vomiting/Diarrhea General: Chief complaint: Nausea/Vomiting/Diarrhea Stated complaint: n/v/d Time Seen by Provider: 06/23/25 02:39 History of Present Illness: 89-year-old female past medical history significant for dementia, stroke, UTI, presenting to the emergency department with acute onset of nonbloody vomiting and diarrhea that started this evening acutely, no suspicious food intake, no fever, no abdominal pain, reports that symptoms have somewhat improved after Zofran administered by EMS but that she generally feels worn down currently, she reports that she felt fine at earlier in the day. Related Data Home Medications ?Medication ?Instructions ?Recorded ?Confirmed ezetimibe 10 mg tablet 10 mg PO QAM 02/05/20 05/10/25 levothyroxine 50 mcg tablet 50 mcg PO QAM 02/05/20 05/10/25 (Synthroid) aspirin 81 mg tablet,delayed 81 mg PO QAM 03/28/20 05/10/25 release propylene glycol 0.6 % eye drops 1 drp ophthalmic (eye) BID 03/28/20 05/10/25 (Systane Complete) sertraline 25 mg tablet (Zoloft) 25 mg PO QAM 03/28/20 05/10/25 amlodipine 5 mg tablet 5 mg PO QAM 05/08/21 05/10/25 acetaminophen 500 mg tablet 500 mg PO BID 12/10/22 05/10/25 cyanocobalamin (vitamin B-12) 1,000 mcg PO QAM 12/10/22 05/10/25 1,000 mcg tablet (Vitamin B-12) oxybutynin chloride 5 mg tablet 5 mg PO DAILY@12 12/10/22 05/10/25 vitamin A-vitamin C-vit E-min 1 tab PO QAM 12/10/22 05/10/25 tablet gabapentin 100 mg capsule 100 mg PO DAILY 10/01/23 05/10/25 Previous Rx's ?Medication ?Instructions ?Recorded hydrochlorothiazide 12.5 mg tablet 12.5 mg PO DAILY PRN fluid build 10/19/21 up #14 tabs naproxen 500 mg tablet (Naprosyn) 500 mg PO BID PRN pain #20 tabs 12/15/22 hydrocodone 5 mg-acetaminophen 325 1 tab PO Q8H PRN pain #7 tabs 07/16/23 mg tablet acetaminophen 325 mg capsule 325 mg PO Q4H PRN fever or 10/04/23 postoperative pain #60 caps ibuprofen 800 mg tablet 800 mg PO TID PRN pain #60 tabs 10/04/23 ondansetron HCl 4 mg tablet 4 mg PO Q8H PRN nausea and 12/31/23 vomiting #14 tabs ondansetron 8 mg disintegrating 8 mg PO .q6 PRN nausea and 01/18/24 tablet vomiting #14 tabs polyethylene glycol 3350 17 4 g PO DAILY #119 grams 01/25/24 gram/dose oral powder (Miralax) famotidine 20 mg tablet (Pepcid) 20 mg PO BID 7 days #14 tabs 06/23/25 ondansetron 8 mg disintegrating 8 mg PO Q8H PRN nausea and 06/23/25 tablet vomiting 5 days #14 tabs Allergies Allergy/AdvReac Type Severity Reaction Status Date / Time cephalexin (From Keflex) Allergy Unknown ADR-Diarrhe Verified 05/10/25 09:55 a chlorthalidone Allergy Unknown Unknown Verified 05/10/25 09:55 clindamycin Allergy Unknown Unknown Verified 05/10/25 09:55 lisinopril Allergy Unknown Unknown Verified 05/10/25 09:55 Xiqlcdd-AWY-OdO Reductase Allergy Unknown Verified 05/10/25 09:55 Inhibitor (Hnibdwj-Bla-Dcd Reductase Inhibitor) Sulfa (Sulfonamide Allergy ALGY-Rash Verified 05/10/25 09:55 Antibiotics) gemfibrozil (From Lopid) AdvReac Unknown ADR-Diarrhe Verified 05/10/25 09:55 a guaifenesin (From Mucinex) AdvReac Unknown ADR-Diarrhe Verified 05/10/25 09:55 a cefuroxime (From Ceftin) AdvReac ADR-Diarrhe Verified 05/10/25 09:55 a PFSH ED PFSH: Medical History Urinary frequency Urgency incontinence Female bladder prolapse 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 Acute cystitis with hematuria Basal cell carcinoma of right forehead History of colon cancer Hyperlipidemia Hypothyroidism HTN (hypertension) Tendonitis Surgical History History of colon surgery RECONNECTED COLON History of back surgery Hx of bilateral cataract extraction Hx of hemorrhoidectomy Hx of hysterectomy Hx of partial thyroidectomy Family History Father , AT AGE 91 Diabetes MOTHER AT AGE 95 NATURAL CAUSES Grandmother Breast cancer Social History Smoking and tobacco/nicotine status: never used tobacco/nicotine Alcohol intake: never Household members: spouse Marital status: Current occupational status: retired Physical Exam Narrative: EXAM NARRATIVE: Gen: A&Ox4, no acute distress, nontoxic appearing HEENT: Normocephalic, atraumatic, no scleral icterus, external ears normal, dry mucous membranes Neck: Supple, full range of motion, no observable masses Lungs: No Respiratory distress, Lungs clear to auscultation bilaterally no rales, rhonchi, wheezing CV: Regular rate and rhythm, no murmur, no pitting edema to lower extremities bilaterally Abdomen: Soft, nondistended, nontender to palpation, normal bowel sounds MSK: No joint swelling, FROM all 4 extremities Skin: No rashes, petechiae, lesions. Normal color per patient. Neuro: Alert and oriented, no slurred speech, sensation and strength grossly intact all 4 extremities Psych: Appropriate for situation. Course Reevaluation(s): Reevaluation #1: Patient reevaluated at this time, she reports generalized fatigue but that her nausea has improved, no further episodes of vomiting, she still denies any abdominal pain, her vital signs are stable, her blood work is generally reassuring, stable for discharge with presumptive care for likely gastroenteritis, patient and family member at the bedside counseled on return precautions to include developing any significant abdominal pain, recurrent vomiting or diarrhea leading to dehydration, or fever. Time: 04:28 Vital Signs: Vital signs: Vital Signs Temperature 98.3 F 06/23/25 02:27 Pulse Rate 73 06/23/25 04:00 Respiratory Rate 16 06/23/25 02:27 Blood Pressure 178/64 06/23/25 04:00 Pulse Oximetry 94 06/23/25 04:00 Oxygen Delivery Me thod Room Air 06/23/25 02:51 MDM - Nausea/Vomiting/Diarrhea Medical Decision Making 89-year-old female history of dementia and stroke, presenting to the emergency department with acute onset of vomiting and diarrhea that started this evening, mildly dehydrated appearing on exam but otherwise with no abdominal pain or abdominal tenderness to palpation, symptoms improved after Zofran given by EMS, vital signs generally reassuring in the emergency department, plan for labs, supportive care, reassess for disposition, urinalysis rule out UTI. Lab Data Labs showing leukocytosis to 13, no anemia, creatinine at baseline 1.2, electrolytes normal, liver function test normal, no UTI on urinalysis, normal lipase 06/23/25 03:02 06/23/25 03:02 Laboratory Results WBC 13.86 10^3/uL (3.29-11.43) H 06/23/25 03:02 RBC 4.87 10^6/uL (3.85-5.65) 06/23/25 03:02 Hgb 14.70 g/dL (11.27-16.99) 06/23/25 03:02 Hct 44.8 % (36-47) 06/23/25 03:02 MCV 92.0 fl (85-98) 06/23/25 03:02 MCH 30.2 pg (27-33) 06/23/25 03:02 MCHC 32.8 g/dL (30-55) 06/23/25 03:02 RDW 13.6 % (12.1-15.1) 06/23/25 03:02 Plt Count 243 10^3/cmm (157-399) 06/23/25 03:02 MPV 10.1 fL (7.4-10.4) 06/23/25 03:02 Neut % (Auto) 88.6 % 06/23/25 03:02 Lymph % (Auto) 4.8 % 06/23/25 03:02 Ashley % (Auto) 4.5 % 06/23/25 03:02 Eos % (Auto) 1.6 % 06/23/25 03:02 Baso % (Auto) 0.1 % 06/23/25 03:02 Neut # (Auto) 12.28 10^3/uL (1.8-7.7) H 06/23/25 03:02 Lymph # (Auto) 0.7 10^3/uL (0.8-4.8) L 06/23/25 03:02 Ashley # (Auto) 0.6 10^3/uL (0.2-0.9) 06/23/25 03:02 Eos # (Auto) 0.2 10^3/uL (0.0-0.8) 06/23/25 03:02 Baso # (Auto) 0.0 10^3/uL (0.0-0.1) 06/23/25 03:02 Nucleated RBC % (auto) 0 % 06/23/25 03:02 Nucleated RBCs # 0.0 /100WBC 06/23/25 03:02 Sodium 142 mmol/L (136-145) 06/23/25 03:02 Potassium 4.6 mmol/L (3.5-5.1) 06/23/25 03:02 Chloride 106 mmol/L (98-107) 06/23/25 03:02 Carbon Dioxide 22 mmol/L (22-29) 06/23/25 03:02 Anion Gap 18.6 (5-19) 06/23/25 03:02 BUN 30 mg/dL (8-23) H 06/23/25 03:02 Creatinine 1.2 mg/dL (0.5-0.9) H 06/23/25 03:02 GFR Calculation Not Reportable 06/23/25 03:02 Glucose 204 mg/dL (65-115) H 06/23/25 03:02 Calculated Osmolality 306 mOsm/kg (285-295) H 06/23/25 03:02 Calcium 9.2 mg/dL (8.5-10.5) 06/23/25 03:02 Total Bilirubin 0.4 mg/dL (0.15-1.2) 06/23/25 03:02 AST 16 U/L (0-32) 06/23/25 03:02 ALT 12 U/L (0-33) 06/23/25 03:02 Alkaline Phosphatase 77 U/L (35-105) 06/23/25 03:02 Total Protein 6.7 g/dL (6.6-8.7) 06/23/25 03:02 Albumin 4.2 g/dL (3.5-5.2) 06/23/25 03:02 Globulin 2.5 g/dL (1.3-4.6) 06/23/25 03:02 Lipase 36 U/L (13-60) 06/23/25 03:02 Urine Color Yellow (Yellow) 06/23/25 03:40 Urine Appearance Clear (CLEAR) 06/23/25 03:40 Urine pH 5.5 (5-7) 06/23/25 03:40 Ur Specific [place] 1.023 (1.005-1.030) 06/23/25 03:40 Urine Protein 3+ (Negative) A 06/23/25 03:40 Urine Glucose (UA) Negative (Normal) 06/23/25 03:40 Urine Ketones Trace (Negative) 06/23/25 03:40 Urine Blood Negative (Negative) 06/23/25 03:40 Urine Nitrate Negative (Negative) 06/23/25 03:40 Urine Bilirubin Negative (Negative) 06/23/25 03:40 Urine Urobilinogen 0.2 mg/dL (Negative) 06/23/25 03:40 Ur Leukocyte Esterase Negative (Negative) 06/23/25 03:40 Urine RBC 0-2 /hpf (0-2) 06/23/25 03:40 Urine WBC 0-5 /hpf (0-5) 06/23/25 03:40 Ur Squamous Epith Cells 0-5 /hpf (0-5) 06/23/25 03:40 Amorphous Sediment Not Reportable 06/23/25 03:40 Urine Bacteria None seen /hpf (NONE) 06/23/25 03:40 Hyaline Casts 2.05 /lpf 06/23/25 03:40 No radiology studies performed this visit Discharge Plan Discharge Patient Disposition: Home Clinical Impression: Gastroenteritis Condition: Stable Prescriptions: New ondansetron 8 mg tablet,disintegrating 8 mg PO Q8H PRN (Reason: nausea and vomiting) 5 Days Qty: 14 0RF famotidine [Pepcid] 20 mg tablet 20 mg PO BID 7 Days Qty: 14 0RF No Action amlodipine 5 mg tablet 5 mg PO QAM levothyroxine [Synthroid] 50 mcg tablet 50 mcg PO QAM ezetimibe 10 mg tablet 10 mg PO QAM aspirin 81 mg Tablet,Delayed Release (Dr/Ec) 81 mg PO QAM sertraline [Zoloft] 25 mg Tablet 25 mg PO QAM Systane Complete 0.6 % Drops 1 drp OPHTHALMIC (EYE) BID hydrochlorothiazide 12.5 mg tablet 12.5 mg PO DAILY PRN (Reason: fluid build up) Qty: 14 0RF cyanocobalamin (vitamin B-12) [Vitamin B-12] 1,000 mcg Tablet 1,000 mcg PO QAM acetaminophen 500 mg Tablet 500 mg PO BID oxybutynin chloride 5 mg tablet 5 mg PO DAILY@12 vitamin A-vitamin C-vit E-min Tablet 1 tab PO QAM naproxen [Naprosyn] 500 mg tablet 500 mg PO BID PRN (Reason: pain) Qty: 20 0RF hydrocodone-acetaminophen 5-325 mg tablet 1 tab PO Q8H PRN (Reason: pain) Qty: 7 0RF gabapentin 100 mg Capsule 100 mg PO DAILY acetaminophen 325 mg capsule 325 mg PO Q4H PRN (Reason: fever or postoperative pain) Qty: 60 0RF ibuprofen 800 mg tablet 800 mg PO TID PRN (Reason: pain) Qty: 60 0RF ondansetron HCl 4 mg tablet 4 mg PO Q8H PRN (Reason: nausea and vomiting) Qty: 14 0RF Miralax 17 gram/dose powder 4 g PO DAILY Qty: 119 0RF ondansetron 8 mg tablet,disintegrating 8 mg PO .q6 PRN (Reason: nausea and vomiting) Qty: 14 0RF Discharge Orders: Discharge ED (Routine); Ordered 06/23/25 Ordered By: Gerald Tucker Referrals: De La Garza,RADHA Rader [Primary Care Provider, Nurse Practitioner] Patient Instructions: Patient Portal & Ruel Instructions, Gastroenteritis (DC) Print Language: Mohawk Coding Level of Care Code ED Ip Paralegal for Uche Burnett
[2025-06-23 03:09] LABS: Hematocrit 44.8 % (36-47); Hemoglobin 14.70 g/dL (11.27-16.99); Mean Corpuscular HGB Conc 32.8 g/dL (30-55); Mean Corpuscular Hemoglobin 30.2 pg (27-33); Mean Corpuscular Volume 92.0 fl (85-98); Nucleated Red Blood Cells % 0 %; Platelet Count 243 10^3/cmm (157-399); Red Blood Count 4.87 10^6/uL (3.85-5.65); White Blood Count 13.86 10^3/uL (3.29-11.43)
[2025-06-23 03:34] LABS: Alanine Aminotransferase 12 U/L (0-33); Albumin Level 4.2 g/dL (3.5-5.2); Alkaline Phosphatase 77 U/L (35-105); Aspartate Amino Transferase 16 U/L (0-32); Blood Urea Nitrogen 30 mg/dL (8-23); Calcium 9.2 mg/dL (8.5-10.5); Carbon Dioxide 22 mmol/L (22-29); Chloride 106 mmol/L (98-107); Globulin 2.5 g/dL (1.3-4.6); Glucose 204 mg/dL (65-115); Lipase 36 U/L (13-60); Osmolality Calculated 306 mOsm/kg (285-295); Sodium 142 mmol/L (136-145); Total Protein 6.7 g/dL (6.6-8.7)
[2025-06-23 03:41] LABS: Anion Gap 18.6 (5-19); Potassium 4.6 mmol/L (3.5-5.1)
[2025-06-23] MEDS: ondansetron 2 mg/ML SDV 2 mL 4 MG IVP (03:43)
[2025-06-23 03:50] LABS: Glucose Urine UA Negative (Normal); Nitrate Urine Negative (Negative); Specific Gravity, Urine 1.023 (1.005-1.030)
[2025-06-23 03:53] LABS: Universal Test for UA Present (0)
[2025-06-23 04:00] VITALS: BP 178/64; PULSE 73; O2SAT 94
[2025-06-23 05:17] VITALS: BP 166/72; PULSE 74; O2SAT 93
== END 2025-06-23 05:10 | disposition home or self-care (01) ==
PROVIDERS: Emergency Provider Student in an Organized Health Care Education/Training Program; PCP Nurse Practitioner Family
DX: K52.9 Noninfective gastroenteritis and colitis, unspecified (principal); Z79.82 Long term (current) use of aspirin; E78.5 Hyperlipidemia, unspecified; I10 Essential (primary) hypertension; Z85.038 Personal history of other malignant neoplasm of large intestine; Z85.828 Personal history of other malignant neoplasm of skin
CPT/HCPCS: 80053; 81001; 83690; 85025; 96361; 96374; 96375; 99284; J2405; J3490; J7030

== ENCOUNTER 2025-07-06 21:10 | Emergency (ER) | payer MEDICARE, SELFPAY ==
[2025-07-06 21:06] VITALS: BP 164/95; PULSE 80; RESP 17; TEMP 36.9; O2SAT 96; BMI 28.1
--- OUTSIDE RECORDS SUMMARY | 2025-07-06 21:17 | XMS_ITS | Encounter Summary ---
Author Organization [facility] Address [address] [place] [address] Care Team Providers Care Certified Ski Patroller Name Role Phone Unavailable Primary Care Provider Unavailabl e Encounter Details Date Type Department Care Team (Latest Contact Info) Description 09/14/2005 Outpatient Historical [facility] Rheumatology- Delroy Addison [place] [address] [place] [address] Darlene Styles MD [address] [place], [place] [id number] LUMB/LUMBOSAC DISC DEGEN (Primary Dx) Social History Tobacco Use Types Packs/Day Years Used Date Smoking Tobacco: Never Assessed Comments Unknown Sex and Gender Information Value Date Recorded Sex Assigned at Not on file 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
--- OUTSIDE RECORDS SUMMARY | 2025-07-06 21:17 | XMS_ITS | Clinical Summary ---
Author Organization [facility] Address [address] 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
--- OUTSIDE RECORDS SUMMARY | 2025-07-06 21:17 | XMS_ITS | Encounter Summary ---
Author Organization [facility] Address [address] [place] [address] Care Team Providers Care Javascript Developer Name Role Phone Josefina Gastelum DO Primary Care Provider Encounter Details Date Type Department Care Team (Late st Contact Info) Description 06/30/2025 Orders Only [facility] Medicine [place] [address] [place] [address] Josefina Gastelum DO [address] [place] [address] Type 2 diabetes mellitus with stage 3a chronic kidney disease, without long-term current use of insulin (CMS/HCC) Social History Tobacco Use Types Packs/Day Years Used Date Smoking Tobacco: Never Passive Smoke Exposure: Never Smokeless Tobacco: Never Alcohol Use Standard Drinks/Week Comments Never 0 (1 standard drink = 0.6 oz pur e alcohol) Comments No Sex and Gender Information Value Date Recorded Sex Assigned at Not on file 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 Gender Identity Not on file Sexual Orientation Not on file documented as of this encounter Plan of Treatment Scheduled Orders Name Type Priority Associated Diagnoses Orde r Schedule HEMOGLOBIN A1C Lab Routine Type 2 diabetes mellitus with stage 3a chronic kidney disease, without long-term current use of insulin (CMS/HCC) Expected: 07/10/2025 (Approximate), Expires: 07/20/2025 documented as of this encounter Visit Diagnoses Diagnosis Type 2 diabetes mellitus with stage 3a chronic kidney disease, without long-term current use of insulin (CMS/HCC) documented in this encounter Care Teams Javascript Developer Relationship Specialty Start Date End Date Josefina Gastelum DO [address] [place] [address] PCP - General Family Practice 10/16/23 documented as of this encounter
--- OUTSIDE RECORDS SUMMARY | 2025-07-06 21:17 | XMS_ITS | Clinical Summary ---
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 Athletics Name Role Phone Josefina Gastelum Primary Care Provider Allergies Active Allergy Reactions Criticality Noted Date Comments Cefuroxime Diarrhea Low 10/04/2023 Cephalexin Diarrhea Low 10/04/2023 Chlorthalidone Diarrhea Low 10/04/2023 Clindamycin Diarrhea Low 10/04/2023 Empagliflozin Itching Low 11/07/2023 Gemfibrozil Diarrhea Low 10/04/2023 Guaifenesin Diarrhea Low 10/04/2023 Lisinopril Diarrhea Low 10/04/2023 Pioglitazone Rash Low 11/07/2023 Gatkmwo-Sru-Hqz Reductase Inhibitors Unknown 10/04/2023 Sulfa (Sulfonamide Antibiotics) [...] neuropathy, without long-term current use of insulin ([facility]) Take 1 Tablet (50 mg) by mouth [...] disease, without long-term current use of insulin ([facility]) Take 1 Tablet (25 mg) by mouth daily with breakfast. 100 Tablet 3 01/17/20 24 Active dapagliflozin propanediol (Farxiga) 10 mg TabletIndications: Type 2 diabetes mellitus with stage 3b chronic kidney disease, without long-term current use of insulin ([facility]) Take 1 Tablet (10 mg) by mouth [...] Encounters Date Type Department Care Team Description 06/30/2025 Orders Only [facility] [address] [place] [address] Josefina Gastelum, Type 2 diabetes mellitus with stage 3a chronic kidney disease, without long-term current use of insulin ([facility]) 06/23/2025 Patient Outreach [facility] [address] [place] [address] Ebony Jenkins FNP Missed Call 05/20/2025 Refill [facility] [address] [place] [address] Ebony Jenkins FNP 05/19/2025 Orders Only [facility] [address] [place] [address] Josefina Gastelum, Type 2 diabetes mellitus with stage 3a chronic kidney disease, without long-term current use of insulin 04/14/2025 Orders Only [facility] [address] [place] [address] Josefina Gastelum, Type 2 diabetes mellitus with stage 3a chronic kidney disease, without long-term current use of insulin ([facility]) from Last 3 Months Social History Tobacco [...] on file Legal Sex Female 4:47 AM [employer] Gender Identity Not on file Sexual [...] KHE uACR (Auto Order) 07/22/2024 [place] ([place] Prev entative Visit/Annual Wellness Visit 07/22/2024 01/16/2024 DIABETES: A1C (Auto Order) 01/15/2025 01/16/2024, LDL CHOLESTEROL ANNUAL 01/15/2025 01/16/2024, 2023 INFLUENZA VACCINE (#1) 2025 Procedures Procedure Name Priority Date/Time Associated Diagnosis Comments COMPREHENSIVE METABOLIC PANEL Routine 01/18/2024 3:52 PM CDT LIPID PANEL Routine 01/16/2024 4:14 PM CDT Type 2 diabetes mellitus with stage 3a chronic kidney disease, without long-term current use of insulin ([facility]) Mixed hyperlipidemia Benign hypertension Postoperative hypothyroidism HEMOGLOBIN A1C Routine 01/16/2024 4:14 PM CDT Type 2 diabetes mellitus with stage 3a chronic kidney disease, without long-term current use of insulin ([facility]) from Last 3 Months or Most Recently Relevant to Health Maintenance Results * COMPREHENSIVE METABOLIC PANEL (01/18/2024 3:52 PM CDT) Blood us Abstract Provider CHEMISTRY ORDERABLES Final Res ult * (ABNORMAL) HEMOGLOBIN A1C (01/16/2024 4:14 PM CDT) HEMOGLOBIN A1C 6.9(H) <5.7 % of total Hgb [facility] Comment: For someone without known diabetes, [...] children. ESTIMATED AVERAGE GLUCOSE (MG/DL) 151 mg/dL [facility] ESTIMATED AVERAGE GLUCOSE (MMOL/L) 8.4 mmol/L [facility] Comment: This test was performed on the [employer]isha andrew c503 platform. Effective 10/07/23, a change in test platforms from the [employer] to the [employer]isha andrew c503 may have shifted HbA1c results compared to historical results. Based on laboratory validation testing conducted at [facility], the Tenisha platform relative to the Lowry [...] platforms is not recommended. Test Performed at: [facility] [id number] [facility] [place] [address] Rosendo Cadet MD Blood 01/16/2024 4:14 PM CDT 01/17/2024 3:34 AM CDT Ebony Simpson Jenkins TAR POT MAN CHEMISTRY ORDERABLES Final Result [facility] [phone] [facility] [id number] [place] [address] [place] [address] * (ABNORMAL) LIPID PANEL (01/16/2024 4:14 PM CDT) CHOLESTEROL 158 <200 mg/dL [facility] HDL 42(L) > OR = 50 mg/dL [facility] TRIGLYCERIDE 148 <150 mg/dL [facility] LDL CALCULATED 91 mg/dL (calc) [facility] Comment: Reference range: <100 Desirable range <100 mg/dL for primary prevention; <70 mg/dL for patients with CHD or diabetic patients with > or = 2 CHD risk factors. LDL-C is now calculated using the Garrett-Brenda calculation, which is a validated novel method providing better accuracy than the Friedewald equation in the estimation of LDL-C. Garrett SS et al. ARIELLA. 2013;310(19): 2923-5059 (http://education.Networker.PV [employer]/faq/ODX940) CHOL/HDL RATIO 3.8 <5.0 (calc) [facility] NON-HDL CHOLESTEROL 116 <130 mg/dL (calc) [facility] Comment: For patients with diabetes plus 1 major ASCVD risk factor, treating to a non-HDL-C goal of <100 mg/dL (LDL-C of <70 mg/dL) is considered a therapeutic option. Test Performed at: [facility] [address] [facility] [place] [address] Rosendo Cadet MD Blood 01/16/2024 4:14 PM CDT 01/17/2024 3:34 AM CDT Ebony Jenkins TAR [employer]OT MAN CHEMISTRY ORDERABLES Final Result [facility] [phone] [facility] [address] [place] [address] from Last 3 Months or Most Recently Relevant to Health Maintenance Insurance [facility] [id number] Care Teams Director Of Intercollegiate Athletics Relationship Specialty Start Date End Date Josefina Gastelum DO [address] [place] [address] PCP - General Family Practice 10/16/23
--- NOTE | 2025-07-06 21:28 | XRR_ITS ---
PROCEDURE INFORMATION: Exam: XR Left Ribs Exam date and time: 07/06/2025 9:30 PM Age: 89 years old Clinical indication: Injury or trauma; Fall; Chest wall; Blunt trauma; Additional info: Fall at 1500 today TECHNIQUE: Imaging protocol: Radiologic exam of the left ribs. Views: 2 views. COMPARISON: CR XR ribs LT mn 3V w CXR1V [id number] 12/10/2022 10:47 AM FINDINGS: Bones/joints: Normal. Soft tissues: Normal. XR/XR ribs LT 2V* [id number] IMPRESSION: No acute findings.
[2025-07-06] MEDS: HYDROcodone-acetaminophen 5-325 mg Tablet 1 TAB PO (21:34)
[2025-07-06 22:00] VITALS: BP 143/89; PULSE 77; O2SAT 94
--- NOTE | 2025-07-06 22:09 | W.ED.FALL ---
HPI - Fall General: Chief Complaint: Fall Stated Complaint: fall- left rib pain Source: patient Mode of arrival: EMS Limitations: no limitations History of Present Illness: Patient is an 89-year-old female who presents to the emergency department by ambulance for a fall today. Reportedly fell around 1500 as she slipped off of the couch, patient tells me she was wearing slick pants and this caused her to slip and fall onto her left side. States that it took the wind out of her she initially had trouble breathing but this is resolved but has had persistent pain to the left lateral chest area. At this time has no complaints until she moves or coughs and has the pain, has not taken anything for pain. No history of previous rib fractures, no other injuries with the fall she specifically did not hit her head. MD complaint: fall Onset (ago): hour(s) Fall from: other (off of couch) Place fall occurred: home Loss of consciousness: None Location of injury: chest Associated symptoms-after fall: Denies abdominal pain, chest pain, headache(s) or neck pain Related Data Home Medications ?Medication ?Instructions ?Recorded ?Confirmed ezetimibe 10 mg tablet 10 mg PO QAM 02/05/20 05/10/25 levothyroxine 50 mcg tablet 50 mcg PO QAM 02/05/20 05/10/25 (Synthroid) aspirin 81 mg tablet,delayed 81 mg PO QAM 03/28/20 05/10/25 release propylene glycol 0.6 % eye drops 1 drp ophthalmic (eye) BID 03/28/20 05/10/25 (Systane Complete) sertraline 25 mg tablet (Zoloft) 25 mg PO QAM 03/28/20 05/10/25 amlodipine 5 mg tablet 5 mg PO QAM 05/08/21 05/10/25 acetaminophen 500 mg tablet 500 mg PO BID 12/10/22 05/10/25 cyanocobalamin (vitamin B-12) 1,000 mcg PO QAM 12/10/22 05/10/25 1,000 mcg tablet (Vitamin B-12) oxybutynin chloride 5 mg tablet 5 mg PO DAILY@12 12/10/22 05/10/25 vitamin A-vitamin C-vit E-min 1 tab PO QAM 12/10/22 05/10/25 tablet gabapentin 100 mg capsule 100 mg PO DAILY 10/01/23 05/10/25 Previous Rx's ?Medication ?Instructions ?Recorded hydrochlorothiazide 12.5 mg tablet 12.5 mg PO DAILY PRN fluid build 10/19/21 up #14 tabs naproxen 500 mg tablet (Naprosyn) 500 mg PO BID PRN pain #20 tabs 12/15/22 hydrocodone 5 mg-acetaminophen 325 1 tab PO Q8H PRN pain #7 tabs 02/03/23 mg tablet acetaminophen 325 mg capsule 325 mg PO Q4H PRN fever or 10/04/23 postoperative pain #60 caps ibuprofen 800 mg tablet 800 mg PO TID PRN pain #60 tabs 10/04/23 ondansetron HCl 4 mg tablet 4 mg PO Q8H PRN nausea and 12/31/23 vomiting #14 tabs ondansetron 8 mg disintegrating 8 mg PO .q6 PRN nausea and 01/18/24 tablet vomiting #14 tabs polyethylene glycol 3350 17 4 g PO DAILY #119 grams 01/25/24 gram/dose oral powder (Miralax) Allergies Allergy/AdvReac Type Severity Reaction Status Date / Time cephalexin (From Keflex) Allergy Unknown ADR-Diarrhe Verified 07/06/25 21:11 a chlorthalidone Allergy Unknown Unknown Verified 07/06/25 21:11 clindamycin Allergy Unknown Unknown Verified 07/06/25 21:11 lisinopril Allergy Unknown Unknown Verified 07/06/25 21:11 Yzwlhcz-HRC-QrK Reductase Allergy Unknown Verified 07/06/25 21:11 Inhibitor (Dvdthnh-Ian-Hee Reductase Inhibitor) Sulfa (Sulfonamide Allergy ALGY-Rash Verified 07/06/25 21:11 Antibiotics) gemfibrozil (From Lopid) AdvReac Unknown ADR-Diarrhe Verified 07/06/25 21:11 a guaifenesin (From Mucinex) AdvReac Unknown ADR-Diarrhe Verified 07/06/25 21:11 a cefuroxime (From Ceftin) AdvReac ADR-Diarrhe Verified 07/06/25 21:11 a Review of Systems General: Reports: 10 or more systems reviewed and unremarkable except in HPI and below Const: Reports: other (fall); Denies: fever(s) or chills Card: Denies: chest pain Resp: Denies: dyspnea or productive cough GI: Denies: abdominal pain, nausea, vomiting or diarrhea : Denies: flank pain Musc: Reports: other (left chest wall pain, rib pain); Denies: neck pain, back pain, extremity pain, extremity swelling, joint pain, joint swelling, joint redness, joint warmth, limited range of motion or muscle weakness Skin/Breast: Denies: rash Neuro: Denies: headache(s), numbness in extremities or weakness in extremities PFSH ED PFSH: Medical History Urinary frequency Urgency incontinence Female bladder prolapse 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 Acute cystitis with hematuria Basal cell carcinoma of right forehead History of colon cancer Hyperlipidemia Hypothyroidism HTN (hypertension) Tendonitis Surgical History History of colon surgery RECONNECTED COLON History of back surgery Hx of bilateral cataract extraction Hx of hemorrhoidectomy Hx of hysterectomy Hx of partial thyroidectomy Family History Father , AT AGE 91 Diabetes MOTHER AT AGE 95 NATURAL CAUSES Grandmother Breast cancer Social History Smoking and tobacco/nicotine status: never used tobacco/nicotine Alcohol intake: never Household members: spouse Marital status: Current occupational status: retired Physical Exam Const: COMMON NORMALS: no acute distress, patient oriented x3, no limitations, healthy appearing, alert and well nourished HENMT: COMMON NORMALS: normocephalic and atraumatic HEAD & SCALP: normocephalic and atraumatic Neck/C-Spine: COMMON NORMALS: full ROM, supple and no meningeal signs Chest: OTHER: Reproducible tenderness to palpation to left anterolateral chest wall, no flail chest, step-off deformity, bruising, or edema Resp: COMMON NORMALS: normal respiratory effort, No use of accessory muscles and clear to auscultation bilaterally AUSCULTATION: clear to auscultation bilaterally Cardio: COMMON NORMALS: regular rate and regular rhythm RATE: regular rate RHYTHM: regular rhythm Extremity: COMMON NORMALS: normal to inspection, full ROM, capillary refill normal, no joint enlargement and no clubbing, cyanosis or edema Neuro: COMMON NORMALS: patient oriented x3, moves all extremities, no focal motor deficits and no sensory deficits noted SENSORIUM/ORIENTATION: Yes alert MENINGEAL SIGNS: Yes no meningeal signs Skin: COMMON NORMALS: no rashes or lesions noted GENERAL SKIN EXAM: no rashes or lesions noted Course Vital Signs: Vital signs: Vital Signs Temperature 98.4 F 07/06/25 21:06 Pulse Rate 77 07/06/25 22:00 Respiratory Rate 17 07/06/25 21:06 Blood Pressure 143/89 07/06/25 22:00 Pulse Oximetry 94 07/06/25 22:00 Oxygen Delivery Me thod Room Air 07/06/25 22:00 MDM - Fall Medical Decision Making Patient presents by message for falling earlier today, complains of left anterolateral chest wall pain of which x-ray rules out any acute fracture of the ribs. Patient respirating well her oxygen saturations are normal. No other injuries from the fall, no further workup necessary in the ED at this time will be discharged home. Lab Data Radiology Impressions Ribs X-Ray 07/06/25 21:28 IMPRESSION: No acute findings. All radiology interpretation(s) finalized by discharge Discharge Plan Discharge Condition: Stable Prescriptions: No Action amlodipine 5 mg tablet 5 mg PO QAM levothyroxine [Synthroid] 50 mcg tablet 50 mcg PO QAM ezetimibe 10 mg tablet 10 mg PO QAM aspirin 81 mg Tablet,Delayed Release (Dr/Ec) 81 mg PO QAM sertraline [Zoloft] 25 mg Tablet 25 mg PO QAM Systane Complete 0.6 % Drops 1 drp OPHTHALMIC (EYE) BID hydrochlorothiazide 12.5 mg tablet 12.5 mg PO DAILY PRN (Reason: fluid build up) Qty: 14 0RF cyanocobalamin (vitamin B-12) [Vitamin B-12] 1,000 mcg Tablet 1,000 mcg PO QAM acetaminophen 500 mg Tablet 500 mg PO BID oxybutynin chloride 5 mg tablet 5 mg PO DAILY@12 vitamin A-vitamin C-vit E-min Tablet 1 tab PO QAM naproxen [Naprosyn] 500 mg tablet 500 mg PO BID PRN (Reason: pain) Qty: 20 0RF hydrocodone-acetaminophen 5-325 mg tablet 1 tab PO Q8H PRN (Reason: pain) Qty: 7 0RF gabapentin 100 mg Capsule 100 mg PO DAILY acetaminophen 325 mg capsule 325 mg PO Q4H PRN (Reason: fever or postoperative pain) Qty: 60 0RF ibuprofen 800 mg tablet 800 mg PO TID PRN (Reason: pain) Qty: 60 0RF ondansetron HCl 4 mg tablet 4 mg PO Q8H PRN (Reason: nausea and vomiting) Qty: 14 0RF Miralax 17 gram/dose powder 4 g PO DAILY Qty: 119 0RF ondansetron 8 mg tablet,disintegrating 8 mg PO .q6 PRN (Reason: nausea and vomiting) Qty: 14 0RF Referrals: De La Garza,Dior, DATA WAREHOUSE ADMINISTRATOR [Primary Care Provider, Nurse Practitioner] Print Language: Cameroonian Coding Level of Care Code ED Second Cook And Baker for Uche Burnett
[2025-07-06 22:52] VITALS: BP 147/62; PULSE 76; O2SAT 94
== END 2025-07-06 22:45 | disposition home or self-care (01) ==
PROVIDERS: Emergency Provider Physician Assistant; PCP Nurse Practitioner Family
DX: R07.89 Other chest pain (principal)
CPT/HCPCS: 71100; 99283; J9999